=== PATIENT | male | born 1950 | race Hispanic/Latino ===

== ENCOUNTER 2017-10-05 07:49 | Emergency (ER) | payer BC, MEDICARE ==
[~2017-10-05] VITALS: Ht 172.7 cm; Wt 81.6 kg
[2017-10-05 09:07] VITALS: BP 155/89
== END 2017-10-05 10:20 | disposition home or self-care (01) ==
LOC: ER 07:49
DX: Z43.1 Encounter for attention to gastrostomy (principal); I10 Essential (primary) hypertension; E11.9 Type 2 diabetes mellitus without complications; I50.9 Heart failure, unspecified; Z86.73 Personal history of transient ischemic attack (TIA), and cerebral infarction without residual deficits
CPT/HCPCS: 99283

== ENCOUNTER 2017-10-05 16:58 | Emergency (ER) | payer MEDICARE ==
[~2017-10-05] VITALS: Ht 172.7 cm; Wt 81.6 kg
== END 2017-10-05 17:07 | disposition home or self-care (01) ==
LOC: ER 16:58
DX: Z43.1 Encounter for attention to gastrostomy (principal); I10 Essential (primary) hypertension; E11.9 Type 2 diabetes mellitus without complications; Z86.73 Personal history of transient ischemic attack (TIA), and cerebral infarction without residual deficits
CPT/HCPCS: 99282

== ENCOUNTER 2017-10-06 19:40 | Observation (INO) | payer MEDICARE, OTHER ==
[~2017-10-06] VITALS: Ht 172.7 cm; Wt 76.7 kg
[2017-10-06 22:53] LABS: BASOPHILS # (AUTO) 0.1 (0.0-0.1); BASOPHILS % 0.9 % (0.0-1.0); EOSINOPHILS # (AUTO) 0.3 (0.0-0.4); EOSINOPHILS % 4.1 % (0.0-6.0); HEMATOCRIT 36.5 % (38.2-49.6); HEMOGLOBIN 11.8 g/dL (14.0-18.0); LYMPHOCYTES # (AUTO) 2.1 (1.0-3.2); LYMPHOCYTES % 26.9 % (18.0-39.1); MEAN CORPUSCULAR HEMOGLOBIN 27.3 pg (28-32); MEAN CORPUSCULAR HGB CONC 32.3 g/dL (31-35); MEAN CORPUSCULAR VOLUME 84.5 fL (81-99); MONOCYTES # (AUTO) 0.8 (0.2-0.8); MONOCYTES % 10.2 % (4.4-11.3); NEUTROPHILS # (AUTO) 4.5 (2.1-6.9); NEUTROPHILS % 57.5 % (38.7-80.0); PLATELET COUNT 365 x10e3/uL (140-360); RED BLOOD COUNT 4.32 x10e6/uL (4.3-5.7); RED CELL DISTRIBUTION WIDTH 19.3 % (11.7-14.4)
[2017-10-06 23:03] LABS: INR 1.14; PARTIAL THROMBOPLASTIN TIME 30.8 seconds (23.8-35.5); PROTHROMBIN TIME 15.2 seconds (11.9-14.5)
[2017-10-06 23:08] LABS: ANION GAP 13.6 mmol/L (8-16); BLOOD UREA NITROGEN 17 mg/dL (7-26); BUN/CREATININE RATIO 26 (6-25); CALCIUM 9.6 mg/dL (8.4-10.2); CARBON DIOXIDE 28 mmol/L (22-29); CHLORIDE 98 mmol/L (98-107); CREATININE, SERUM 0.65 mg/dL (0.72-1.25); EST GLOMERULAR FILTRATION RATE > 60 ML/MIN (60-); GLUCOSE 123 mg/dL (74-118); POTASSIUM 3.6 mmol/L (3.5-5.1); SODIUM 136 mmol/L (136-145)
[2017-10-07] MEDS ORDERED: DEXTROSE 50% SYRINGE 50 ML IV PRN
[2017-10-07] MEDS ORDERED: HYDRALAZINE HCL 20 MG/ML VIAL IV PRN
[2017-10-07] MEDS ORDERED: ONDANSETRON HCL INJ 2 MG/ML VIAL IV PRN
[2017-10-07] MEDS ORDERED: ATORVASTATIN CA20 MG PEG (00:05)
[2017-10-07] MEDS ORDERED: METFORMIN HCL500 MG PEG (00:05)
[2017-10-07] MEDS ORDERED: ASPIR 8181 MG PEG (00:05)
[2017-10-07] MEDS ORDERED: LISINOPRIL10 MG PEG (00:05)
[2017-10-07] MEDS ORDERED: METOPROLOL TART50 MG PEG (00:05)
[2017-10-07] MEDS ORDERED: DOXAZOSIN MESYLA2 MG PEG (00:05)
[2017-10-07] MEDS ORDERED: ATIVAN1 MG PEG (00:05)
[2017-10-07] MEDS ORDERED: SERTRALINE HCL50 MG PEG (00:05)
[2017-10-07] MEDS ORDERED: GABAPENTIN300 MG PEG (00:05)
[2017-10-07] MEDS ORDERED: AMLODIPINE BESY10 MG PEG (00:05)
[2017-10-07] MEDS ORDERED: DOCUSATE SODIU100 MG PEG (00:05)
[2017-10-07] MEDS ORDERED: NYSTATIN1 EAC1 PEG (00:05)
[2017-10-07] MEDS ORDERED: APLXABAN PEG (00:05)
[2017-10-07] MEDS ORDERED: MAGNESIUM OXID400 MG PEG (00:05)
[2017-10-07] MEDS ORDERED: MELATONIN3 MG PEG (00:05)
[2017-10-07] MEDS ORDERED: ARICEPT5 MG PEG (00:05)
[2017-10-07] MEDS ORDERED: FAMOTIDINE20 MG PEG (00:05)
[2017-10-07] MEDS ORDERED: MODAFINIL100 MG PEG (00:05)
[2017-10-07] MEDS: SODIUM CHLORIDE 0.9% 1000ML 1,000 ML IV SCH ×2 (00:17→13:10)
[2017-10-07 01:50] VITALS: BP 161/75
[2017-10-07 03:53] VITALS: BP 161/75
[2017-10-07 05:00] VITALS: BP 147/72
[2017-10-07] MEDS: INSULIN REGULAR, HUMAN 100 UNIT/1 ML 3ML VIAL SQ SCH ×2 (07:30→11:30)
[2017-10-07 08:28] VITALS: BP 171/94
[2017-10-07] MEDS ORDERED: MIDAZOLAM HCL 2 MG/2 ML VIAL ONE (09:24)
[2017-10-07] MEDS ORDERED: LIDOCAINE HCL 2% LOCAL 20 ML VIAL ONE (09:24)
[2017-10-07] MEDS ORDERED: FENTANYL CITRATE/PF 100MCG/2 ML INJ ONE (09:24)
[2017-10-07] MEDS ORDERED: SODIUM CHLORIDE 0.9% 500ML 1,000 ML ONE (09:25)
[2017-10-07] MEDS ORDERED: IOPAMIDOL 370 MG/ML 200 ML INFUS..BTL INJ ONE (09:54)
[2017-10-07 12:42] VITALS: BP 134/98
--- NOTE | 2017-10-07 14:41 | Diagnostic Imaging Report ---
Gastrostomy placement October 07, 2017 Pre-Procedure Diagnosis: Inability to tolerate oral feeding. Post-procedure Diagnosis:Inability to tolerate oral feeding. Indication for procedure: Dislodged gastrostomy Service Desk Agent: Freda Bang Sound Printer: None Sedation: Moderate sedation was provided with intravenous fentanyl and Versed. Heart rate, rhythm and oxygen saturation were monitored in real-time by a dedicated interventional radiology nurse under my direct supervision. Blood pressure was monitored in 5 minute increments. 1% lidocaine was used for local anesthesia. Total sedation time: 30 minutes Radiation Dose: 105.9 cGycm2 (Dose Area Product) Fluoroscopy time: 0.3 minutes Estimate blood loss: <5 mL Blood administered: None Complications: None Implants/Grafts: 14-Vietnamese Endovine Gastrostomy Specimen: None Procedure: Informed consent was obtained and the patient placed supine. The patient's noted that the gastrostomy catheter had been dislodged 4 times in the previous 72 hours. The gastrostomy was replaced with different hospitals each time it was dislodged. There are no available comparison studies. A timeout was performed. The abdomen was prepped and draped in standard sterile fashion. The ostomy of the previously placed gastrostomy was probed with a KMP catheter and Glidewire. The catheter was passed through the tract into the gastric body. Contrast injection confirmed placement. The KMP was exchanged for a 14-Vietnamese balloon retention Endovine gastrostomy catheter. The retention balloon was insufflated with 5 mL normal saline. Contrast injection confirmed placement. The retention bumper was sutured to the skin given recurrent dislodgment. Sterile dressing was applied. Findings: Gastrostomy catheter within the gastric body. Impression: 1. Successful 14-Vietnamese gastrostomy catheter placement. 2. The retention bumper was sutured to the patient's skin given recurrent dislodgment. The patient's was educated regarding available ports for feeding and the balloon port. This report was generated with voice-recognition technology. Errors in airfield engineer officer can occur. Please interpret accordingly and contact a radiologist if there are any questions regarding the report. Signed by: Dr. Quintin Bang M.D. on 10/07/2017 2:37 PM
--- NOTE | 2017-10-07 14:41 | Diagnostic Imaging Report ---
Gastrostomy placement October 07, 2017 Pre-Procedure Diagnosis: Inability to tolerate oral feeding. Post-procedure Diagnosis:Inability to tolerate oral feeding. Indication for procedure: Dislodged gastrostomy Chili Maker: Freda Bang Senior Cost Analyst: None Sedation: Moderate sedation was provided with intravenous fentanyl and Versed. Heart rate, rhythm and oxygen saturation were monitored in real-time by a dedicated interventional radiology nurse under my direct supervision. Blood pressure was monitored in 5 minute increments. 1% lidocaine was used for local anesthesia. Total sedation time: 30 minutes Radiation Dose: 105.9 cGycm2 (Dose Area Product) Fluoroscopy time: 0.3 minutes Estimate blood loss: <5 mL Blood administered: None Complications: None Implants/Grafts: 14-Kenyan Endovine Gastrostomy Specimen: None Procedure: Informed consent was obtained and the patient placed supine. The patient's noted that the gastrostomy catheter had been dislodged 4 times in the previous 72 hours. The gastrostomy was replaced with different hospitals each time it was dislodged. There are no available comparison studies. A timeout was performed. The abdomen was prepped and draped in standard sterile fashion. The ostomy of the previously placed gastrostomy was probed with a KMP catheter and Glidewire. The catheter was passed through the tract into the gastric body. Contrast injection confirmed placement. The KMP was exchanged for a 14-Kenyan balloon retention Endovine gastrostomy catheter. The retention balloon was insufflated with 5 mL normal saline. Contrast injection confirmed placement. The retention bumper was sutured to the skin given recurrent dislodgment. Sterile dressing was applied. Findings: Gastrostomy catheter within the gastric body. Impression: 1. Successful 14-Kenyan gastrostomy catheter placement. 2. The retention bumper was sutured to the patient's skin given recurrent dislodgment. The patient's was educated regarding available ports for feeding and the balloon port. This report was generated with voice-recognition technology. Errors in job order clerk can occur. Please interpret accordingly and contact a radiologist if there are any questions regarding the report. Signed by: Dr. Quintin Bang M.D. on 10/07/2017 2:37 PM
== END 2017-10-07 14:55 ==
LOC: ER 19:40 → ERHOLD 10-07 00:17 → IMCU 10-07 01:23
DX: Z43.1 Encounter for attention to gastrostomy (principal); I69.320 Aphasia following cerebral infarction; I69.351 Hemiplegia and hemiparesis following cerebral infarction affecting right dominant side
CPT/HCPCS: 36415 ×2; 49440; 74470; 80048; 82948; 85025; 85610; 85730; 96361; 99284; C1769; G0378; J0360; J2001; J2250; J7030; J7040; Q9967

== ENCOUNTER → 2017-10-20 | Outpatient (CLI) | payer OTHER ==
[~2017-10-20] MED LIST: AMLODIPINE BESY10 MG PEG; APLXABAN PEG; ARICEPT5 MG PEG; ASPIR 8181 MG PEG; ATIVAN1 MG PEG; ATORVASTATIN CA20 MG PEG; DOCUSATE SODIU100 MG PEG; DOXAZOSIN MESYLA2 MG PEG; FAMOTIDINE20 MG PEG; GABAPENTIN300 MG PEG; LISINOPRIL10 MG PEG; MAGNESIUM OXID400 MG PEG; MELATONIN3 MG PEG; METFORMIN HCL500 MG PEG; METOPROLOL TART50 MG PEG; MODAFINIL100 MG PEG; NYSTATIN1 EAC1 PEG; SERTRALINE HCL50 MG PEG
[2017-10-20 17:07] LABS: BASOPHILS # (AUTO) 0.1 (0.0-0.1); BASOPHILS % 0.9 % (0.0-1.0); EOSINOPHILS # (AUTO) 0.3 (0.0-0.4); EOSINOPHILS % 3.5 % (0.0-6.0); HEMATOCRIT 37.5 % (38.2-49.6); HEMOGLOBIN 12.1 g/dL (14.0-18.0); LYMPHOCYTES # (AUTO) 1.8 (1.0-3.2); LYMPHOCYTES % 23.1 % (18.0-39.1); MEAN CORPUSCULAR HEMOGLOBIN 28.1 pg (28-32); MEAN CORPUSCULAR HGB CONC 32.3 g/dL (31-35); MONOCYTES # (AUTO) 0.7 (0.2-0.8); MONOCYTES % 9.6 % (4.4-11.3); NEUTROPHILS # (AUTO) 4.8 (2.1-6.9); NEUTROPHILS % 62.5 % (38.7-80.0); PLATELET COUNT 264 x10e3/uL (140-360); RED BLOOD COUNT 4.31 x10e6/uL (4.3-5.7); RED CELL DISTRIBUTION WIDTH 18.2 % (11.7-14.4)
[2017-10-20 17:21] LABS: BLOOD UREA NITROGEN 21 mg/dL (7-26); BUN/CREATININE RATIO 34 (6-25); CALCIUM 10.3 mg/dL (8.4-10.2); CARBON DIOXIDE 26 mmol/L (22-29); CHLORIDE 96 mmol/L (98-107); CREATININE, SERUM 0.62 mg/dL (0.72-1.25); EST GLOMERULAR FILTRATION RATE > 60 ML/MIN (60-); GLUCOSE 75 mg/dL (74-118); SODIUM 135 mmol/L (136-145)
== END ==
LOC: NPA 13:30
DX: Z02.89 Encounter for other administrative examinations (principal)
CPT/HCPCS: 36415; 80048; 85025

== ENCOUNTER → 2017-10-31 | Outpatient (CLI) | payer OTHER ==
[2017-10-31 17:17] LABS: ANION GAP 15.2 mmol/L (8-16); BLOOD UREA NITROGEN 13 mg/dL (7-26); BUN/CREATININE RATIO 21 (6-25); CALCIUM 9.8 mg/dL (8.4-10.2); CARBON DIOXIDE 25 mmol/L (22-29); CHLORIDE 98 mmol/L (98-107); CREATININE, SERUM 0.63 mg/dL (0.72-1.25); EST GLOMERULAR FILTRATION RATE > 60 ML/MIN (60-); GLUCOSE 95 mg/dL (74-118); POTASSIUM 4.2 mmol/L (3.5-5.1); SODIUM 134 mmol/L (136-145)
[2017-10-31 17:18] LABS: BASOPHILS % 0.6 % (0.0-1.0); EOSINOPHILS # (AUTO) 0.2 (0.0-0.4); EOSINOPHILS % 3.4 % (0.0-6.0); HEMATOCRIT 37.5 % (38.2-49.6); HEMOGLOBIN 12.3 g/dL (14.0-18.0); LYMPHOCYTES % 28.5 % (18.0-39.1); MEAN CORPUSCULAR HGB CONC 32.8 g/dL (31-35); MEAN CORPUSCULAR VOLUME 85.4 fL (81-99); MONOCYTES # (AUTO) 0.7 (0.2-0.8); MONOCYTES % 9.2 % (4.4-11.3); NEUTROPHILS # (AUTO) 4.1 (2.1-6.9); PLATELET COUNT 291 x10e3/uL (140-360); RED BLOOD COUNT 4.39 x10e6/uL (4.3-5.7); RED CELL DISTRIBUTION WIDTH 16.6 % (11.7-14.4)
== END ==
LOC: NPA 11:00
DX: Z02.89 Encounter for other administrative examinations (principal)
CPT/HCPCS: 36415; 80048; 85025

== ENCOUNTER → 2017-11-21 | Outpatient (CLI) | payer OTHER ==
[2017-11-21 17:32] LABS: BASOPHILS % 0.3 % (0.0-1.0); EOSINOPHILS # (AUTO) 0.2 (0.0-0.4); EOSINOPHILS % 3.3 % (0.0-6.0); HEMATOCRIT 38.7 % (38.2-49.6); HEMOGLOBIN 12.7 g/dL (14.0-18.0); LYMPHOCYTES # (AUTO) 2.2 (1.0-3.2); MEAN CORPUSCULAR HEMOGLOBIN 28.7 pg (28-32); MEAN CORPUSCULAR HGB CONC 32.8 g/dL (31-35); MEAN CORPUSCULAR VOLUME 87.6 fL (81-99); MONOCYTES # (AUTO) 0.5 (0.2-0.8); NEUTROPHILS # (AUTO) 3.8 (2.1-6.9); NEUTROPHILS % 56.3 % (38.7-80.0); PLATELET COUNT 280 x10e3/uL (140-360); RED BLOOD COUNT 4.42 x10e6/uL (4.3-5.7); RED CELL DISTRIBUTION WIDTH 16.2 % (11.7-14.4)
[2017-11-21 17:33] LABS: ANION GAP 12.6 mmol/L (8-16); BLOOD UREA NITROGEN 19 mg/dL (7-26); BUN/CREATININE RATIO 24 (6-25); CALCIUM 9.8 mg/dL (8.4-10.2); CARBON DIOXIDE 24 mmol/L (22-29); CHLORIDE 106 mmol/L (98-107); CREATININE, SERUM 0.78 mg/dL (0.72-1.25); EST GLOMERULAR FILTRATION RATE > 60 ML/MIN (60-); GLUCOSE 113 mg/dL (74-118); POTASSIUM 3.6 mmol/L (3.5-5.1); SODIUM 139 mmol/L (136-145)
== END ==
LOC: NPA 12:22
DX: Z02.89 Encounter for other administrative examinations (principal)
CPT/HCPCS: 36415; 80048; 85025

== ENCOUNTER 2017-12-10 17:40 | Emergency (ER) | payer MEDICARE, OTHER ==
[~2017-12-10] VITALS: Ht 172.7 cm; Wt 78.9 kg
--- OUTSIDE RECORDS SUMMARY | 2017-12-10 17:44 | XMS REPORT ---
Author Author [facility] Address Unknown Phone Unavailable Care Team Providers Care Junior Net Developer Name Role Phone JAXSON SOSA Unavailable Unavailable Problems This patient has no known problems. Allergies, Adverse Reactions, Alerts This patient has no known allergies or adverse reactions. Medications This patient has no known medications. 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 Post-procedure Diagnosis:Inability to tolerate oral feeding. Indication for procedure: Dislodged gastrostomy Film Spooler: Freda Bang Molder Automobile Carpets: None Sedation: Moderate sedation was provided with intravenous fentanyl and Versed. Heart rate, rhythm and oxygen saturation were monitored in real-time by a dedicated interventional radiology nurse under my direct supervision. Blood pressure was monitored in 5 minute increments. 1% lidocaine was used for local anesthesia. Total sedation time: 30 minutes Radiation Dose: 105.9 cGycm2 (Dose Area Product) Fluoroscopy time: 0.3 minutes Estimate blood loss: <5 mL Blood administered: None Complications: None Implants/Grafts: 14-Danish Endovine Gastrostomy Specimen: None Procedure: Informed consent was obtained and the patient placed supine. The patient's noted that the gastrostomy catheter had been dislodged 4 times in the previous 72 hours. The gastrostomy was replaced with different hospitals each time it was dislodged. There are no available comparison studies. A timeout was performed. The abdomen was prepped and draped in standard sterile fashion. The ostomy of the previously placed gastrostomy was probed with a KMP catheter and Glidewire. The catheter was passed through the tract into the gastric body. Contrast injection confirmed placement. The KMP was exchanged for a 14-Danish balloon retention Endovine gastrostomy catheter. The retention balloon was insufflated with 5 mL normal saline. Contrast injection confirmed placement. The retention bumper was sutured to the skin given recurrent dislodgment. Sterile dressing was applied. Findings: Gastrostomy catheter within the gastric body. Impression: 1. Successful 14-Danish gastrostomy catheter placement. 2. The retention bumper was sutured to the patient's skin given recurrent dislodgment. The patient's was educated regarding available ports for feeding and the balloon port. This report was generated with voice-recognition technology. Errors in registered dental hygienist can occur. Please interpret accordingly and contact a radiologist if there are any questions regarding the report. Signed by: Dr. Adenike Bang M.D. on 10/07/2017 2: 37 PM Dictated By: ADENIKE BANG MD 1437 Transcribed By: SUSAN on 10/07/17 1437 COPY TO: JAXSON SOSA MD IR CONSULT [place] [address] Patient Name: HILARIO MARSH JR MR #: [id number] : 1950 Age/Sex: 66/M Req #: [id number] Adm Physician: JAXSON SOSA MD Ordered by: ROBERT SAN MD Report #: [id number] Location: [facility] Room/Bed: [place] [address] Procedure: [id number] DX/IR CONSULT Exam Date: Exam Time: REPORT STATUS: Signed Gastrostomy placement October 07, 2017 Pre-Procedure Diagnosis: Inability to tolerate oral feeding. Post-procedure Diagnosis:Inability to tolerate oral feeding. Indication for procedure: Dislodged gastrostomy Film Spooler: Freda Bang Molder Automobile Carpets: None Sedation: Moderate sedation was provided with intravenous fentanyl and Versed. Heart rate, rhythm and oxygen saturation were monitored in real-time by a dedicated interventional radiology nurse under my direct supervision. Blood pressure was monitored in 5 minute increments. 1% lidocaine was used for local anesthesia. Total sedation time: 30 minutes Radiation Dose: 105.9 cGycm2 (Dose Area Product) Fluoroscopy time: 0.3 minutes Estimate blood loss: <5 mL Blood administered: None Complications : None Implants/Grafts: 14-Danish Endovine Gastrostomy Specimen: None Procedure: Informed consent was obtained and the patient placed supine. The patient's noted that the gastrostomy catheter had been dislodged 4 times in the previous 72 hours. The gastrostomy was replaced with different hospitals each time it was dislodged. There are no available comparison studies. A timeout was performed. The abdomen was prepped and draped in standard sterile fashion. The ostomy of the previously placed gastrostomy was probed with a KMP catheter and Glidewire. The catheter was passed through the tract into the gastric body. Contrast injection confirmed placement. The KMP was exchanged for a 14-Danish balloon retention Endovine gastrostomy catheter. The retention balloon was insufflated with 5 mL normal saline. Contrast injection confirmed placement. The retention bumper was sutured to the skin given recurrent dislodgment. Sterile dressing was applied. Findings: Gastrostomy catheter within the gastric body. Impression: 1. Successful 14-Danish gastrostomy catheter placement. 2. The retention bumper was sutured to the patient's skin given recurrent dislodgment. The patient's was educated regarding available ports for feeding and the balloon port. This report was generated with voice- recognition technology. Errors in registered dental hygienist can occur. Please interpret accordingly and contact a radiologist if there are any questions regarding the report. Signed by: Dr. Adenike Bang M.D. on 10/07/2017 2:37 PM Dictated By: ADENIKE BANG MD 1437 Transcribed By: SUSAN on 10/07/17 1437 COPY TO: ROBERT SAN MD
--- OUTSIDE RECORDS SUMMARY | 2017-12-10 17:44 | XMS REPORT | Clinical Summary ---
Author Author [facility] Address Unknown Phone Unavailable Care Team Providers Care Account Support Manager Name Role Phone Asked, Pcp PCP Unavailable Allergies Active Allergy Reactions Severity Noted Date Comments Penicillins Hives High 11/13/2014 Current Medications Prescription Sig. Disp. Refills Start End Date Status Date tamsulosin (FLOMAX) 0.4 12/17/19 Active mg capsule,extended 17 release 24hr metoprolol succinate XL 12/17/19 Active (TOPROL-XL) 25 mg 24 hr 17 tablet metFORMIN (GLUCOPHAGE) 12/18/19 Active 1,000 mg tablet 17 lisinopril 12/17/19 Active (PRINIVIL,ZESTRIL) 20 mg 17 tablet HYDROcodone-acetaminophen 01/28/20 Active (NORCO) 10-325 mg per 17 tablet gabapentin (NEURONTIN) 12/18/19 Active 600 mg tablet 17 furosemide (LASIX) 20 mg 12/18/19 Active tablet 17 amLODIPine (NORVASC) 10 12/18/19 Active mg tablet 17 omeprazole (PriLOSEC) 20 12/18/19 08/09/20 Discontin MG capsule 17 17 ued hydroCHLOROthiazide 12/18/19 07/31/20 Discontin (HYDRODIURIL) 25 MG 17 17 ued tablet clopidogrel (PLAVIX) 75 12/06/19 08/09/20 Discontin mg tablet 17 17 ued atorvastatin (LIPITOR) 20 12/18/19 08/09/20 Discontin MG tablet 17 17 ued aspirin 81 mg chewable Chew. 08/09/20 Discontin tablet 17 ued traMADol (ULTRAM) 50 mg Take 1 tablet (50 mg 08/09/20 08/19/20 tablet total) by mouth every 6 17 17 (six) hours as needed for moderate pain for up to 10 days. acetaminophen (TYLENOL) Take 20.3 mL (650 mg 08/09/20 09/08/20 650 mg/20.3 mL solution total) by mouth every 6 17 17 (six) hours as needed (Fever) for up to 30 days. ondansetron (ZOFRAN) 4 Infuse 2 mL (4 mg total) 20 mL 08/09/20 mg/2 mL injection into a venous catheter 17 every 8 (eight) hours as needed for nausea or vomiting for up to 30 days. atorvastatin (LIPITOR) 80 Take 1 tablet (80 mg 30 tablet 0 08/09/20 09/08/20 MG tablet total) by mouth nightly 17 for 30 days. hydrALAZINE (APRESOLINE) Infuse 0.5 mL (10 mg 1 mL 08/09/20 09/08/20 20 mg/mL injection total) into a venous 17 catheter every 6 (six) hours as needed for high blood pressure for up to 30 days. QUEtiapine (SEROquel) 25 Take 1 tablet (25 mg 30 tablet 0 08/09/20 09/08/20 MG tablet total) by mouth daily for 17 17 30 days. QUEtiapine (SEROquel) 50 Take 1 tablet (50 mg 30 tablet 0 08/09/20 09/08/20 MG tablet total) by mouth nightly 17 for 30 days. ipratropium-albuterol Take 3 mL by nebulization 360 mL 0 08/09/20 (DUO-NEB) 0.5-2.5 mg/mL every 6 (six) hours for nebulizer 30 days. apixaban (ELIQUIS) 5 mg Take 1 tablet (5 mg 60 tablet 0 08/09/20 tablet total) by mouth 2 (two) 17 17 times a day for 30 days. white petrolatum-mineral Administer to both eyes 08/09/20 09/08/20 oil (ARTIFICIAL TEARS) nightly as needed (dry 83-15 % ointment eyes) for up to 30 days. ramelteon (ROZEREM) 8 mg Take 1 tablet (8 mg 30 tablet 0 08/09/20 tablet total) by mouth nightly 17 for 30 days. insulin GLARGINE (LANTUS) Inject 10 Units under the 6 mL 0 08/09/20 09/08/20 100 unit/mL injection skin every 12 (twelve) 17 17 (vial) hours for 30 days. insulin lispro (HumaLOG) Inject 0-12 Units under 10 mL 12 08/09/20 09/08/20 100 unit/mL injection the skin every 4 (four) 17 17 hours for 30 days. dextrose 50% syringe Infuse 25 mL (12.5 g 08/09/20 09/08/20 total) into a venous 17 17 catheter as needed (If blood glucose is 41-69 mg/dL) for up to 30 days. dextrose 10 % infusion Infuse 40 mL/hr into a 500 mL 08/09/20 venous catheter 17 17 continuously as needed (bedside glucose LESS than 70 mg/dL) for up to 30 days. dextrose 50% syringe Infuse 50 mL (25 g total) 08/09/20 09/08/20 into a venous catheter as 17 17 needed (If blood glucose is <40 mg/dL) for up to 30 days. docusate sodium (COLACE) Take 1 capsule (100 mg 08/09/20 09/08/20 100 MG capsule total) by mouth 2 (two) 17 17 times a day as needed for constipation (for stool softener) for up to 30 days. polyethylene glycol Take 17 g by mouth 2 60 packet 0 08/09/20 (MIRALAX) 17 gram packet (two) times a day for 30 17 17 days. sennosides (SENOKOT) 8.8 Take 10 mL (17.6 mg 600 mL 0 08/09/2009/08 mg/5 mL syrup total) by mouth 2 (two) 17 17 times a day for 30 days. acetylcysteine (MUCOMYST) Take 4 mL (400 mg total) 720 mL 0 08/09/20 09/08/20 100 mg/mL (10 %) by nebulization every 4 17 17 nebulizer solution (four) hours for 30 days. aspirin 81 mg chewable Chew 1 tablet (81 mg 30 tablet 0 08/09/20 tablet total) daily for 30 days. 17 17 potassium chloride Take 30 mL (40 mEq total) 900 mL 0 08/09/2009/08 (KAYCIEL) 20 mEq/15 mL by mouth daily for 17 solution days. pantoprazole 4 mg/mL in Infuse 10 mL (40 mg 1 each 08/09/20 09/08/20 sodium chloride injection total) into a venous catheter daily before breakfast for 30 days. FLUoxetine (PROzac) 20 MG Take 1 capsule (20 mg 30 capsule 0 08/09/20 09/08/20 capsule total) by mouth every morning for 30 days. chlorthalidone (HYGROTEN) Take 1 tablet (25 mg 30 tablet 0 08/09/20 09/08/20 25 MG tablet total) by mouth daily for 30 days. Active Problems Problem Noted Date Acute pulmonary embolism 08/02/2017 Osteoarthritis of right hip 07/26/2017 Semicoma 07/26/2017 Other dysphagia 06/29/2017 Overview: Added automatically from request for surgery [id number] Osteoarthritis of left hip 03/08/2017 Encounters Date Type Specialty Care Team Description 10/13/2017 Documentation Rigo White 08/09/2017 Documentation Neurological Intensive Cirilo Vincentcy Care 08/04/2017 Anesthesia Neurological Intensive Shadi Wolf MD Event Care 08/04/2017 Procedure Pass Gastroenterology 08/04/2017 Surgery Gastroenterology Angel Velasco MD EGD W/PEG 08/03/2017 Anesthesia Neurological Intensive Marielos Snider CRNA Event Care 08/03/2017 Procedure Pass Plastic Surgery 08/03/2017 Surgery Plastic Surgery Akila Matt, BEDSIDE TRACHEOSTOMY 08/03/2017 Procedure Pass Gastroenterology 07/26/2017 Hospital Neurological Intensive Hilario Mathis MD Cerebrovascular accident - Encounter Care (CVA) due to occlusion of 08/09/2017 left middle cerebral artery (Primary Dx); Localized osteoarthrosis of left hip; Primary osteoarthritis of right hip; Semicoma; Primary osteoarthritis of left hip; Osteoarthritis of right hip, unspecified osteoarthritis type; Respiratory distress; Other acute pulmonary embolism without acute cor pulmonale; Other dysphagia 07/26/2017 Procedure Pass Neurological Intensive Care 07/26/2017 Procedure Pass Neurological Intensive Care 07/26/2017 Anesthesia Orthopedic Surgery Jennifer Senior MD Event 07/26/2017 Orders Only Neurology Sissy Mcgee NP 07/26/2017 Anesthesia Neurological Intensive Duy Cueva MD Event Care 07/26/2017 Procedure Pass Orthopedic Surgery 07/26/2017 Surgery Orthopedic Surgery Hilario Mathis MD ARTHROPLASTY, HIP, TOTAL 03/08/2017 Hospital Orthopedic Surgery Hilario Mathis MD - Encounter 03/09/2017 03/08/2017 Anesthesia Orthopedic Surgery Rigo Ko MD Event 03/08/2017 Procedure Pass Orthopedic Surgery 03/08/2017 Surgery Orthopedic Surgery Hilario Mathis MD TOTAL HIP ARTHROPLASTY 02/17/2017 Lab Lab Hilario Mathis MD Unilateral primary osteoarthritis, left hip (Primary Dx) after 12/09/2016 Immunizations Name Dates Previously Given Next Due Pneumococcal Conjugate 03/09/2017 13-[facility]ent Social History Tobacco Use Types Packs/Day Years Used Date Former Smoker Sex Assigned at Date Recorded Not on file Last Filed Vital Signs Vital Sign Reading Time Taken Blood Pressure 141/67 08/09/2017 4:00 PM CDT Pulse 57 08/09/2017 4:00 PM CDT Temperature 36.7 C (98.1 F) 08/09/2017 4:00 PM CDT Respiratory Rate 13 08/09/2017 4:00 PM CDT Oxygen Saturation 97% 08/09/2017 4:00 PM CDT Inhaled Oxygen - - Concentration Weight 89.1 kg (196 lb 8 oz) 07/26/2017 7:57 AM CDT Height 172.7 cm (5' 8") 07/26/2017 7:57 AM CDT Body Mass Index 29.88 07/26/2017 7:57 AM CDT Plan of Treatment Health Maintenance Due Date Last Done Comments FOOT EXAM 1958 OPHTHALMOLOGY EXAM 1958 URINE MICROALBUMIN 1958 COLONOSCOPY 1998 ZOSTER VACCINE 2008 PNEUMOCOCCAL 2013 POLYSACCHARIDE VACCINE AGE 65 AND OVER INFLUENZA VACCINE 05/10/2017 PNEUMOCOCCAL-13 Completed 03/09/2017 Implants Implanted Type Area Custom Shop Worker Device Expiration Model / Identifier Date Serial / Lot Device Vasclr Clsr Vasoactive Cardiovasc N/A: N/A 05/09/2018 [id number] / Intstnl Peptd 6fr Angio-Seal - ular / [id number] Implants [id number] Implanted: 07/26/2017 (Quantity not on file) Device Vasclr Clsr Vasoactive Cardiovasc N/A: N/A 12/07/2017 [id number] / Intstnl Peptd 8fr Angio-Seal - ular / [id number] Implants [id number] Implanted: 07/26/2017 (Quantity not on file) Head Fml Sld Modlr Co-Cr 40x-6mm Hip Joint Left: Hip BIOMET INC 08/10 [id number] / [id number] - [id number] Implants / Implanted: Qty: 1 on 03/08/2017 by [id number] Hilario Mathis MD G7 Osseoti 4 Hole Shell 56mm F - IPM Left: Hip BIOMET, INC 2025 [id number] IMPLANT / Implanted: Qty: 1 on 03/08/2017 by DEVICES / Hilario Mathis MD [id number] Liner G7 Neutral Arcomxl G40 - IPM Left: Hip BIOMET, INC 07/10/2021 [id number] IMPLANT / Implanted: Qty: 1 on 03/08/2017 by DEVICES / Hilario Mathis MD [id number] Tprlc 133 Type1 Pps So 10.0 IPM Left: Hip BIOMET, INC 01/08/2027 [id number] Taperloc Complete Stem - [id number] IMPLANT / Implanted: Qty: 1 on 03/08/2017 by TONIO / Hilario Mathis MD [id number] GLuiz Osseoti Ltd Hole Shell 54mm - IPM Right: Hip BIOMET, INC 2026 [id number] IMPLANT / Implanted: Qty: 1 on 07/26/2017 by TONIO / Hilario Mathis MD [id number] G7 Neutral E1 Liner 40mm F - IPM Right: Hip BI[employer]ET, INC 01/22/2022 [id number] IMPLANT / Implanted: Qty: 1 on 07/26/2017 by TONIO / Hilario Mathis MD [id number] Tprlc 133 Fp Type1 Pps So 8.0, IPM Right: Hip BIOMET, INC 04/09/2027 [id number] Taperloc Complete Stem - [id number] IMPLANT / Implanted: Qty: 1 on 07/26/2017 by DEVICES / Hilario Mathis MD [id number] Head Feml Ceramc Type 1 Taperd Orthopedic Right: Hip [employer] ServicesET INC 03/10 650 [id number] / Option 40mm Biolox Delta - Trauma / [id number] Implants [id number] Implanted: Qty: 1 on 07/26/2017 by Hilario Mathis MD Catheter [id number] Reperfusion High Surgical N/A: N/A [employer] INC [id number] Flow Tubing 6.0f 132cm - [id number] Implants; KIT / Implanted: 07/26/2017 (Quantity not Expanders; / on file) Extenders; Surgical Wires Device Revasclrzn Flow Rstrtn Surgical N/A: N/A [employer] INC SFR3 4 20 20x4mm Solitaire - [id number] Implants; 10 / Implanted: 07/26/2017 (Quantity not Expanders; / on file) Extenders; Surgical Wires Neuron Select 5f 130 [place] - Surgical N/A: N/A [employer] INC [id number] Implants; R / Implanted: 07/26/2017 (Quantity not Expanders; / on file) Extenders; Surgical Wires Procedures Procedure Name Priority Date/Time Associated Diagnosis Comments EGD W/PEG 08/04/2017 Other dysphagia 2:00 PM CDT CATH DUAL LUMEN PICC Routine 08/03/2017 Results for this 1:17 PM CDT procedure are in the results section. US GUIDED VASCULAR Routine 08/03/2017 Results for this ACCESS 1:17 PM CDT procedure are in the results section. CVL PICC INSERT 5 YRS Routine 08/03/2017 Results for this OR > 1:17 PM CDT procedure are in the results section. BEDSIDE TRACHEOSTOMY 08/03/2017 Respiratory Failure 11:40 AM CDT BRONCHOSCOPY Routine 08/02/2017 Respiratory distress Results for this 2:19 PM CDT procedure are in the results section. INTUBATION Routine 08/01/2017 Respiratory distress Results for this 7:39 PM CDT procedure are in the results section. ECHOCARDIOGRAM Routine 07/28/2017 Results for this TRANSESOPHAGEAL W DOPPLER 4:28 PM CDT procedure are in the COLORFLOW results section. EEG EXTENDED 41 - 60 MINS STAT 07/27/2017 Results for this 11:11 PM CDT procedure are in the results section. ECHOCARDIOGRAM 2D Routine 07/27/2017 Results for this COMPLETE W MMODE SPECTRAL 6:30 AM CDT procedure are in the COLOR DOPPLER ([id number]) results section. INTUBATION Routine 07/26/2017 Localized osteoarthrosis Results for this 11:59 PM CDT of left hip procedure are in the Cerebrovascular accident results section. (CVA) due to occlusion of left middle cerebral artery Primary osteoarthritis of right hip Semicoma Primary osteoarthritis of left hip LA INSERT NON-TUNNEL CV Routine 07/26/2017 Cerebrovascular accident Results for this CATH 11:56 PM CDT (CVA) due to occlusion of procedure are in the left middle cerebral results section. artery ARTHROPLASTY, HIP, TOTAL 07/26/2017 Localized osteoarthrosis 8:15 AM CDT of left hip Special Needs GRANT BIOMET LA AN SPINAL BLOCK Routine 07/26/2017 PROCEDURE FOR PAIN 7:52 AM CDT Procedure Note - Duy Cueva MD - 07/26/2017 7:51 AM CDT Spinal Block Performed by: DUY CUEVA Authorized by: DUY CUEVA Patient Location: Pre-op Start Time: 07/26/2017 7:42 AM End Time: 07/26/2017 7:50 AM Reason for Block: at surgeon's request, post-op pain management , procedure for pain Staff: Beth toussaint: DUY CUEVA Performed by: Anesthesio norbert patient identified , IV checked, site and side verified, risks and benefits discussed, procedure verified, surgical consent complete, patient position confirmed, monitors and equipment checked and pre-op evaluation complete TIme Out Performed: 7 7:39 AM Spinal Block: Patient Position: Sitting Prep: Betadine Monitoring : Blood pressure monitoring , continuous pulse oximetry and heart rate Approach: Right paramedian Interspace : L3-4 Injection Technique: Single injection Needle: Needle Type: Pencil-tip Needle Gauge: 22 G Assessment : Coagulatio n status: Coagulatio n status verified Block assessment : No apparent complicati ons and patient tolerated procedure well LA AN SPINAL BLOCK Routine 07/26/2017 POST-OP PAIN 7:52 AM CDT Procedure Note - Duy Cueva MD - 07/26/2017 7:51 AM CDT Spinal Block Performed by: DUY CUEVA Authorized by: DUY CUEVA Patient Location: Pre-op Start Time: 07/26/2017 7:42 AM End Time: 07/26/2017 7:50 AM Reason for Block: at surgeon's request, post-op pain management , procedure for pain Staff: Beth toussaint: DUY CUEVA Performed by: Anesthesio norbert patient identified , IV checked, site and side verified, risks and benefits discussed, procedure verified, surgical consent complete, patient position confirmed, monitors and equipment checked and pre-op evaluation complete TIme Out Performed: 7:39 AM Spinal Block: Patient Position: Sitting Prep: Betadine Monitoring : Blood pressure monitoring , continuous pulse oximetry and heart rate Approach: Right paramedian Interspace : L3-4 Injection Technique: Single injection Needle: Needle Type: Pencil-tip Needle Gauge: 22 G Assessment : Coagulatio n status: Coagulatio n status verified Block assessment : No apparent complicati ons and patient tolerated procedure well LA AN ELECTIVE Routine 03/08/2017 ENDOTRACHEAL AIRWAY 8:17 AM CDT Procedure Note - Kevin Bonilla CRNA - 03/08/2017 8:15 AM CDT Airway Date/Time: 03/08/2017 7:47 AM Performed by: KEVIN BONILLA Authorized by: RIGO KO Location: OR Urgency: Elective Difficult Airway: No Resident/C RNA: KEVIN BONILLA Performed by: resident/C RNA Preoxygena valdez with 100% O2: Yes Mask Ventilatio n: Easy mask Final Airway Type: Endotrache al airway Final Endotrache al Airway: ETT Technique Used: Direct laryngosco py Devices/Me thods Used in Placement: Intubatin g stylet Insertion Site: Oral Blade Type: Avalos Laryngosco pe Blade/Vide olaryngosc ope Blade Size: 2 ETT Size (mm): 8.0 Measured from: Teeth ETT to Teeth (cm): 23 Placement Verified by: CO2 detection, direct visualizat ion and equal breath sounds Laryngosco pic view: Grade I - full view of glottis Rapid Sequence Induction (RSI): No Number of Attempts at Approach: 1 Easy atraumatic intubation . Dentition unchanged LA AN SPINAL BLOCK Routine 03/08/2017 PROCEDURE FOR PAIN 8:01 AM CDT Procedure Note - Rigo Ko MD - 03/08/2017 7:59 AM CDT Spinal Block Performed by: RIGO KO Authorized by: RIGO KO Patient Location: Holding area Start Time: 03/08/2017 7:14 AM End Time: 03/08/2017 7:28 AM Reason for Block: at surgeon's request, post-op pain management , procedure for pain Staff: Anesthesio logist: RIGO KO Performed by: Anesthesio norbert patient identified , IV checked, site and side verified, risks and benefits discussed, procedure verified, surgical consent complete, patient position confirmed, monitors and equipment checked and pre-op evaluation complete TIme Out Performed: 03/08/2017 7:13 AM Spinal Block: Patient Position: Sitting Prep: Betadine Monitoring : Blood pressure monitoring , continuous pulse oximetry and heart rate Approach: Right paramedian Interspace : L2-3 Injection Technique: Single injection Needle: Needle Type: Quincke Needle Gauge: 22 G Assessment : Coagulatio n status: Coagulatio n status verified Block assessment : No apparent complicati ons and patient tolerated procedure well Post procedure: Patient returned to supine position with left lateral displaceme nt Notes: 2 attempts, failed X1 at L23, RPM, 25ga pencan, success X1 at L23, RPM- 22ga quincke-3. 5", pt tolerated well LA AN SPINAL BLOCK Routine 03/08/2017 POST-OP PAIN 8:01 AM CDT Procedure Note - Rigo Ko MD - 03/08/2017 7:59 AM CDT Spinal Block Performed by: RIGO KO Authorized by: RIGO KO Patient Location: Holding area Start Time: 03/08/2017 7:14 AM End Time: 03/08/2017 7:28 AM Reason for Block: at surgeon's request, post-op pain management , procedure for pain Staff: Keno logist: RIGO KO Performed by: Anesthesirocio toussaint patient identified , IV checked, site and side verified, risks and benefits discussed, procedure verified, surgical consent complete, patient position confirmed, monitors and equipment checked and pre-op evaluation complete TIme Out Performed: 03/08/2017 7:13 AM Spinal Block: Patient Position: Sitting Prep: Betadine Monitoring : Blood pressure monitoring , continuous pulse oximetry and heart rate Approach: Right paramedian Interspace : L2-3 Injection Technique: Single injection Needle: Needle Type: Quincke Needle Gauge: 22 G Assessment : Coagulatio n status: Coagulatio n status verified Block assessment : No apparent complicati ons and patient tolerated procedure well Post procedure: Patient returned to supine position with left lateral displaceme nt Notes: 2 attempts, failed X1 at L23, RPM, 25ga pencan, success X1 at L23, RPM- 22ga quincke-3. 5", pt tolerated well TOTAL HIP ARTHROPLASTY 03/08/2017 LEFT HIP OSTEOARTHRITIS 7:15 AM CDT M16.12 Case Notes BIOMET GRANT Special Needs BIOMET GRANT after 12/09/2016 Results * POC glucose (08/09/2017 3:49 PM) Only the most recent of 92 results within the time period is included. Component Value Ref Range POC glucose 182 (H) 65 - 99 mg/dL Comment: [facility] Notified RN Meter ID: [id number] Tag Marker: Suzan Gayle Specimen Performing Laboratory [facility] DEPARTMENT OF PATHOLOGY AND GENOMIC MEDICINE [address] [place] [address] * XR Hip 2-3 View Left (08/09/2017 11:28 AM) Specimen Performing Laboratory [facility] [address] [place] [id number] Narrative EXAMINATION:XR HIP 2-3 VIEWS LEFT CLINICAL HISTORY:Post Op, post op evaluation prior to transfer to facility COMPARISON:None. IMPRESSION: Left total hip arthroplasty is in place. There is no evidence of hardware fracture or dislocation. [facility]-[id number] Procedure Note Interface, Radiology Results Incoming - 08/09/2017 11:42 AM CDT EXAMINATION: XR HIP 2-3 VIEWS LEFT CLINICAL HISTORY: Post Op, post op evaluation prior to transfer to facility COMPARISON: None. IMPRESSION: Left total hip arthroplasty is in place. There is no evidence of hardware fracture or dislocation. [facility]-[id number] * XR Chest 1 Vw Portable (08/09/2017 5:01 AM) Only the most recent of 15 results within the time period is included. Specimen Performing Laboratory [facility] [address] [place] [id number] Narrative EXAMINATION:XR CHEST 1 VW PORTABLE CLINICAL HISTORY: Ventilator Patient COMPARISON:08/08/2017 IMPRESSION: Support lines and tubes remain in stable position. Cardiomediastinal silhouette is stable. Pulmonary vasculature is top normal.No focal infiltrate, effusion or pneumothorax seen. [facility]-[id number] Procedure Note Hm Interface, Radiology Results Incoming - 08/09/2017 6:13 AM CDT EXAMINATION: XR CHEST 1 VW PORTABLE CLINICAL HISTORY: Ventilator Patient COMPARISON: 08/08/2017 IMPRESSION: Support lines and tubes remain in stable position. Cardiomediastinal silhouette is stable. Pulmonary vasculature is top normal. No focal infiltrate, effusion or pneumothorax seen. [facility]-[id number] * Ionized calcium, arterial (08/09/2017 4:15 AM) Only the most recent of 14 results within the time period is included. Component Value Ref Range Ionized calcium, arterial 1.21 1.11 - 1.32 mmol/L Specimen Performing Laboratory Blood [facility] DEPARTMENT OF PATHOLOGY AND GENOMIC MEDICINE [address] [place] [id number] * CBC hemogram (08/09/2017 4:15 AM) Only the most recent of 5 results within the time period is included. Component Value Ref Range WBC 9.85 4.50 - 11.00 k/uL RBC 3.97 (L) 4.40 - 6.00 m/uL HGB 10.1 (L) 14.0 - 18.0 g/dL HCT 33.7 (L) 41.0 - 51.0 % MCV 84.9 82.0 - 100.0 fL MCH 25.4 (L) 27.0 - 34.0 pg MCHC 30.0 (L) 31.0 - 37.0 g/dL RDW - SD 55.0 37.0 - 55.0 fL MPV 10.7 8.8 - 13.2 fL Platelet count 468 (H) 150 - 400 k/uL Nucleated RBC 0.00 /100 WBC Specimen Performing Laboratory Blood [facility] DEPARTMENT OF PATHOLOGY AND GENOMIC MEDICINE [address] [place] [address] * Arterial blood gas (08/09/2017 4:15 AM) Only the most recent of 17 results within the time period is included. Component Value Ref Range pH, arterial 7.44 7.35 - 7.45 pCO2, arterial 43 35 - 45 mmHg pO2, arterial 191 (H) 80 - 90 mmHg Bicarbonate, arterial 28.9 (H) 21.0 - 28.0 mmol/L Base excess, arterial 5 (H) -2 - 2 mEq/L O2 saturation, arterial 99 95 - 100 % Specimen Performing Laboratory Blood [facility] DEPARTMENT OF PATHOLOGY AND GENOMIC MEDICINE [address] [place] [id number] * Estimated GFR (08/09/2017 4:00 AM) Only the most recent of 19 results within the time period is included. Component Value Ref Range GFR Non Af Amer >90 mL/min/1.73 m2 GFR Af Amer >90 mL/min/1.73 m2 Comment: Chronic kidney disease: <60 mL/min/1.73m2 Kidney failure: <15 mL/min/1.73m2 The estimated GFR is calculated from the IDMS-traceable Modification of Diet in Renal Disease Equation. The accuracy of the calculation is poor when the creatinine is normal. Calculated values >90 mL/min/1.73m2 are not reported. This equation has not been validated in children (<18 years), women, the elderly (>70 years), or ethnic groups other than Caucasians and Americans. Specimen Performing Laboratory Plasma specimen [facility] OF PATHOLOGY AND [address] [address] * Phosphorus level (08/09/2017 4:00 AM) Only the most recent of 17 results within the time period is included. Component Value Ref Range Phosphorus 3.3 2.4 - 4.5 mg/dL Specimen Performing Laboratory Plasma specimen [facility] PATHOLOGY AND [address] [id number] * Magnesium level (08/09/2017 4:00 AM) Only the most recent of 18 results within the time period is included. Component Value Ref Range Magnesium 2.7 (H) 1.6 - 2.4 mg/dL Specimen Performing Laboratory Plasma specimen [facility] DEPARTMENT OF PATHOLOGY AND [facility] MEDICINE [address] [place] [id number] * Basic metabolic panel (08/09/2017 4:00 AM) Only the most recent of 14 results within the time period is included. Component Value Ref Range Sodium 149 (H) 135 - 148 mEq/L Potassium 3.7 3.5 - 5.0 mEq/L Chloride 107 98 - 112 mEq/L CO2 30 24 - 31 mEq/L Anion gap 12 7 - 15 mEq/L Comment: Starting from January , anion gap calculation no longer incorporates potassium. Please note the change. BUN 44 (H) 8 - 23 mg/dL Creatinine 0.8 0.7 - 1.2 mg/dL Glucose 210 (H) 65 - 99 mg/dL Calcium 9.6 8.8 - 10.2 mg/dL Specimen Performing Laboratory Plasma specimen [facility] DEPARTMENT OF PATHOLOGY AND GENOMIC MEDICINE [address] [place] [address] * ECG 12 lead (08/08/2017 12:05 PM) Only the most recent of 3 results within the time period is included. Component Value Ref Range Ventricular rate 66 Atrial rate 66 LA interval 134 QRSD interval 90 QT interval 402 QTC interval 421 P axis 1 39 QRS axis 1 -64 T wave axis 64 EKG impression Normal sinus rhythm-Left anterior fascicular block-Anteroseptal infarct , age undetermined-Possible lateral infarct as cited before-Abnormal ECG-In automated comparison with ECG of 29-JUL-2017 16:56,-Anteroseptal infarct is now present-Questionable change in initial forces of Anterior leads- Specimen Performing Laboratory [facility] MUSE [address] [place] [address] * Potassium level (08/07/2017 6:05 PM) Only the most recent of 3 results within the time period is included. Component Value Ref Range Potassium 4.0 3.5 - 5.0 mEq/L Specimen Performing Laboratory Plasma specimen [facility] DEPARTMENT OF PATHOLOGY AND GENOMIC MEDICINE [address] [place] [id number] * CT Head Wo Contrast (08/07/2017 4:01 AM) Only the most recent of 5 results within the time period is included. Specimen Performing Laboratory [facility] [address] [place] [address] Narrative EXAMINATION:CT HEAD WO CONTRAST COMPARISON:[address] CLINICAL HISTORY:stroke started on apixaban TECHNIQUE: Up to date CT equipment and radiation dose reduction techniques were utilized. FINDINGS: Again noted is the partial left MCA infarct. There is no hemorrhagic conversion. Also again noted are age-related changes. There are no new areas of abnormal density. The ventricles are unchanged in size. IMPRESSION: No interval change. [facility]-[id number] Procedure Note Interface, Radiology Results Incoming - 08/07/2017 6:15 AM CDT EXAMINATION: CT HEAD WO CONTRAST COMPARISON: [address] CLINICAL HISTORY: stroke started on apixaban TECHNIQUE: Up to date CT equipment and radiation dose reduction techniques were utilized. FINDINGS: Again noted is the partial left MCA infarct. There is no hemorrhagic conversion. Also again noted are age-related changes. There are no new areas of abnormal density. The ventricles are unchanged in size. IMPRESSION: No interval change. [facility]-[id number] * Partial thromboplastin time, activated (08/07/2017 2:40 AM) Only the most recent of 10 results within the time period is included. Component Value Ref Range PTT 35.6 23.0 - 36.0 sec Comment: PTT therapeutic range for unfractionated heparin is 61.0-112.0 seconds which corresponds to Anti-Xa 0.3-0.7 U/ml. Specimen Performing Laboratory Blood [facility] DEPARTMENT OF PATHOLOGY AND [facility] [address] [place] [address], [place] [address] * Comprehensive metabolic panel (08/06/2017 1:52 AM) Only the most recent of 5 results within the time period is included. Component Value Ref Range Sodium 150 (H) 135 - 148 mEq/L Potassium 3.3 (L) 3.5 - 5.0 mEq/L Chloride 109 98 - 112 mEq/L CO2 29 24 - 31 mEq/L Anion gap 12 7 - 15 mEq/L Comment: Starting from January , anion gap calculation no longer incorporates potassium. Please note the change. BUN 35 (H) 8 - 23 mg/dL Creatinine 1.0 0.7 - 1.2 mg/dL Glucose 172 (H) 65 - 99 mg/dL Calcium 8.9 8.8 - 10.2 mg/dL Protein 6.0 (L) 6.3 - 8.3 g/dL Comment: [place] 4.6-7.0 g/dL 1 week 4.4-7.6 g/dL 7 months-1year 5.1-7.3 g/dL 1-2 years 5.6-7.5 g/dL >3 years 6.0-8.0 g/dL 18-150 6.3-8.3 g/dL Albumin 2.5 (L) 3.5 - 5.0 g/dL A/G ratio 0.7 0.7 - 3.8 Alkaline phosphatase 55 40 - 129 U/L AST 19 10 - 50 U/L ALT 10 5 - 50 U/L Total bilirubin 0.3 0.0 - 1.2 mg/dL Specimen Performing Laboratory Plasma specimen [facility] DEPARTMENT OF PATHOLOGY AND [facility] [address] [place] [address] * CBC with platelet and differential (08/06/2017 1:40 AM) Only the most recent of 13 results within the time period is included. Component Value Ref Range WBC 9.45 4.50 - 11.00 k/uL RBC 3.46 (L) 4.40 - 6.00 m/uL HGB 8.8 (L) 14.0 - 18.0 g/dL HCT 28.7 (L) 41.0 - 51.0 % MCV 82.9 82.0 - 100.0 fL MCH 25.4 (L) 27.0 - 34.0 pg MCHC 30.7 (L) 31.0 - 37.0 g/dL RDW - SD 52.3 37.0 - 55.0 fL MPV 10.6 8.8 - 13.2 fL Platelet count 361 150 - 400 k/uL Nucleated RBC 0.00 /100 WBC Neutrophils 71.1 (H) 39.0 - 69.0 % Lymphocytes 15.6 (L) 25.0 - 45.0 % Monocytes 8.7 0.0 - 10.0 % Eosinophils 3.1 0.0 - 5.0 % Basophils 0.5 0.0 - 1.0 % Immature granulocytes 1.0Comment: "Immature granulocytes" 0.0 - 1.0 % (promyelocytes, myelocytes, metamyelocytes) Specimen Performing Laboratory Blood [facility] DEPARTMENT OF PATHOLOGY AND [facility] MEDICINE [address] [place] [address] * Vancomycin level, trough (08/04/2017 11:30 AM) Component Value Ref Range Vancomycin, trough 13.5 10.0 - 20.0 ug/mL Comment: Therapeutic Ranges: Peak 30.0 - 40.0 ug/mL Trough 10.0 - 20.0 ug/mL Specimen Performing Laboratory Serum [facility] DEPARTMENT OF PATHOLOGY AND [facility] MEDICINE [address] [place] [address] * XR Abdomen 1 Vw Portable (08/03/2017 6:48 PM) Only the most recent of 3 results within the time period is included. Specimen Performing Laboratory [address] [address] Narrative EXAMINATION:XR ABDOMEN 1 VW PORTABLE CLINICAL HISTORY:Check dobhoff placement COMPARISON:August 02, 2017 IMPRESSION: Dobbhoff tube terminates in the distal stomach level, similar to prior. Bowel gas pattern is nonobstructive. [facility]-[id number] Procedure Note Interface, Radiology Results Incoming - 08/03/2017 6:54 PM CDT EXAMINATION: XR ABDOMEN 1 VW PORTABLE CLINICAL HISTORY: Check dobhoff placement COMPARISON: August 02, 2017 IMPRESSION: Dobbhoff tube terminates in the distal stomach level, similar to prior. Bowel gas pattern is nonobstructive. [facility]-[id number] * Transfuse RBC (08/03/2017 4:26 PM) * XR Picc Chest Portable (08/03/2017 2:08 PM) Specimen Performing Laboratory [facility] [address] [place] [address] Narrative EXAMINATION:XR PICC CHEST PORTABLE CLINICAL HISTORY:PICC line position verification COMPARISON:August 03, 2017 0300 hours chest IMPRESSION: Interval placement left PICC line catheter. Catheter tip superior vena cava level of T7. Endotracheal tube feeding tube and right IJ catheter unchanged. No pneumothorax. Central vascular prominence is stable Cardiomediastinal silhouette remains normal size with mild vascular ectasia [facility]-[id number] Procedure Note Interface, Radiology Results Incoming - 08/03/2017 2:24 PM CDT EXAMINATION: XR PICC CHEST PORTABLE CLINICAL HISTORY: PICC line position verification COMPARISON: August 03, 2017 0300 hours chest IMPRESSION: Interval placement left PICC line catheter. Catheter tip superior vena cava level of T7. Endotracheal tube feeding tube and right IJ catheter unchanged. No pneumothorax. Central vascular prominence is stable Cardiomediastinal silhouette remains normal size with mild vascular ectasia [facility]-[id number] * PICC INSERTION (08/03/2017 1:17 PM) Narrative Angel Blas 08/03/20171:17 PM PICC insertion Date/Time: 08/03/2017 1:17 PM Performed by: MANDY PROCTOR Authorized by: LEYDA HUBER V Consent: Consent obtained:Verbal Consent given by:Patient (PT. UNRESPONSIVE) [place] protocol: Relevant documents present and verified: yes Test results available and properly labeled: yes Imaging studies available: yes Site/side marked: yes Immediately prior to procedure, a time out was called: yes Patient identity confirmed:Arm band, provided demographic data, anonymous protocol, patient vented/unresponsive and hospital-assigned identification number Pre-procedure details: Hand hygiene: Hand hygiene performed prior to insertion Sterile barrier technique: All elements of maximal sterile technique followed Skin preparation:2% chlorhexidine Skin preparation agent: Skin preparation agent completely dried prior to procedure Anesthesia (see MAR for exact dosages): Anesthesia method:Local infiltration Local anesthetic:Lidocaine 1% w/o epi Route of administration:Subcutaneous PICC Line Placement Details (Will create an LDA): Patient position:Flat Indication:Known half-way IV therapy Location:Left brachial Site selection rationale:LIMITEDRIGHT ARM MOVEMENT Device Type:Non-valved Catheter size:5 Fr Unsuccessful Attempt(s): Location(s) Attempted:Left basilic Problems or complications:Unable to access vein PICC Characteristics: Catheter Brand:[employer] PICC External Catheter Length (cm):0 Internal Catheter Length (cm):43 Total Catheter Length (cm):43 Catheter Lot Number:[id number] Catheter Expiration Date:05/09/2019 Procedure Details: Landmarks identified: yes Ultrasound guidance: yes Sterile ultrasound techniques: Sterile gel and sterile probe covers were used Number of attempts:3 Number of PICC kits used during procedure:1 Purpose of procedure:PICC Placement Successful PICC Placement: Yes Patency/Placement:Flushes without difficulty, flushed with 10 mL normal saline, positive blood return, x-ray placement verified and injection cap placed PICC placed utlizing ultrasound-guided Modified Seldinger Technique: Yes Dressing/Securement:Antimicrobial dressing applied and catheter securement device Blood Loss Amount:Less than 20 mL Post-Procedure Details: Post-procedure:Dressing applied Tip placement confirmed by chest x-ray: Yes Patient tolerance of procedure:Tolerated well, no immediate complications * Prepare RBC, 2 Units (08/03/2017 10:15 AM) Component Value Ref Range Product name Red Blood Cells -1, Leukored Unit number [id number] Product code [id number] Dispense status Transfused Blood expiration date 20170825 Blood type code 5100 Blood type O POSITIVE Product name Ap[employer]is Red Cell AS3 #1 LR Unit number [id number] Product code [id number] Dispense status Transfused Blood expiration date 20170825 Blood type code 5100 Blood type O POSITIVE Specimen Performing Laboratory [facility] DEPARTMENT OF PATHOLOGY AND GENOMIC MEDICINE [address] [place] [address] * Type and screen (08/03/2017 10:15 AM) Only the most recent of 3 results within the time period is included. Component Value Ref Range ABO grouping O Rh type POS Antibody screen (gel) NEG Specimen Performing Laboratory Blood [facility] DEPARTMENT OF PATHOLOGY AND GENOMIC MEDICINE [address] [place] [address] * Insert arterial line (08/02/2017 11:35 PM) Only the most recent of 2 results within the time period is included. Narrative Jenni Hernandez MD 08/02/2017 11:35 PM Arterial Line Insertion Date/Time: 08/02/2017 11:34 PM Performed by: JENNI HERNANDEZ Authorized by: JENNI HERNANDEZ Consent: Consent obtained:Emergent situation Consent given by:Healthcare agent Indications: Indications: hemodynamic monitoring and multiple ABGs Pre-procedure details: Skin preparation:2% Chlorhexidine Sedation: Sedation type:Deep Anesthesia (see MAR for exact dosages): Anesthesia method:Local infiltration Local anesthetic:Lidocaine 1% w/o epi Procedure details: Location:L femoral Needle gauge:20 G Placement technique:Seldinger and ultrasound guided Number of attempts:1 Transducer: waveform confirmed Post-procedure details: Post-procedure:Biopatch applied, secured with tape, sterile dressing applied and sutured CMS:Normal Patient tolerance of procedure:Tolerated well, no immediate complications * Respiratory pathogen panel (08/02/2017 3:08 PM) Component Value Ref Range Respiratory pathogen Negative for all pathogens tested: panel Negative for Adenovirus Negative for Coronavirus HKU1 Negative for Coronavirus NL63 Negative for Coronavirus 229E Negative for Coronavirus OC43 Negative for Human Metapneumovirus Negative for Rhinovirus/Enterovirus Negative for Influenza A Negative for Influenza A/H1 Negative for Influenza A/H3 Negative for Influenza A/H1-2009 Negative for Influenza B Negative for Parainfluenza Virus 1 Negative for Parainfluenza Virus 2 Negative for Parainfluenza Virus 3 Negative for Parainfluenza Virus 4 Negative for Respiratory Syncytial Virus Negative for Bordetella pertussis Negative for Chlamydophila pneumoniae Negative for Mycoplasma pneumoniae This real-time PCR assay detects the presence of nucleic acids (RNA or DNA) for the respiratory pathogens listed. A result of "Not-detected" does not exclude the possibility of the presence of one or more pathogens at concentrations less than the detectable limits of the assay. Comment: Specimen Information Specimen Source: Bronchial Washing Specimen Site: [place] Specimen Performing Laboratory Bronchial washing - [facility] DEPARTMENT OF PATHOLOGY AND GENOMIC MEDICINE [facility] [address] [place] [address] * Sputum culture (08/02/2017 3:08 PM) Only the most recent of 2 results within the time period is included. Component Value Ref Range Sputum culture isolate Normal oral aly isolated. Comment: Specimen Information Specimen Source: Sputum Specimen Site: Expectorated Specimen Performing Laboratory Sputum - Expectorated [facility] DEPARTMENT OF PATHOLOGY AND GENOMIC MEDICINE [address] [place] [address] * Gram stain (08/02/2017 3:08 PM) Only the most recent of 2 results within the time period is included. Component Value Ref Range Gram stain isolate Many WBC's No organisms seen Comment: Specimen Information Specimen Source: Sputum Specimen Site: Expectorated Specimen Performing Laboratory Sputum - Expectorated [facility] [place] [address] * Pv transcranial Doppler intracranial arteries emboli detect w inj (08/02/2017 2:30 PM) Specimen Performing Laboratory [facility] [address] [place] [address] Narrative Vascular Ultrasound Laboratory Transcranial Doppler Report (TCD) [address] [place] [address] Pat.Name:Patience AGUILAR.ID:[id number] .Date: 08/02/2017Refer.MD:HILARIO MATHIS MD Exam Time: 2:54:00 PMStudy Type:TCD DOBAge:1950,66YSex: MALE Sonogrphr: Gianni Mosher RDMS, RVTPat. Stat.:Inpatient Room:NICU 1TapeVol: , CPT - 4: 85265, [id number] Event ID:[id number] Order ID:[id number] Reason for Study:Acute pulmonary embolism and ischemic stroke (persistent occlusion of M1 segment of left MCA) s/p thrombectomy. History of left hip replacement, hypertension, type 2 diabetes, coronary arterial disease. 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 10 cc of bacteriostatic saline with 0.5 cc of air was agitated and injected into the patient's right neck using a three-way attachment. Patient was unconscious and unable to perform a valsalva maneuver. Pressure was appled to the abdominal region upon injection of the saline. No HITS were noted. ADDITIONAL FINDINGS: 1.No HITS noted during saline injection; suggestive of no PFO. 2.Focally elevated velocities noted in the right MCA. 3.Poor temporal windows, bilaterally. Some visualization of arteries through the right temporal window. 4.Elevated velocities noted in the right siphon in comparison to the left siphon. 5.Technically difficult exam due to patient being unconscious and unable to turn head; left side remained independent. No visualization of the left vertebral artery. PHYSICIAN INTERPRETATION: 80689: Negative TCD bubble test. 27133: Mild stenosis in the right MCA.Suboptimal window on the left side. Both VA are antegrade. Signed 08/03/2017 07:31 AM Yousif Maurice MD, RPVI Procedure Note Interface, Radiology Results In - 08/03/2017 7:31 AM CDT Vascular Ultrasound Laboratory Transcranial Doppler Report (TCD) [address] [place] [address] Pat.Name: HILARIO AGUILAR Pat.ID: [id number] .Date: 08/02/2017 Refer.MD: HILARIO MATHIS MD Exam Time: 2:54:00 PM Study Type:TCD Age: 1 1950,66Y Sex: MALE Sonogrphr: Gianni Mosher RDMS, RADHAT Pat. Stat.:Inpatient Room: [facility] 1 Tape Vol: ST, CPT - 4: 31833, 69641 Echo Event ID:[id number] Order ID: [id number] Reason for Study:Acute pulmonary embolism and ischemic stroke (persistent occlusion of M1 segment of left MCA) s/p thrombectomy. History of left hip replacement, hypertension, type 2 diabetes, coronary arterial disease. 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 10 cc of bacteriostatic saline with 0.5 cc of air was agitated and injected into the patient's right neck using a three-way attachment. Patient was unconscious and unable to perform a valsalva maneuver. Pressure was appled to the abdominal region upon injection of the saline. No HITS were noted. ADDITIONAL FINDINGS: 1. No HITS noted during saline injection; suggestive of no PFO. 2. Focally elevated velocities noted in the right MCA. 3. Poor temporal windows, bilaterally. Some visualization of arteries through the right temporal window. 4. Elevated velocities noted in the right siphon in comparison to the left siphon. 5. Technically difficult exam due to patient being unconscious and unable to turn head; left side remained independent. No visualization of the left vertebral artery. PHYSICIAN INTERPRETATION: 02556: Negative TCD bubble test. 27699: Mild stenosis in the right MCA.Suboptimal window on the left side. Both VA are antegrade. Signed 08/03/2017 07:31 AM Yousif Maurice MD, RPVI * Bronchoscopy (08/02/2017 2:19 PM) Narrative Leyda Pate MD 08/02/20172:19 PM Bronchoscopy Date/Time: 08/02/2017 2:16 PM Performed by: LEYDA HUBER V Authorized by: LEYDA HUBER V Consent: Consent obtained:Verbal Consent given by:Spouse Alternatives discussed:No treatment [place] protocol: Procedure explained and questions answered to patient or proxy's satisfaction: yes Relevant documents present and verified: yes Test results available and properly labeled: yes Imaging studies available: yes Required blood products, implants, devices, and special equipment available: yes Site/side marked: yes Patient identity confirmed:Arm band Pre-procedure details: Indication:RIGHT LUNG COLLAPSE / PNEUMONIA Scope type:Flexible bronchoscope Airway:Intubated Monitoring devices:ECG, arterial line and pulse oximetry Sedation: Sedation Type:Narcotic Narcotic(s) used::Fentanyl Findings: Findings:Airway collapse and erythema (MUCOUS PLUG RIGHT LL) Secretion consistency:Thick Secretion amount:Large Washings: Washings:Right and left Sample sent for:Routine culture Post-procedure details: Patient tolerance of procedure: Patient tolerated the procedure well with no immediate complications Attending physician:CECILE OROZCO * Us duplex venous lower extremity (08/02/2017 10:59 AM) Specimen Performing Laboratory [facility] [address] [place] [address] Narrative Vascular Ultrasound Laboratory Lower Extremity Venous Report [address] [place] [address].Name:Patience AGUILAR.ID:[id number] .Date: 08/02/2017Refer.MD:HILARIO MATHIS MD Exam Time: 9:58:00 AMStudy Type:LE Venous DOBAge:1950,66YSex: MALE Sonogrphr: Malcolm Benson, RVSPat. Stat.:Inpatient Room:[facility]1TapeVol: FE, CPT - 4: 77052 Echo Event ID:[id number] Order ID:[id number] Reason for Study:Leg swelling. Patient went into progressive Respiratory distress and was intubated. Immobility. Race:C SUMMARY: DUPLEX SCAN OBSERVATIONS Deep VeinsSuperficial Veins RightLeft RightLeft EIV GSV (prox) NormalNormal CFV Normal Normal (above knee) Femoral Normal Normal GSV (dist) Normal Normal Profunda Normal Normal (below knee) Popliteal Normal Normal PT (prox) Normal NormalSSV Not Visualized Not Visualized PT (dist) Normal Normal Peroneal Normal Not Visualized RIGHT:There is normal compressibility with no evidence of echogenic material noted within the lumen of the visualized veins.Colorflow and Doppler signals are normal. LEFT: There is normal compressibility with no evidence of echogenic material noted within the lumen of the visualized veins. Colorflow and Doppler signals are normal. PRELIMINARY FINDINGS 1.Normal venous duplex exam of the visualized veins. PHYSICIAN INTERPRETATION 1.Venous examination of the both lower extremities demonstrates no evidence of venous thrombosis. Signed 08/02/2017 11:46 AM Richard Moya MD Procedure Note Interface, Radiology Results In - 08/02/2017 11:46 AM CDT Vascular Ultrasound Laboratory Lower Extremity Venous Report [address] [place] [address] Pat.Name: HILARIO AGUILAR Pat.ID: [id number] .Date: 08/02/2017 Refer.MD: HILARIO MATHIS MD Exam Time: 9:58:00 AM Study Type:LE Venous Age: 1 1950,66Y Sex: MALE Sonogrphr: RICK Thornton Pat. Stat.:Inpatient Room: [facility]#1 [facility] Vol: , CPT - 4: 52394 Echo Event ID:[id number] Order ID: [id number] Reason for Study:Leg swelling. Patient went into progressive Respiratory distress and was intubated. Immobility. Race: C SUMMARY: DUPLEX SCAN OBSERVATIONS Deep Veins Superficial Veins Right Left Right Left EIV GSV (prox) Normal Normal CFV Normal Normal (above knee) Femoral Normal Normal GSV (dist) Normal Normal Profunda Normal Normal (below knee) Popliteal Normal Normal PT (prox) Normal Normal SSV Not Visualized Not Visualized PT (dist) Normal Normal Peroneal Normal Not Visualized RIGHT: There is normal compressibility with no evidence of echogenic material noted within the lumen of the visualized veins. Colorflow and Doppler signals are normal. LEFT: There is normal compressibility with no evidence of echogenic material noted within the lumen of the visualized veins. Colorflow and Doppler signals are normal. PRELIMINARY FINDINGS 1. Normal venous duplex exam of the visualized veins. PHYSICIAN INTERPRETATION 1. Venous examination of the both lower extremities demonstrates no evidence of venous thrombosis. Signed 08/02/2017 11:46 AM Richard Moya MD * Troponin (08/02/2017 6:10 AM) Only the most recent of 4 results within the time period is included. Component Value Ref Range Troponin <0.30 0.00 - 0.30 ng/mL Comment: 0.30 - 1.49 ng/ml May indicate increased risk of acute coronary syndrome. >=1.5 ng/ml Consistent with acute myocardial infarction. The diagnostic value of a single normal or non-diagnostic result is questionable. Serial samples at 2-6 hour intervals are required to rule out acute myocardial injury. Specimen Performing Laboratory Plasma specimen [facility] DEPARTMENT OF PATHOLOGY AND GENOMIC MEDICINE [address] [place] [address] * Lactic acid level (08/02/2017 6:10 AM) Only the most recent of 2 results within the time period is included. Component Value Ref Range Lactic acid 2.2 0.5 - 2.2 mmol/L Specimen Performing Laboratory Plasma specimen [facility] DEPARTMENT OF PATHOLOGY AND GENOMIC MEDICINE [address] [place] [address] * Urinalysis, automated with microscopy (08/01/2017 11:50 PM) Component Value Ref Range Color, UA Yellow Appearance, UA Clear Specific gravity, UA 1.042 (H) 1.001 - 1.035 pH, UA 5.0 5.0 - 8.5 Protein, UA Negative Negative Glucose, UA Negative Negative Ketones, UA Negative Negative Bilirubin, UA Negative Negative Blood, UA Negative Negative Nitrite, UA Negative Negative Urobilinogen, UA <2.0 <2.0 Leukocyte esterase, UA Negative Negative Epithelial cells, UA <1 /HPF WBC, UA 1 0 - 1 /HPF RBC, UA 3 (H) 0 - 1 /HPF Bacteria, UA None seen None seen Yeast, UA None seen Yeast with pseudohyphae, None seen UA Specimen Performing Laboratory Urine [facility] DEPARTMENT OF PATHOLOGY AND GENOMIC MEDICINE [address] [place] [id number] * Blood culture, aerobic & anaerobic (08/01/2017 11:45 PM) Only the most recent of 2 results within the time period is included. Component Value Ref Range Blood culture isolate No growth after 5 days of incubation. Comment: Specimen Information Specimen Source: Blood Specimen Site: Antecubital, right Specimen Performing Laboratory Blood - Antecubital, [facility] DEPARTMENT OF PATHOLOGY AND GENOMIC MEDICINE right [address] [place] [address] * CT Angiogram Pe Chest (08/01/2017 10:48 PM) Specimen Performing Laboratory [facility] [address] [place] [address] Narrative EXAMINATION:CT ANGIOGRAM PE CHEST CLINICAL HISTORY: HYPOXEMIA TECHNIQUE:CT angiographic images of the chest were obtained during intravenous administration of iodinated contrast. Computerized reformatted images and 3-D MIP images were also obtained and archived (CT pulmonary embolus protocol).CT scans are performed using radiation dose reduction techniques.Technical factors are evaluated and adjusted to ensure appropriate moderation of exposure. Automated dose management technology is applied to adjust radiation exposure while achieving a diagnostic quality image. COMPARISON:None. Findings: There is a filling defect within the right upper lobe branch of the pulmonary artery. No saddle embolus is seen. No right ventricular hypertrophy is seen. No dissection or aneurysm is seen. There is consolidation and/or volume loss in the superior segment of the right lower lobe. There is some mild patchy infiltrates in the right middle lobe. No effusion is seen. Mild left lower lobe focal atelectasis is seen. No pulmonary mass or nodule is seen. Tip of ET tube is above the shelly. No mediastinal lymphadenopathy is seen. No pneumothorax is seen. Visualized upper abdomen shows no acute abnormality. IMPRESSION: 1. Small pulmonary embolus in the right upper lobe branch of the pulmonary artery. 2. Volume loss and/or consolidation in the superior segment of the right lower lobe. Underlying mass cannot be excluded. 3. Mild patchy infiltrates in the right middle lobe may represent inflammatory process. The charge nurse for the neuro ICU, Ankur, was informed of these findings on 08/01 11:04 PM and acknowledged understanding of the findings. [facility]-[id number] Procedure Note Interface, Radiology Results Incoming - 08/01/2017 11:07 PM CDT EXAMINATION: CT ANGIOGRAM PE CHEST CLINICAL HISTORY: HYPOXEMIA TECHNIQUE: CT angiographic images of the chest were obtained during intravenous administration of iodinated contrast. Computerized reformatted images and 3-D MIP images were also obtained and archived (CT pulmonary embolus protocol). CT scans are performed using radiation dose reduction techniques. Technical factors are evaluated and adjusted to ensure appropriate moderation of exposure. Automated dose management technology is applied to adjust radiation exposure while achieving a diagnostic quality image. COMPARISON: None. Findings: There is a filling defect within the right upper lobe branch of the pulmonary artery. No saddle embolus is seen. No right ventricular hypertrophy is seen. No dissection or aneurysm is seen. There is consolidation and/or volume loss in the superior segment of the right lower lobe. There is some mild patchy infiltrates in the right middle lobe. No effusion is seen. Mild left lower lobe focal atelectasis is seen. No pulmonary mass or nodule is seen. Tip of ET tube is above the shelly. No mediastinal lymphadenopathy is seen. No pneumothorax is seen. Visualized upper abdomen shows no acute abnormality. IMPRESSION: 1. Small pulmonary embolus in the right upper lobe branch of the pulmonary artery. 2. Volume loss and/or consolidation in the superior segment of the right lower lobe. Underlying mass cannot be excluded. 3. Mild patchy infiltrates in the right middle lobe may represent inflammatory process. The charge nurse for the neuro ICU, Ankur, was informed of these findings on 08/01 11:04 PM and acknowledged understanding of the findings. [facility]-[id number] * CK-MB (08/01/2017 9:10 PM) Only the most recent of 2 results within the time period is included. Component Value Ref Range CK-MB 1.8 1.0 - 10.4 ng/mL Specimen Performing Laboratory Plasma specimen [facility] DEPARTMENT OF PATHOLOGY AND GENOMIC MEDICINE [address] [place], [place] [id number] * Creatine kinase, total (CPK) (08/01/2017 9:10 PM) Only the most recent of 2 results within the time period is included. Component Value Ref Range Creatine kinase 136 39 - 308 U/L Specimen Performing Laboratory Plasma specimen [facility] DEPARTMENT OF PATHOLOGY AND GENOMIC MEDICINE [address] [place] [address] * INTUBATION (08/01/2017 7:39 PM) Narrative Leyda Pate MD 08/01/20177:39 PM Intubation Date/Time: 08/01/2017 7:35 PM Performed by: LEYDA HUBER V Authorized by: LEYDA HUBER V Consent: Consent obtained:Verbal Consent given by:Spouse Risks discussed:Aspiration Alternatives discussed:No treatment [place] protocol: Procedure explained and questions answered to patient or proxy's satisfaction: yes Relevant documents present and verified: yes Test results available and properly labeled: yes Imaging studies available: yes Required blood products, implants, devices, and special equipment available: yes Site/side marked: yes Immediately prior to procedure, a time out was called: yes Patient identity confirmed:Arm band Pre-procedure details: Patient status:Altered mental status Mallampati score:1 Pretreatment medications:Fentanyl Induction:Etomidate Paralytics:Rocuronium Procedure details: Preoxygenation:Bag valve mask CPR in progress: no Intubation method:Oral Technique:Direct laryngoscopy Laryngoscope blade:Mac 4 Grade view:1 Tube size (mm):8.0 Tube type:Cuffed Number of attempts:1 Tube visualized through cords: yes Placement assessment: ETT to lip:23 Tube secured with:ETT valle Breath sounds:Equal Placement verification: chest rise and condensation Post-procedure details: Patient tolerance of procedure:Tolerated well, no immediate complications Estimated blood loss:0 Complications:None * Ionized calcium (08/01/2017 4:00 AM) Only the most recent of 2 results within the time period is included. Component Value Ref Range pH 7.45 Ionized calcium 1.20 1.11 - 1.32 mmol/L Specimen Performing Laboratory Plasma specimen [facility] DEPARTMENT OF PATHOLOGY AND [facility] MEDICINE [address] [place] [address] * Sodium level (07/29/2017 10:25 PM) Only the most recent of 8 results within the time period is included. Component Value Ref Range Sodium 149 (H) 135 - 148 mEq/L Specimen Performing Laboratory Plasma specimen [facility] DEPARTMENT OF PATHOLOGY AND [facility] MEDICINE [address] [place] [address] * Echocardiogram transesophageal (07/28/2017 4:28 PM) Specimen [place] [address] Narrative Transesophageal Echo Report [address] [place] [address], [place] [address] Pat.Name:Jarad AGUILARsumit.ID:[id number] St.Date: 07/28/2017Refer.MD:HILARIO MATHIS MD Exam Time: 3:56:00 PMStudy Type:YELITZA Height:69inWeight:196lb BSA: 2.05 m2 DOBAge:1950 ,66Y Sex: MALEBP: 150/52 HR:53 bpmSonogrphr: Ernesto Nenaj luis Caldwell. Stat.:Inpatient Study Status:Final Echo Event ID:[id number] Order ID:[id number] Reason for Study:EVAL FOR CARDIOVASCULAR SOURCE OF EMBOLUS WITH NO IDENTIFIED NONCARDIAC SOURCE. CRYPTOGENIC EMBOLIC STROKE History / Clinical:Diabetes, Hyperlipidemia, Hypertension Procedures:Transesophageal Echo with Colorflow Doppler Race:C SUMMARY: No thrombus or mass is visualized in the LA or LA appendage. Moderate atherosclerotic changes seen in the descending aorta. No intracardiac shunt detected on saline bubble study. FINDINGS: YELITZA:The attending plate grainer apprentice performed the YELITZA procedure and waspresent for the entire duration. The patient was counseledand an informed consent was obtained. Topical and intravenousanesthesia was administered. The esophagus was intubatedwithout difficulty. The probe was passed to the gastricfundus and all standard echocardiographic views wereobtained. The patient tolerated the procedure well. LV: LV size is normal. LV systolic function is normal. Overall wallmotion is normal. Estimated EF is 60-64%. RV: RV size is normal. RV systolic function is normal. LA: LA volume is enlarged. No thrombus or mass is visualized in theLA or LA appendage. RA: RA volume is normal. AO: Aortic root diameter is normal in size. Moderate atheroscleroticchanges seen in the descending aorta. LANDON: No pericardial effusion. Cntrst: No intracardiac shunt detected. AV: Focal calcification of AV leaflets. MV: No structural MV abnormalities noted. PV: Pulmonic valve not well seen. TV: No structural TV abnormalities noted. YELITZA: Anesthesia: OtherASA Class: 4 Physician: Sonu Urrutia M.D.Library Historian: Nena Orozco DO Pre TEEBP HR Post YELITZA BP HR 150/52 53 159/52 60 Meds:Viscous xylocaine, Cetacaine spray to oropharynx, Per Anesthesia Complications: None Condition: Stable MEASUREMENTS: 2D Parasternal Long Boyd Ao Rtd 3.8 cm Signed 07/28/2017 05:37 PM Sonu Urrutia M.D. Procedure Note Interface, Radiology Results In - 07/28/2017 5:37 PM CDT Transesophageal Echo Report [id number], [place], [place] [address] Pat.Name: HILARIO AGUILAR Pat.ID: [id number] .Date: 07/28/2017 Refer.MD: HILARIO MATHIS MD Exam Time: 3:56:00 PM Study Type:YELITZA Height: 69in Weight: 196lb BSA: 2.05 m2 Age: 1 1950,66Y Sex: MALE BP: 150/52 HR: 53 bpm Sonogrphr: Nena Orozco DO Pat. Stat.:Inpatient Study Status:Final Echo Event ID:[id number] Order ID: [id number] Reason for Study:EVAL FOR CARDIOVASCULAR SOURCE OF EMBOLUS WITH NO IDENTIFIED NONCARDIAC SOURCE. CRYPTOGENIC EMBOLIC STROKE History / Clinical:Diabetes, Hyperlipidemia, Hypertension Procedures:Transesophageal Echo with Colorflow Doppler Race: C SUMMARY: No thrombus or mass is visualized in the LA or LA appendage. Moderate atherosclerotic changes seen in the descending aorta. No intracardiac shunt detected on saline bubble study. FINDINGS: YELITZA: The attending plate grainer apprentice performed the YELITZA procedure and was present for the entire duration. The patient was counseled and an informed consent was obtained. Topical and intravenous anesthesia was administered. The esophagus was intubated without difficulty. The probe was passed to the gastric fundus and all standard echocardiographic views were obtained. The patient tolerated the procedure well. LV: LV size is normal. LV systolic function is normal. Overall wall motion is normal. Estimated EF is 60-64%. RV: RV size is normal. RV systolic function is normal. LA: LA volume is enlarged. No thrombus or mass is visualized in the LA or LA appendage. RA: RA volume is normal. AO: Aortic root diameter is normal in size. Moderate atherosclerotic changes seen in the descending aorta. LANDON: No pericardial effusion. Cntrst: No intracardiac shunt detected. AV: Focal calcification of AV leaflets. MV: No structural MV abnormalities noted. PV: Pulmonic valve not well seen. TV: No structural TV abnormalities noted. YELITZA: Anesthesia: Other ASA Class: 4 Physician: Sonu Urrutai M.D. Library Historian: Nena Orozco DO Pre YELITZA BP HR Post YELITZA BP HR 150/52 53 159/52 60 Meds: Viscous xylocaine, Cetacaine spray to oropharynx, Per Anesthesia Complications: None Condition: Stable MEASUREMENTS: 2D Parasternal Long Boyd Ao Rtd 3.8 cm Signed 07/28/2017 05:37 PM Sonu Urrutia M.D. * EEG (routine) (07/27/2017 11:11 PM) Narrative EEG EXTENDED 41-60 MINS Date of Service: 07/27/17 Awake Recordings: The occipital dominant rhythm is 6-8 Hz and is poorly sustained. 18-22 Hz activity was present in all regions. 1.5-3 Hz activity was recorded in the left frontal central temporal region. The amplitudes and frequencies of the waveforms are depressed in the left hemisphere compared to the right. Sleep Recording: No epileptiform activity was recorded. Hyperventilation: Was not performed. Photic Stimulation: Was not performed. Impression: The findings are consistent with a diffuse disturbance in brain function with a focal lesion in the left hemisphere. No seizures occurred. ICD-10 Code: R569 * MRI Brain Wo Contrast (07/27/2017 1:00 PM) Specimen Performing Laboratory [address] [address] Narrative EXAMINATION:MRI BRAIN WO CONTRAST CLINICAL HISTORY:NEURO DEFICITACUTESINGLEPROGRESSING, STROKE COMPARISON:July 27, 2017 Findings: Acute left MCA ischemic infarct involving the left insula, left frontoparietal convexity and to lesser degree left temporal lobe with maximal axial dimension measuring 9.4 x 3.7 cm. There are also some scattered areas of recent ischemia in the adjacent left cerebral hemisphere parenchyma, right superior frontal parietal lobes, medial right parietal occipital region and right cerebellar hemisphere. No hemorrhage or significant mass effect. No hydrocephalus. Major flow voids are maintained. Chronic lacunar insult in the left thalamus and in the teagan. IMPRESSION: Large left MCA and scattered smaller areas of recent ischemia in different vascular distributions likely due to emboli. [facility]-[id number] Procedure Note Interface, Radiology Results Incoming - 07/27/2017 1:33 PM CDT EXAMINATION: MRI BRAIN WO CONTRAST CLINICAL HISTORY: NEURO DEFICIT ACUTE SINGLE PROGRESSING, STROKE COMPARISON: July 27, 2017 Findings: Acute left MCA ischemic infarct involving the left insula, left frontoparietal convexity and to lesser degree left temporal lobe with maximal axial dimension measuring 9.4 x 3.7 cm. There are also some scattered areas of recent ischemia in the adjacent left cerebral hemisphere parenchyma, right superior frontal parietal lobes, medial right parietal occipital region and right cerebellar hemisphere. No hemorrhage or significant mass effect. No hydrocephalus. Major flow voids are maintained. Chronic lacunar insult in the left thalamus and in the teagan. IMPRESSION: Large left MCA and scattered smaller areas of recent ischemia in different vascular distributions likely due to emboli. [facility]-[id number] * MRA Head Wo Contrast (07/27/2017 12:38 PM) Specimen Performing Laboratory [facility] [address] [place] [address] Narrative EXAMINATION:MRA HEAD WO CONTRAST CLINICAL HISTORY:STROKE COMPARISON:CT of the head dated July 26, 2017 TECHNIQUE: Head MRA using 3D [id number] technique with multi-planar MIP and 3D reconstruction. IMPRESSION: Persistent occlusion of the M1 segment of the left MCA with sluggish and absence of flow in the distal left MCA branches. Evolving ischemic changes in the left MCA territory is also seen. Atherosclerotic stable changes in the intracranial left vertebral artery with severe stenosis proximal to the vertebrobasilar junction. The right vertebral artery is patent. Moderate atherosclerotic changes are seen in the basilar artery. The posterior commuting arteries bilaterally are patent. [facility]-[id number] Procedure Note Interface, Radiology Results Incoming - 07/27/2017 1:15 PM CDT EXAMINATION: MRA HEAD WO CONTRAST CLINICAL HISTORY: STROKE COMPARISON: CT of the head dated July 26, 2017 TECHNIQUE: Head MRA using 3D [id number] technique with multi-planar MIP and 3D reconstruction. IMPRESSION: Persistent occlusion of the M1 segment of the left MCA with sluggish and absence of flow in the distal left MCA branches. Evolving ischemic changes in the left MCA territory is also seen. Atherosclerotic stable changes in the intracranial left vertebral artery with severe stenosis proximal to the vertebrobasilar junction. The right vertebral artery is patent. Moderate atherosclerotic changes are seen in the basilar artery. The posterior commuting arteries bilaterally are patent. [facility]-[id number] * Urinalysis screen and microscopy, with reflex to culture (07/27/2017 7:28 AM) Component Value Ref Range Specimen site [place] Color, UA Straw Appearance, UA Clear Specific gravity, UA 1.024 1.001 - 1.035 pH, UA 5.0 5.0 - 8.5 Protein, UA Negative Negative Glucose, UA 2+ (A) Negative Ketones, UA Trace (A) Negative Bilirubin, UA Negative Negative Blood, UA Small (A) Negative Nitrite, UA Negative Negative Urobilinogen, UA <2.0 <2.0 Leukocyte esterase, UA Negative Negative WBC, UA 1 0 - 1 /HPF RBC, UA <1 0 - 1 /HPF Bacteria, UA None seen None seen Yeast, UA None seen Yeast with pseudohyphae, None seen UA Specimen Performing Laboratory Urine [facility] DEPARTMENT OF PATHOLOGY AND GENOMIC MEDICINE [address] [place] [address] * Urine culture (07/27/2017 7:28 AM) Component Value Ref Range Urine culture SEE COMMENTComment: Bacteriuria screen negative. Specimen Performing Laboratory [facility] DEPARTMENT OF PATHOLOGY AND [facility] MEDICINE [address] [place] [address] * Echocardiogram complete w contrast and 3D if needed (07/27/2017 6:30 AM) Specimen Performing Laboratory [facility] [address] [place] [address] Narrative Echocardiography Report [address] [place] [address].Name:Patience AGUILAR.ID:[id number] .Date: 07/27/2017Refer.MD:HILARIO MATHIS MD Exam Time: 5:46:00 AMStudy Type:Routine Echo Height:69inWeight:196lb BSA: 2.05 m2 DOBAge:1950 ,66Y Sex: MALEBP: 140/51 HR:45 bpmSonogrphr: Lorin Quinones RDCS, RVT Pat. Stat.:Inpatient Room: Study Status:Final Echo Event ID:[id number] Order ID:[id number] Reason for Study:Stroke History / Clinical:Diabetes, Hyperlipidemia, Hypertension Procedures:2D Echo, Colorflow Doppler, Portable, Intravenous Saline Contrast FINDINGS: LV: LV size is normal. There is mild concentric LV hypertrophy. LVsystolic function is normal. Overall wall motion is normal.Estimated EF is 60-64%. RV: RV size is normal. RV systolic function is normal. LA: LA volume is mildly enlarged. RA: RA size is normal. AO: Aortic root diameter is normal. LANDON: No pericardial effusion. AV: Aortic valve sclerosis. Mild thickening and calcification of AVleaflets. MV: No structural MV abnormalities noted. PV: No structural PV abnormalities noted. TV: No structural TV abnormalities noted. A trace of tricuspid regurgitation Le: LV relaxation is impaired. Other:Insufficient TR jet to estimate PA systolic pressure. MEASUREMENTS: 2D Parasternal Long Boyd LVOT 2.3 cmLA Ds 3.4 cm LVIDd5.2 cmIndex 2.5 cm/m Ao An2.4 cm LVIDs3.6 cmAo Rtd 3.5 cm Index1.7 cm/m LV%fs 30.8 % LV Smuh170 g(122-174) IVSd 1.3 cmLVM Index 143.4 g/m2 LVPWd1.4 cmRWT 0.5 LA Sng Plane LA Area 25.5 cm2(8.8-23.4) LA Vol79.5 ml Index38.8 ml/m LA LngAx 6.8 cm DOPPLER LVOT Stroke Vol LVOT 2.3 cmLVOT CO 5.7 l/min LVOT TVI28.2 cmLVOT CI 2.8 l/m/m2 LVOT Tm361 msecHR 49 bpm LVOT SV117.1 ml AV For Flow/Valve Assess AV pkVel 227.2 cm/s (100-170) AV ET303 msec AV mnVel 143.6 cm/Rafaela AC/ET 0.3 AV pkPG 20.6 mmHgAV TVI 43.6 cm AV Mean G 10.3 mmHgAVpkAcRt 5066 cm/s2 AV AC 82 msec (83-118) Signed 07/27/2017 08:33 AM Andre Peck MD Procedure Note Interface, Radiology Results In - 07/27/2017 8:33 AM CDT Echocardiography Report [id number] [place] [id number] Pat.Name: HILARIO AGUILAR Pat.ID: [id number] St.Date: 07/27/2017 Refer.MD: HILARIO MATHIS MD Exam Time: 5:46:00 AM Study Type:Routine Echo Height: 69in Weight: 196lb BSA: 2.05 m2 Age: 1 1950,66Y Sex: MALE BP: 140/51 HR: 45 bpm Sonogrphr: Lorin Quinones RDCS, RVT Pat. Stat.:Inpatient Room: [place] [address] Study Status:Final Echo Event ID:[id number] Order ID: [id number] Reason for Study:Stroke History / Clinical:Diabetes, Hyperlipidemia, Hypertension Procedures:2D Echo, Colorflow Doppler, Portable, Intravenous Saline Contrast FINDINGS: LV: LV size is normal. There is mild concentric LV hypertrophy. LV systolic function is normal. Overall wall motion is normal. Estimated EF is 60-64%. RV: RV size is normal. RV systolic function is normal. LA: LA volume is mildly enlarged. RA: RA size is normal. AO: Aortic root diameter is normal. LANDON: No pericardial effusion. AV: Aortic valve sclerosis. Mild thickening and calcification of AV leaflets. MV: No structural MV abnormalities noted. PV: No structural PV abnormalities noted. TV: No structural TV abnormalities noted. A trace of tricuspid regurgitation Le: LV relaxation is impaired. Other: Insufficient TR jet to estimate PA systolic pressure. MEASUREMENTS: 2D Parasternal Long Boyd LVOT 2.3 cm LA Ds 3.4 cm LVIDd 5.2 cm Index 2.5 cm/m Ao An 2.4 cm LVIDs 3.6 cm Ao Rtd 3.5 cm Index 1.7 cm/m LV%fs 30.8 % LV Mass 294 g (122-174) IVSd 1.3 cm LVM Index 143.4 g/m2 LVPWd 1.4 cm RWT 0.5 LA Sng Plane LA Area 25.5 cm2 (8.8-23.4) LA Vol 79.5 ml Index 38.8 ml/m LA LngAx 6.8 cm DOPPLER LVOT Stroke Vol LVOT 2.3 cm LVOT CO 5.7 l/min LVOT TVI 28.2 cm LVOT CI 2.8 l/m/m2 LVOT Tm 361 msec HR 49 bpm LVOT SV 117.1 ml AV For Flow/Valve Assess AV pkVel 227.2 cm/s (100-170) AV ET 303 msec AV mnVel 143.6 cm/s AV AC/ET 0.3 AV pkPG 20.6 mmHg AV TVI 43.6 cm AV Mean G 10.3 mmHg AVpkAcRt 5066 cm/s2 AV AC 82 msec (83-118) Signed 07/27/2017 08:33 AM Andre Peck MD * INTUBATION (07/26/2017 11:59 PM) Suzanne Hernandez MD 07/26/2017 11:59 PM Intubation Date/Time: 07/26/2017 11:56 PM Performed by: JENNI HERNANDEZ Authorized by: JENNI HERNANDEZ Consent: Consent obtained:Written Consent given by:Spouse Risks discussed:Aspiration, brain injury, laryngeal injury, dental trauma, hypoxia, , bleeding and pneumothorax Alternatives discussed:No treatment [place] protocol: Patient identity confirmed:Arm band and hospital-assigned identification number Pre-procedure details: Patient status:Altered mental status Mallampati score:2 Pretreatment medications:Fentanyl and midazolam Induction:Etomidate Paralytics:Rocuronium Procedure details: Preoxygenation:Bag valve mask Intubation method:Oral Technique:Video laryngoscopy Laryngoscope blade:Mac 4 Grade view:2 Difficult airway?: No Tube size (mm):7.0 Number of attempts:2 Ventilation between attempts: yes Tube visualized through cords: yes Placement assessment: ETT to lip:24 cm Tube secured with:ETT valle Breath sounds:Equal and absent over the epigastrium Placement verification: chest rise, condensation, CXR verification, equal breath sounds and ETCO2 detector CXR findings:ETT in proper place Post-procedure details: Patient tolerance of procedure:Tolerated well, no immediate complications * CENTRAL LINE (07/26/2017 11:56 PM) Suzanne Nowak NP 07/26/2017 11:44 PM Central Line Insertion Performed by: LONI NOWAK Authorized by: LONI NOWAK Consent: Consent obtained:Written Consent given by:Spouse Risks discussed:Arterial puncture, incorrect placement, bleeding, infection and pneumothorax [place] protocol: Procedure explained and questions answered to patient or proxy's satisfaction: yes Patient identity confirmed:Arm band and hospital-assigned identification number Pre-procedure details: Hand hygiene: Hand hygiene performed prior to insertion Sterile barrier technique: All elements of maximal sterile technique followed Skin preparation:Hibiclens, alcohol and ChloraPrep Skin preparation agent: Skin preparation agent completely dried prior to procedure Sedation: Sedation Type:Systemic Systemic used::Propofol Anesthesia (see MAR for exact dosages): Anesthesia method:Local infiltration Local anesthetic:Lidocaine 1% w/o epi Procedure details: Catheter site: internal jugular vein Catheter Site Laterality:Right Patient position:Reverse Trendelenburg Landmarks identified: yes Ultrasound guidance: yes Sterile ultrasound techniques: Sterile gel and sterile probe covers were used Number of attempts:1 Successful placement: yes Post-procedure details: Post-procedure:Dressing applied Assessment:Blood return through all ports, free fluid flow, no pneumothorax on x-ray and placement verified by x-ray Patient tolerance of procedure:Tolerated well, no immediate complications * Sedimentation rate (07/26/2017 10:00 PM) Component Value Ref Range Sedimentation rate 60 (H) 0 - 10 mm/hr Specimen Performing Laboratory Blood [facility] DEPARTMENT OF PATHOLOGY AND GENOMIC MEDICINE [address] [place] [address] * Prothrombin time with INR (07/26/2017 10:00 PM) Component Value Ref Range Prothrombin time 14.0 12.0 - 15.0 sec INR 1.1 Comment: The International Normalized Ratio (INR) is a therapeutic monitoring tool for patients who are stable on oral anticoagulant therapy. An INR of 2.0-3.0 is suggested for deep vein thrombosis/pulmonary embolism. Specimen Performing Laboratory Blood [facility] DEPARTMENT OF PATHOLOGY AND [facility] MEDIC[facility] [address] [place] [id number] * Fibrinogen (07/26/2017 10:00 PM) Component Value Ref Range Fibrinogen 349 200 - 450 mg/dL Specimen Performing Laboratory Blood [facility] DEPARTMENT OF PATHOLOGY AND [facility] MEDICINE [address] [place] [phone] * Hemoglobin A1c (07/26/2017 10:00 PM) Component Value Ref Range Hemoglobin A1C 6.5 (H) 4.0 - 5.6 % Comment: HbA1c cutoffs for diagnosing diabetes: 4.0% - 5.6%=normal 5.7% - 6.4%=increased risk for diabetes (prediabetes) >=6.5%=diabetes Goals for glycemic control (ADA 2016) < 7.0% Target for non adults with diabetes. More or less stringent targets may be appropriate for individual patients. <7.5% Target for Children and adolescents with type 1 diabetes. Specimen Performing Laboratory Blood [facility] DEPARTMENT OF PATHOLOGY AND GENOMIC MEDICINE [address] [place] [address] * Surgical pathology request (07/26/2017 3:40 PM) Only the most recent of 3 results within the time period is included. Component Value Ref Range Surgical pathology report See link below for PDF Lab Report Specimen Performing Laboratory [facility] DEPARTMENT OF PATHOLOGY AND GENOMIC MEDICINE [address] [place] [address] * IR Perq Art M-Thrombect NFS (07/26/2017 2:39 PM) Specimen Performing [facility] [address] [place], [place] [id number] Narrative Clinical History: 66-year-old male who was undergoing a right hip replacement this morning with right hemiparesthesias and noninvasive imaging suggesting clot in the left middle cerebral artery. Technique: Written informed consent was obtained from the . Conscious sedation was provided by anesthesiology. Utilizing a right femoral percutaneous approach, following procedures were performed. Left common carotid injection, cervical evaluation in biplane projection. Left internal carotid injection, cerebral examination in biplane projection. Selective microcatheter injection into the left middle cerebral artery Successful clot extraction from the left M1 segment. Post clot extraction left internal carotid injection, cerebral examination in biplane projection. Intra-arterial nicardipine administration through a microcatheter Right common carotid injection, cervical evaluation in biplane projection. Right common carotid injection, cerebral examination in biplane projection. Left vertebral injection, cerebral examination in biplane projection. Right vertebral injection, cerebral examination in biplane projection. Right common femoral arteriogram in frontal projection. KA R 4693 mGy Findings: Left common carotid injection, cervical evaluation shows a normal bifurcation at the level of C3. There is no stenosis of the internal carotid artery. Left internal carotid injection, cerebral examination shows occlusion of the left M1 segment with some attempted collaterals. There is antegrade flow into both anterior cerebral arteries. The cortical veins, dural sinuses and deep venous system are normal. Atherosclerotic changes are noted in both anterior cerebral artery branches. With a guiding catheter in the left internal carotid artery, a velocity microcatheter with an Richie catheter was successful in crossing the M1 segment. The first attempted clot extraction with a Solitaire did get a small amount of clot out of the M1 but there remains thrombus. A second velocity microcatheter was maneuvered into the middle cerebral artery. Selective microcatheter injection shows there is no extravasation and there is flow in the posterior division of the middle cerebral artery. A Trevo retrieval device was then placed for 5 minutes with extraction under suction. This was successful at opening some of the posterior division of the middle cerebral artery but visible clot remains in the M1 segment. A third pass was made with a velocity microcatheter and a catalyst catheter. Selective microcatheter injection shows flow in the anterior division of the middle cerebral artery. With removal of the Trevo retrieval device under suction , additional clot was retrieved. Initial posttreatment left internal carotid injection shows protestant of flow into the middle cerebral artery and underlying stenosis of the M1 segment. Over the period of 10 minutes, there appeared to be either vasospasm or new clot. A microcatheter was maneuvered into the M1 segment where 5 mg of nicardipine was given as a slow bolus. Left internal carotid injection shows some antegrade flow into the posterior division but no flow in the anterior division of the middle cerebral artery. Right common carotid injection, cervical evaluation documents 60% stenosis of the internal carotid artery by NASCET criteria. Right common carotid injection, cerebral evaluation shows greater than 50-60% stenosis of the right M1 segment. There is antegrade flow into the right middle cerebral territory. The right A1 segment is small but there remains antegrade flow into the anterior cerebral territory. Atherosclerotic changes are noted in multiple middle cerebral branches. Left vertebral injection shows that the left vertebral artery Terminates in the posterior inferior cerebellar artery and is occluded beyond this level. Right vertebral injection, cerebral examination demonstrates antegrade flow to the basilar artery and posterior circulation. There are no branch occlusions. The cortical veins, dural sinuses and deep venous system are normal. Right common femoral arteriogram demonstrates a normal common femoral, superficial femoral and profunda arteries. There were no immediate complications. The femoral sheath was removed and hemostasis was maintained by manual compression and Angio-Seal Impression: Initially the left M1 segment was occluded. There was successful clot extraction with 3 attempts at both a solitaire retrieval devices which allowed for reconstitution of flow into the middle cerebral territory but revealed the underlying left M1 stenosis. Over time, clot was again forming in this region. [facility]-[id number] Procedure Note [facility], Radiology Results Incoming - 07/26/2017 6:39 PM CDT Clinical History: 66-year-old male who was undergoing a right hip replacement this morning with right hemiparesthesias and noninvasive imaging suggesting clot in the left middle cerebral artery. Technique: Written informed consent was obtained from the . Conscious sedation was provided by anesthesiology. Utilizing a right femoral percutaneous approach, following procedures were performed. Left common carotid injection, cervical evaluation in biplane projection. Left internal carotid injection, cerebral examination in biplane projection. Selective microcatheter injection into the left middle cerebral artery Successful clot extraction from the left M1 segment. Post clot extraction left internal carotid injection, cerebral examination in biplane projection. Intra-arterial nicardipine administration through a microcatheter Right common carotid injection, cervical evaluation in biplane projection. Right common carotid injection, cerebral examination in biplane projection. Left vertebral injection, cerebral examination in biplane projection. Right vertebral injection, cerebral examination in biplane projection. Right common femoral arteriogram in frontal projection. KA R 4693 mGy Findings: Left common carotid injection, cervical evaluation shows a normal bifurcation at the level of C3. There is no stenosis of the internal carotid artery. Left internal carotid injection, cerebral examination shows occlusion of the left M1 segment with some attempted collaterals. There is antegrade flow into both anterior cerebral arteries. The cortical veins, dural sinuses and deep venous system are normal. Atherosclerotic changes are noted in both anterior cerebral artery branches. With a guiding catheter in the left internal carotid artery, a velocity microcatheter with an Richie catheter was successful in crossing the M1 segment. The first attempted clot extraction with a Solitaire did get a small amount of clot out of the M1 but there remains thrombus. A second velocity microcatheter was maneuvered into the middle cerebral artery. Selective microcatheter injection shows there is no extravasation and there is flow in the posterior division of the middle cerebral artery. A Trevo retrieval device was then placed for 5 minutes with extraction under suction. This was successful at opening some of the posterior division of the middle cerebral artery but visible clot remains in the M1 segment. A third pass was made with a velocity microcatheter and a catalyst catheter. Selective microcatheter injection shows flow in the anterior division of the middle cerebral artery. With removal of the Trevo retrieval device under suction , additional clot was retrieved. Initial posttreatment left internal carotid injection shows protestant of flow into the middle cerebral artery and underlying stenosis of the M1 segment. Over the period of 10 minutes, there appeared to be either vasospasm or new clot. A microcatheter was maneuvered into the M1 segment where 5 mg of nicardipine was given as a slow bolus. Left internal carotid injection shows some antegrade flow into the posterior division but no flow in the anterior division of the middle cerebral artery. Right common carotid injection, cervical evaluation documents 60% stenosis of the internal carotid artery by NASCET criteria. Right common carotid injection, cerebral evaluation shows greater than 50-60% stenosis of the right M1 segment. There is antegrade flow into the right middle cerebral territory. The right A1 segment is small but there remains antegrade flow into the anterior cerebral territory. Atherosclerotic changes are noted in multiple middle cerebral branches. Left vertebral injection shows that the left vertebral artery Terminates in the posterior inferior cerebellar artery and is occluded beyond this level. Right vertebral injection, cerebral examination demonstrates antegrade flow to the basilar artery and posterior circulation. There are no branch occlusions. The cortical veins, dural sinuses and deep venous system are normal. Right common femoral arteriogram demonstrates a normal common femoral, superficial femoral and profunda arteries. There were no immediate complications. The femoral sheath was removed and hemostasis was maintained by manual compression and Angio-Seal Impression: Initially the left M1 segment was occluded. There was successful clot extraction with 3 attempts at both a solitaire retrieval devices which allowed for reconstitution of flow into the middle cerebral territory but revealed the underlying left M1 stenosis. Over time, clot was again forming in this region. [facility]-[id number] * CT Stroke Brain Wo Contrast (07/26/2017 1:19 PM) Specimen Performing Laboratory [facility] [address] [place] [address] Narrative EXAMINATION: CT STROKE BRAIN WO CONTRAST CLINICAL HISTORY: stroke COMPARISON:CTA brain dated July 26, 2017 TECHNIQUE: Noncontrast enhanced images of the brain were obtained from the skull base to the vertex. Both soft tissue and bone reconstruction algorithms were performed.CT imaging was performed with iterative reconstruction technique and/or automated exposure control to reduce radiation dose. FINDINGS: The brain parenchyma has no acute lesion. The sears-white matter differentiation is preserved. No evidence of acute intra or extra-axial hemorrhage, mass, mass effect or acute territorial infarction. There is no acute hydrocephalus. Basal cisterns are patent. Note is made of hyperdensity in the left middle cerebral artery in the M1-M2 distribution. His correlates to filling defect on CTA brain consistent with acute thrombus. There are involutional changes with lucencies in the white matter from chronic small vessel disease. No definite significant MCA cortical ischemic insult identified at this time. There is some lucency in the subinsular regions, left greater than right No acute soft tissue hematoma or laceration. There is some mucosal thickening in the sinuses as well as a retention cyst in the inferior right maxillary sinus. Calvarium is intact. 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 No hemorrhage or significant ischemia identified at this time. The findings were ready known at time of scanning patient is receiving endovascular treatment with endovascular neuroradiologist at time of dictation. [facility]-[id number] Procedure Note Interface, Radiology Results Incoming - 07/26/2017 1:38 PM CDT EXAMINATION: CT STROKE BRAIN WO CONTRAST CLINICAL HISTORY: stroke COMPARISON: CTA brain dated July 26, 2017 TECHNIQUE: Noncontrast enhanced images of the brain were obtained from the skull base to the vertex. Both soft tissue and bone reconstruction algorithms were performed. CT imaging was performed with iterative reconstruction technique and/or automated exposure control to reduce radiation dose. FINDINGS: The brain parenchyma has no acute lesion. The sears-white matter differentiation is preserved. No evidence of acute intra or extra-axial hemorrhage, mass, mass effect or acute territorial infarction. There is no acute hydrocephalus. Basal cisterns are patent. Note is made of hyperdensity in the left middle cerebral artery in the M1-M2 distribution. His correlates to filling defect on CTA brain consistent with acute thrombus. There are involutional changes with lucencies in the white matter from chronic small vessel disease. No definite significant MCA cortical ischemic insult identified at this time. There is some lucency in the subinsular regions, left greater than right No acute soft tissue hematoma or laceration. There is some mucosal thickening in the sinuses as well as a retention cyst in the inferior right maxillary sinus. Calvarium is intact. 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 No hemorrhage or significant ischemia identified at this time. The findings were ready known at time of scanning patient is receiving endovascular treatment with endovascular neuroradiologist at time of dictation. [facility]-[id number] * CTA Neck W Wo Contrast (07/26/2017 1:18 PM) Specimen Performing Laboratory [facility] [address] [place] [address] Narrative EXAMINATION:CT ANGIOGRAM NECK W WO CONTRAST INCLUDING 3-D MIP RECONSTRUCTED IMAGING. CT IMAGING WAS PERFORMED WITH ITERATIVE RECONSTRUCTION TECHNIQUE AND/OR AUTOMATED EXPOSURE CONTROL TO REDUCE RADIATION DOSE. CLINICAL HISTORY:stroke COMPARISON:None. FINDINGS: 1. There is no significant abnormality demonstrated in the brachiocephalic vasculature. 2.There is mild fibrocalcific atherosclerotic plaque formation at the common carotid artery bifurcations with approximate 40% stenosis (3 mm) by NASCET criteria in the carotid bulb on the right side. There is no stenosis on the left side. 3.There is a dominant prominent right vertebral artery with hypoplastic left vertebral artery. There is no significant abnormality demonstrated in the cervical vertebral arteries. IMPRESSION: Approximately 40% stenosis by NASCET criteria in the carotid bulb on the right. Otherwise no vessel stenosis demonstrated. [facility]-[id number] Procedure Note Interface, Radiology Results Incoming - 07/26/2017 1:35 PM CDT EXAMINATION: CT ANGIOGRAM NECK W WO CONTRAST INCLUDING 3-D MIP RECONSTRUCTED IMAGING. CT IMAGING WAS PERFORMED WITH ITERATIVE RECONSTRUCTION TECHNIQUE AND/OR AUTOMATED EXPOSURE CONTROL TO REDUCE RADIATION DOSE. CLINICAL HISTORY: stroke COMPARISON: None. FINDINGS: 1. There is no significant abnormality demonstrated in the brachiocephalic vasculature. 2. There is mild fibrocalcific atherosclerotic plaque formation at the common carotid artery bifurcations with approximate 40% stenosis (3 mm) by NASCET criteria in the carotid bulb on the right side. There is no stenosis on the left side. 3. There is a dominant prominent right vertebral artery with hypoplastic left vertebral artery. There is no significant abnormality demonstrated in the cervical vertebral arteries. IMPRESSION: Approximately 40% stenosis by NASCET criteria in the carotid bulb on the right. Otherwise no vessel stenosis demonstrated. [id number] * CTA Head W Wo Contrast (07/26/2017 1:16 PM) Specimen Performing Laboratory [facility] [address] [place] [address] Narrative EXAMINATION: CT ANGIOGRAM HEAD W WO CONTRAST CLINICAL HISTORY: stroke COMPARISON:CT head same day TECHNIQUE:Imaging of the intracranial circulation was obtained from the skull base to the vertex during the arterial phase of enhancement. Postprocessing was performed with MIP multiplanar and 3D reconstructed images. CT imaging was performed with iterative reconstruction technique and/or automated exposure control to reduce radiation dose. FINDINGS: Right dominant vertebral artery. Calcified atherosclerosis of the right intracranial vertebral artery without focal narrowing. Diminished flow in the distal left vertebral artery V4 segment which may be secondary to atherosclerosis. Posterior communicating arteries are patent. No focal stenosis of the basilar or posterior cerebral arteries. No focal stenosis of the right middle cerebral artery. Diminutive right anterior cerebral artery A1 segment with the A2 segment and beyond supplied predominantly by the anterior communicating artery. There is severe stenosis/occlusion of the left middle cerebral artery M1 segment with reduced flow in the M2 segments and beyond on the left IMPRESSION: 1. Findings compatible with thrombus in the left middle cerebral artery M1 segment with diminished flow in the left M2 segments and beyond. 2. Diminished flow in the left vertebral artery V4 segment, suspected to be secondary to atherosclerosis as opposed to thrombus, however recommend correlation for posterior circulation infarct symptoms. Dr. Mcguire is performing intervention for the thrombus at time of dictation at 1330 hours on 07/26/2017. [facility]-[id number] Procedure Note Interface, Radiology Results Incoming - 07/26/2017 1:34 PM CDT EXAMINATION: CT ANGIOGRAM HEAD W WO CONTRAST CLINICAL HISTORY: stroke COMPARISON: CT head same day TECHNIQUE: Imaging of the intracranial circulation was obtained from the skull base to the vertex during the arterial phase of enhancement. Postprocessing was performed with MIP multiplanar and 3D reconstructed images. CT imaging was performed with iterative reconstruction technique and/or automated exposure control to reduce radiation dose. FINDINGS: Right dominant vertebral artery. Calcified atherosclerosis of the right intracranial vertebral artery without focal narrowing. Diminished flow in the distal left vertebral artery V4 segment which may be secondary to atherosclerosis. Posterior communicating arteries are patent. No focal stenosis of the basilar or posterior cerebral arteries. No focal stenosis of the right middle cerebral artery. Diminutive right anterior cerebral artery A1 segment with the A2 segment and beyond supplied predominantly by the anterior communicating artery. There is severe stenosis/occlusion of the left middle cerebral artery M1 segment with reduced flow in the M2 segments and beyond on the left IMPRESSION: 1. Findings compatible with thrombus in the left middle cerebral artery M1 segment with diminished flow in the left M2 segments and beyond. 2. Diminished flow in the left vertebral artery V4 segment, suspected to be secondary to atherosclerosis as opposed to thrombus, however recommend correlation for posterior circulation infarct symptoms. Dr. Mcguire is performing intervention for the thrombus at time of dictation at 1330 hours on 07/26/2017. [facility]-[id number] * Thyroid stimulating hormone (07/26/2017 12:53 PM) Component Value Ref Range TSH 0.75 0.27 - 4.20 uIU/mL Specimen Performing Laboratory Plasma specimen [facility] DEPARTMENT OF PATHOLOGY AND GENOMIC MEDICINE [address] [place] [address] * T4, free (07/26/2017 12:53 PM) Component Value Ref Range T4, free 1.1 0.9 - 1.7 ng/dL Specimen Performing Laboratory Plasma specimen [facility] DEPARTMENT OF PATHOLOGY AND GENOMIC MEDICINE [address] [place] [phone] * Lipid panel (07/26/2017 12:53 PM) Component Value Ref Range Cholesterol 202 (H) <200 mg/dL Triglycerides 81 <150 mg/dL HDL cholesterol 99 >40 mg/dL LDL cholesterol 103 (H)Comment: Result obtained by direct LDL <100 mg/dL measurement Lipid panel SeeBelow interpretation Comment: Total Cholesterol (mg/dL) <200 Desirable 200-239 Borderline-high >=240 High Triglycerides (mg/dL) <150 Normal 150-199 Borderline-high 200-499 High >=500 Very high HDL Cholesterol (mg/dL) <40 Low (male) <40 Low (female) LDL Cholesterol (mg/dL) <100 Optimal 100-129 Near or above optimal 130-159 Borderline-high 160-189 High >=190 Very high Risk Catergories that modify LDL goals. Risk Catergories LDL goal (mg/dL) CHD and CHD risk equivalent <100 (10-year risk >20%) Multiple (2+) risk factors <130 (10-year risk=<20%) 0-1 risk factors <160 (<10-year risk) Defining levels of lipids in metabolic syndrome Triglycerides >=150 mg/dL HDL Cholesterol Men <40 mg/dL Women <40 mg/dL Non-HDL cholesterol is a second target for therapy in persons with high triglycerides (>=200 mg/dL) Specimen Performing Laboratory Plasma specimen [facility] DEPARTMENT OF PATHOLOGY AND [facility] MEDICINE [address] [place] [address] * Syphilis treponemal IgG (07/26/2017 12:21 PM) Component Value Ref Range Syphilis treponemal IgG Non-reactiveComment: Non-reactive: No serological Non-reactive evidence of Syphilis infection Specimen Performing Laboratory Serum [facility] [place] [address] * HIV 1, 2 antibody (07/26/2017 12:21 PM) Component Value Ref Range HIV 1, 2 antibody Non-reactive Non-reactive Comment: Starting from January 06 2016, 4th generation HIV screening and confirmation assays are in use at [facility], consistent with the CDC-recommended algorithm. The screening test detects antibodies to HIV-1, HIV-2 and the p24 antigen. Positive screening results will be automatically reflexed to a HIV-1/HIV-2 differentiation assay. Indeterminant HIV-1 results will be further automatically reflexed to a nucleic acid test for detection of acute infection. Western blot will no longer be performed as a confirmation test. For a quick reference guide on the testing algorithm, please refer to: http://stacks.cdc.gov/view/cdc/05266. Specimen Performing Laboratory Blood [facility] DEPARTMENT OF PATHOLOGY AND GENOMIC MEDICINE [address] [place] [id number] * Folate level (07/26/2017 12:21 PM) Component Value Ref Range Folate 10.1 4.8 - 24.2 ng/mL Specimen Performing Laboratory Serum [facility] [address] [place] [id number] * Vitamin B12 level (07/26/2017 12:21 PM) Component Value Ref Range Vitamin B12 329 211 - 946 pg/mL Comment: Significant overlap exists between normal and deficiency states. However, most patients with deficiencies will have Serum B12 <200 pg/mL. Specimen Performing Laboratory Serum [facility] DEPARTMENT OF PATHOLOGY AND GENOMIC MEDICINE [address] [place] [address] * XR Pelvis 1 Or 2 Vw (07/26/2017 9:29 AM) Only the most recent of 3 results within the time period is included. Specimen Performing Laboratory [facility] [address] [place] [id number] Narrative EXAMINATION:XR PELVIS 1 OR 2 VW CLINICAL HISTORY: COMPARISON:March 08, 2017 IMPRESSION: 1.This intraoperative radiograph during placement of a right hip are ceases. Acetabular component is in position.Femoral device is placed but not yet cemented.Alignment appears satisfactory with no evidence of fracture. There is pre-existing intact left hip prosthesis. Procedure Note Interface, Radiology Results Incoming - 07/26/2017 9:39 AM CDT EXAMINATION: XR PELVIS 1 OR 2 VW CLINICAL HISTORY: COMPARISON: March 08, 2017 IMPRESSION: 1. This intraoperative radiograph during placement of a right hip are ceases. Acetabular component is in position. Femoral device is placed but not yet cemented. Alignment appears satisfactory with no evidence of fracture. There is pre-existing intact left hip prosthesis. * MRSA screen culture (02/17/2017 3:15 PM) Component Value Ref Range MRSA screen culture No Methicillin Resistant Staphylococcus aureus isolate isolated. Comment: Specimen Information Specimen Source: Nares Specimen Site: Not specified Specimen Performing Laboratory Nares - Not specified [facility] DEPARTMENT OF PATHOLOGY AND GENOMIC MEDICINE [address] [place] [id number] after 12/09/2016 Insurance Payer Benefit Subscriber ID Type Phone Address Plan / Group MEDICARE MEDICARE xxxxxxxxxx Medicare [place], [place] PART A AND B [employer] xxxxxxxxxx [employer] [facility]
--- OUTSIDE RECORDS SUMMARY | 2017-12-10 17:44 | XMS REPORT | Clinical Summary ---
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 Disp. Refills Start End Date Status Date amLODIPine (NORVASC) 10 Take 10 mg by mouth Active MG tablet daily. aspirin 81 MG EC tablet Take 81 mg by mouth Active daily. atorvastatin (LIPITOR) 20 Take 20 mg by mouth Active MG tablet daily. furosemide (LASIX) 20 MG Take 20 mg by mouth daily Active tablet . gabapentin (NEURONTIN) Take 600 mg by mouth 3 Active 600 MG tablet (three) times daily. hydrochlorothiazide Take 25 mg by mouth Active (HYDRODIURIL) 25 MG daily. tablet HYDROcodone-acetaminophen Take 1 tablet by mouth Active (NORCO) 10-325 mg per every 6 (six) hours as tablet needed for Pain. lisinopril Take 20 mg by mouth Active (PRINIVIL,ZESTRIL) 20 MG daily. tablet metFORMIN (GLUCOPHAGE) Take 1,000 mg by mouth 2 Active 1000 MG tablet (two) times daily with breakfast and dinner. omeprazole (PRILOSEC) 20 Take 20 mg by mouth Active MG capsule daily. tamsulosin (FLOMAX) 0.4 Take 0.4 mg by mouth Active mg Cp24 24 hr capsule daily. baicalin-catechin Take by mouth 2 (two) Active (LIMBREL) 500 mg Cap times daily. prasugrel (EFFIENT) 10 mg Take 1 tablet (10 mg 60 tablet 3 09/10/20 Active Tab tablet total) by mouth daily. 16 metoprolol (TOPROL-XL) 25 Take 0.5 tablets (12.5 mg 180 tablet 0 09/0909/09/20 MG 24 hr tablet total) by mouth nightly. 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 Device Expiration Model / Identifier Date Serial / Lot Device Clsr Angio-Seal Vip 6fr Cardiovasc Right: [employer]AN 06/09/2017 [id number] / [id number] - [id number] Leiva MED:CARDIAC / Implanted: Qty: 1 on 09/08/2016 by [id number] Charles Beyer MD Synergy Stents-Cor Right: [place] 06/04/2017 [id number] Implanted: Qty: 1 on 09/08/2016 by onPryv Coronary SCIENTIFIC 6300 / Charles Beyer MD / [id number] Resolute Intergrity [employer] 07/02/2015 [id number] Implanted: Qty: 1 on 11/13/2014 by Colleen / Charles Beyer MD / [id number] Resolute Vintergrity 12/07/2015 [id number] Implanted: Qty: 1 on 11/13/2014 by Charles Wyatt MD / [id number] Angioseal [employer] 04/08/2015 [id number] / Implanted: Qty: 1 on 11/13/2014 by LAWANDA / Charles Beyer MD [id number] Results Not on fileafter 12/09/2016
--- NOTE | 2017-12-10 20:23 | Diagnostic Imaging Report ---
EXAM: WRIST COMPLETE RIGHT, HAND 3+ VIEWS RIGHT, FOREARM RIGHT 2 VIEW, AP, lateral and oblique INDICATION: Fall, right arm pain COMPARISON: None FINDINGS: BONES: No acute fractures. JOINTS: Degenerative changes of the hand and wrist predominantly the first metacarpal carpal joint. SOFT TISSUES: Regional vascular calcifications. Nonspecific 4 mm radiopaque foreign body projects over the proximal ulna. IMPRESSION: No evidence of a right forearm, wrist or hand fracture. Signed by: Dr. Laurie Burkett M.D. on 12/10/2017 8:20 PM
--- NOTE | 2017-12-10 20:37 | Diagnostic Imaging Report ---
EXAMINATION: Head CT without contrast. HISTORY:Fall. COMPARISON:None. TECHNIQUE: Multidetector axial images were obtained from the foramen magnum to the vertex without contrast. The images were reconstructed using brain and bone algorithms. Thin section brain images were reformatted into coronal and sagittal planes. Intravenous contrast: None IMAGE QUALITY: Suboptimal evaluation of skull base and posterior fossa structures due to streak artifacts. FINDINGS: Skull/scalp: No lytic or blastic. lesions. No surgical changes. Parenchyma: Large area of cortical-based hypodensity that extends in the posterior aspect of left frontal lobe and left parietal lobe into the centrum semiovale while he, melgoza radiata, subinsular region, lateral aspect of lentiform nucleus and superior aspect of the temporal lobe represents age indeterminate vascular insult in the MCA territory. Multifocal left hemispheric gyriform linear hyperdensity possibly represent laminar necrosis vs hemorrhagic transformation. Focal hypodensity in the left cerebral peduncle possibly represents Wallerian degeneration versus an age indeterminate lacunar infarct. Focal cortical-based hypodensity in the left occipital lobe with regional volume loss represents chronic encephalomalacia from prior vascular insult in [employer] territory Age indeterminate lacunar infarct in left lentiform nucleus. No midline shift or brain herniation. Arteries: Atherosclerotic calcification in bilateral carotid siphon and V4 segment of right vertebral artery. Dural sinuses: No abnormal density suggestive of thrombosis. Ventricles: Subtle curvilinear hyperdensity in the dependent portion of left occipital horn (best seen in image 39, series 900) may represent trace intraventricular hemorrhage. Extra-axial spaces: No abnormal density. Brain volume: Mild generalized cerebral volume loss. Craniocervical junction: No mass, Chiari malformation, or basilar invagination. Sella: No mass. Paranasal/mastoid sinuses: Large polyp/retention cyst in right maxillary sinus. IMPRESSION: 1. Age indeterminate, possible evolving subacute or chronic left frontal temporoparietal vascular insult in MCA territory with associated laminar necrosis vs hemorrhagic transformation. Possibility of acute on chronic vascular insult is not excluded. Consider further evaluation with MRI of the brain. 2. 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 Wallerian degeneration vs age indeterminate lacunar infarct in left cerebral peduncle of the midbrain. 3. 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 4. Questionable trace intraventricular hemorrhage in left occipital horn. 5. Mild generalized cerebral volume loss. Signed by: Dr. Sunitha Tariq M.D. on 12/10/2017 8:33 PM
--- NOTE | 2017-12-10 20:48 | Diagnostic Imaging Report ---
History: Fall. Comparison studies: None Technique: Axial images were obtained through the cervical region.. Coronal and sagittal images reconstructed from the axial data.. Intravenous contrast: None Findings: Fractures: No acute fracture. Soft tissue injuries: None. Atlantoaxial articulation: Intact. Alignment: Loss of normal cervical lordosis is either positional or due to muscle spasm. No scoliosis. Cervicomedullary junction: No abnormalities. The foramen magnum is patent. Soft tissues: Atherosclerotic calcification in bilateral carotid bulb. Vertebrae: Chronic fracture deformity in the right transverse process of T1, tip of C7 spinous process. Expected postoperative changes from prior anterior cervical spine fusion at level C4-C5 with osseous bridging. The metallic hardware is intact. Suboptimal evaluation at this level due to metallic streak artifacts. No acute fractures, infection or neoplasm. Degenerative changes: C2-C3: Moderate right foraminal stenosis due to facet and uncovertebral arthrosis. C3-C4: Moderate right foraminal stenosis due to facet and uncovertebral arthrosis. C4-C5: Moderate bilateral foraminal stenosis due to facet and uncovertebral arthrosis C5-C6: Moderate right foraminal stenosis due to facet and uncovertebral arthrosis. IMPRESSION: 1. No acute cervical spine fracture. Loss of normal cervical lordosis is either positional or due to muscle spasm. 2. Ligament, spinal cord and or vascular abnormalities cannot be excluded on the basis of this examination. 3. Cervical spondylosis as above. 4. Expected postoperative changes from prior anterior cervical spine fusion at level C4-C5. Signed by: Dr. Sunitha Tariq M.D. on 12/10/2017 8:44 PM
== END 2017-12-10 21:58 | disposition home or self-care (01) ==
LOC: ER 17:40
DX: S50.11XA Contusion of right forearm, initial encounter (principal); S60.211A Contusion of right wrist, initial encounter; W05.0XXA Fall from non-moving wheelchair, initial encounter; Y92.008 Other place in unspecified non-institutional (private) residence as the place of occurrence of the external cause; I10 Essential (primary) hypertension; E11.9 Type 2 diabetes mellitus without complications; I51.9 Heart disease, unspecified; G98.8 Other disorders of nervous system
CPT/HCPCS: 70450; 72125; 99284

== ENCOUNTER 2018-01-04 12:37 | Emergency (ER) | payer MEDICARE, OTHER ==
[~2018-01-04] VITALS: Ht 172.7 cm; Wt 78.9 kg
--- OUTSIDE RECORDS SUMMARY | 2018-01-04 12:40 | XMS REPORT | Clinical Summary ---
Author Author [facility] Organization [facility] Address Unknown Phone Unavailable Care Team Providers Care Cardiac Technologist Name Role Phone Asked, Pcp PCP Unavailable [...] Overview: Added automatically from request for surgery [id number] Osteoarthritis of left hip 03/08/2017 Encounters Date [...] primary osteoarthritis, left hip (Primary Dx) after 01/03/2017 Immunizations Name Dates Previously Given Next Due [...] PNEUMOCOCCAL-13 Completed 03/09/2017 Implants Implanted Type Area Contact Center Director Device Expiration Model / Identifier Date Serial / Lot Device Vasclr Clsr Vasoactive Cardiovasc N/A: N/A 05/09/2018 [id number] / Intstnl Peptd 6fr Angio-Seal - ular / [id number] Implants [id number] Implanted: 07/26/2017 (Quantity not on file) Device Vasclr Clsr Vasoactive Cardiovasc N/A: N/A 12/07/2017 [id number] / Intstnl Peptd 8fr Angio-Seal - ular / [id number] Implants [id number] Implanted: 07/26/2017 (Quantity not on file) Head Fml Sld Modlr Co-Cr 40x-6mm Hip Joint Left: Hip [employer]ET INC 08/10 [id number] / Q3d-Xlllde - [id number] Implants / Implanted: Qty: 1 on 03/08/2017 by [id number] Hilario Mathis MD G7 Osseoti 4 Hole Shell 56mm F - IPM Left: Hip [employer]OMET, INC 2025 [id number] IMPLANT / Implanted: Qty: 1 on 03/08/2017 by DEVICES / Hilario Mathis MD [id number] Liner G7 Neutral Arcomxl G40 - IPM Left: Hip [employer]OMET, INC 07/10/2021 [id number] IMPLANT / Implanted: Qty: 1 on 03/08/2017 by DEVICES / Hilario Mathis MD [id number] Tprlc 133 Type1 Pps So 10.0 IPM Left: Hip [employer], INC 01/08/2027 [id number] Taperloc Complete Stem - [id number] IMPLANT / Implanted: Qty: 1 on 03/08/2017 by TONIO / Hilario Mathis MD [id number] GLuiz Osseoti Ltd Hole Shell 54mm - IPM Right: Hip [employer], INC 2026 [id number] IMPLANT / Implanted: Qty: 1 on 07/26/2017 by TONIO / Hilario Mathis MD [id number] G7 Neutral E1 Liner 40mm F - IPM Right: Hip [employer] INC 01/22/2022 [id number] IMPLANT / Implanted: Qty: 1 on 07/26/2017 by TONIO / Hilario Mathis MD [id number] Tprlc 133 Fp Type1 Pps So 8.0, IPM Right: Hip [employer] INC 04/09/2027 [id number] Taperloc Complete Stem - [id number] IMPLANT / Implanted: Qty: 1 on 07/26/2017 by DEVICES / Hilario Mathis MD [id number] Head Feml Ceramc Type 1 Taperd Orthopedic Right: Hip CrushpathET INC 03/10 650 1058 / Option 40mm Biolox Delta - Trauma / [id number] Implants [id number] Implanted: Qty: 1 on 07/26/2017 by Hilario Mathis MD Catheter [id number] Reperfusion High Surgical N/A: N/A [employer] INC [id number] Flow Tubing 6.0f 132cm - [id number] Implants; KIT / Implanted: 07/26/2017 (Quantity not Expanders; / on file) Extenders; Surgical Wires Device Revasclrzn Flow Rstrtn Surgical N/A: N/A EV3 INC SFR3 4 20 20x4mm Solitaire - [id number] Implants; 10 / Implanted: 07/26/2017 (Quantity not Expanders; / on file) Extenders; Surgical Wires Neuron Select 5f [address] [place] - Surgical N/A: N/A Historic FuturesUMBRA INC [id number] Implants; R / Implanted: 07/26/2017 (Quantity not [...] CDT procedure are in the COLOR DOPPLER (02127) results section. INTUBATION Routine 07/26/2017 Localized osteoarthrosis Results for this 11:59 PM CDT of left hip procedure are in the Cerebrovascular accident results section. 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 artery ARTHROPLASTY, HIP, TOTAL 07/26/2017 Localized osteoarthrosis 8:15 AM CDT of left hip Special Needs GRANT BIOMET TN AN SPINAL BLOCK Routine 07/26/2017 PROCEDURE FOR [...] complicati ons and patient tolerated procedure well TN AN SPINAL BLOCK Routine 07/26/2017 POST-OP PAIN [...] complicati ons and patient tolerated procedure well TN AN ELECTIVE Routine 03/08/2017 ENDOTRACHEAL AIRWAY 8:17 [...] 1 Easy atraumatic intubation . Dentition unchanged TN AN SPINAL BLOCK Routine 03/08/2017 PROCEDURE FOR [...] RPM- 22ga quincke-3. 5", pt tolerated well TN AN SPINAL BLOCK Routine 03/08/2017 POST-OP PAIN [...] BIOMET GRANT Special Needs BIOMET GRANT after 01/03/2017 Results * POC glucose (08/09/2017 3:49 PM) Only the most recent of 92 results within the time period is included. Component Value Ref Range POC glucose 182 (H) 65 - 99 mg/dL Comment: [facility] Notified RN Meter ID: [id number] Net Applications Developer: Suzan Gayle Specimen Performing Laboratory [facility] DEPARTMENT OF PATHOLOGY AND GENOMIC MEDICINE [address] [place] [address] * XR Hip 2-3 View Left (08/09/2017 11:28 AM) Specimen Performing Laboratory [facility] [address] [place] [address] Narrative EXAMINATION:XR HIP 2-3 VIEWS LEFT CLINICAL HISTORY:Post Op, post op evaluation prior to transfer to facility COMPARISON:None. IMPRESSION: Left total hip arthroplasty is in place. There is no evidence of hardware fracture or dislocation. [facility]-[id number] Procedure Note Interface, Radiology Results Incoming - 08/09/2017 11:42 AM CDT EXAMINATION: XR HIP 2-3 VIEWS LEFT CLINICAL HISTORY: Post Op, post op evaluation prior to transfer to facility COMPARISON: None. IMPRESSION: Left total hip arthroplasty is in place. There is no evidence of hardware fracture or dislocation. [facility]-[id number] * XR Chest 1 Vw Portable (08/09/2017 5:01 AM) Only the most recent of 15 results within the time period is included. Specimen Performing Laboratory [facility] [address] [place] [address] Narrative EXAMINATION:XR CHEST 1 VW PORTABLE CLINICAL HISTORY: Ventilator Patient COMPARISON:08/08/2017 IMPRESSION: Support lines and tubes remain in stable position. Cardiomediastinal silhouette is stable. Pulmonary vasculature is top normal.No focal infiltrate, effusion or pneumothorax seen. [facility]-[id number] Procedure Note Hm Interface, Radiology Results Incoming - 08/09/2017 6:13 AM CDT EXAMINATION: XR CHEST 1 VW PORTABLE CLINICAL HISTORY: Ventilator Patient COMPARISON: 08/08/2017 IMPRESSION: Support lines and tubes remain in stable position. Cardiomediastinal silhouette is stable. Pulmonary vasculature is top normal. No focal infiltrate, effusion or pneumothorax seen. [facility]-[id number] * Ionized calcium, arterial (08/09/2017 4:15 AM) Only the most recent of 14 results within the time period is included. Component Value Ref Range Ionized calcium, arterial 1.21 1.11 - 1.32 mmol/L Specimen Performing Laboratory Blood [facility] DEPARTMENT OF PATHOLOGY AND GENOMIC MEDICINE [address] [place] [address] * CBC hemogram (08/09/2017 4:15 AM) Only [...] 0.00 /100 WBC Specimen Performing Laboratory Blood [facility] DEPARTMENT OF PATHOLOGY AND GENOMIC MEDICINE [address] [place] [address] * Arterial blood gas (08/09/2017 4:15 AM) [...] [facility] DEPARTMENT OF PATHOLOGY AND GENOMIC MEDICINE [address] [place] [address] * Estimated GFR (08/09/2017 4:00 AM) Only [...] and Americans. Specimen Performing Laboratory Plasma specimen [facility] OF PATHOLOGY AND [address] [address] * Phosphorus level (08/09/2017 4:00 AM) Only the most recent of 17 results within the time period is included. Component Value Ref Range Phosphorus 3.3 2.4 - 4.5 mg/dL Specimen Performing Laboratory Plasma specimen [facility] PATHOLOGY AND [address] [address] * Magnesium level (08/09/2017 4:00 AM) Only the most recent of 18 results within the time period is included. Component Value Ref Range Magnesium 2.7 (H) 1.6 - 2.4 mg/dL Specimen Performing Laboratory Plasma specimen [facility] DEPARTMENT OF PATHOLOGY AND [facility] MEDICINE [address] [place] [address] * Basic metabolic panel (08/09/2017 4:00 AM) [...] 10.2 mg/dL Specimen Performing Laboratory Plasma specimen [facility] DEPARTMENT OF PATHOLOGY AND GENOMIC MEDICINE [address] [place] [address] * ECG 12 lead (08/08/2017 12:05 PM) Only the most recent of 3 results within the time period is included. Component Value Ref Range Ventricular rate 66 Atrial rate 66 TN interval 134 QRSD interval 90 QT interval 402 QTC interval 421 P axis 1 39 QRS axis 1 -64 T wave axis 64 EKG impression Normal sinus rhythm-Left anterior fascicular block-Anteroseptal infarct , age undetermined-Possible lateral infarct as cited before-Abnormal ECG-In automated comparison with ECG of 29-JUL-2017 16:56,-Anteroseptal infarct is now present-Questionable change in initial forces of Anterior leads- Specimen Performing Laboratory [facility] MUSE [address] [place] [address] * Potassium level (08/07/2017 6:05 PM) Only the most recent of 3 results within the time period is included. Component Value Ref Range Potassium 4.0 3.5 - 5.0 mEq/L Specimen Performing Laboratory Plasma specimen [facility] DEPARTMENT OF PATHOLOGY AND GENOMIC MEDICINE [address] [place] [address] * CT Head Wo Contrast (08/07/2017 4:01 AM) Only the most recent of 5 results within the time period is included. Specimen Performing Laboratory [facility] [address] [place] [address] Narrative EXAMINATION:CT HEAD WO CONTRAST COMPARISON:06 August [...] unchanged in size. IMPRESSION: No interval change. [facility]-[id number] Procedure Note Interface, Radiology Results Incoming - [...] unchanged in size. IMPRESSION: No interval change. [facility]-[id number] * Partial thromboplastin time, activated (08/07/2017 2:40 AM) Only the most recent of 10 results within the time period is included. Component Value Ref Range PTT 35.6 23.0 - 36.0 sec Comment: PTT therapeutic range for unfractionated heparin is 61.0-112.0 seconds which corresponds to Anti-Xa 0.3-0.7 U/ml. Specimen Performing Laboratory Blood [facility] DEPARTMENT OF PATHOLOGY AND Locately MEDICINE [address] [place] [address], [place] [address] * Comprehensive metabolic panel (08/06/2017 1:52 AM) [...] 6.0 (L) 6.3 - 8.3 g/dL Comment: [place] 4.6-7.0 g/dL 1 week 4.4-7.6 g/dL 7 [...] 1.2 mg/dL Specimen Performing Laboratory Plasma specimen [facility] DEPARTMENT OF PATHOLOGY AND Locately MEDICINE [address] [place] [address] * CBC with platelet and differential (08/06/2017 [...] (promyelocytes, myelocytes, metamyelocytes) Specimen Performing Laboratory Blood [facility] DEPARTMENT OF PATHOLOGY AND [facility] MEDICINE [address] [place] [address] * Vancomycin level, trough (08/04/2017 11:30 AM) Component Value Ref Range Vancomycin, trough 13.5 10.0 - 20.0 ug/mL Comment: Therapeutic Ranges: Peak 30.0 - 40.0 ug/mL Trough 10.0 - 20.0 ug/mL Specimen Performing Laboratory Serum [facility] DEPARTMENT OF PATHOLOGY AND [facility] MEDICINE [address] [place] [address] * XR Abdomen 1 Vw Portable (08/03/2017 6:48 PM) Only the most recent of 3 results within the time period is included. Specimen Performing Laboratory [address] [address] Narrative EXAMINATION:XR ABDOMEN 1 VW PORTABLE CLINICAL HISTORY:Check dobhoff placement COMPARISON:August 02, 2017 IMPRESSION: Dobbhoff tube terminates in the distal stomach level, similar to prior. Bowel gas pattern is nonobstructive. [facility]-[id number] Procedure Note Interface, Radiology Results Incoming - 08/03/2017 6:54 PM CDT EXAMINATION: XR ABDOMEN 1 VW PORTABLE CLINICAL HISTORY: Check dobhoff placement COMPARISON: August 02, 2017 IMPRESSION: Dobbhoff tube terminates in the distal stomach level, similar to prior. Bowel gas pattern is nonobstructive. [facility]-[id number] * Transfuse RBC (08/03/2017 4:26 PM) * XR Picc Chest Portable (08/03/2017 2:08 PM) Specimen Performing Laboratory [employer] [address] [place] [address] Narrative EXAMINATION:XR PICC CHEST PORTABLE CLINICAL HISTORY:PICC line position verification COMPARISON:August 03, 2017 0300 hours chest IMPRESSION: Interval placement left PICC line catheter. Catheter tip superior vena cava level of T7. Endotracheal tube feeding tube and right IJ catheter unchanged. No pneumothorax. Central vascular prominence is stable Cardiomediastinal silhouette remains normal size with mild vascular ectasia [facility]-[id number] Procedure Note Interface, Radiology Results Incoming - [...] remains normal size with mild vascular ectasia [facility]-[id number] * PICC INSERTION (08/03/2017 1:17 PM) Narrative Angel Blas 08/03/20171:17 PM PICC insertion Date/Time: 08/03/2017 1:17 PM Performed by: MANDY PROCTOR Authorized by: LEYDA HUBER V Consent: Consent obtained:Verbal Consent given by:Patient (PT. UNRESPONSIVE) [place] protocol: Relevant documents present and verified: yes [...] (Will create an LDA): Patient position:Flat Indication:Known mcc IV therapy Location:Left brachial Site selection rationale:LIMITEDRIGHT ARM MOVEMENT Device Type:Non-valved Catheter size:5 Fr Unsuccessful Attempt(s): Location(s) Attempted:Left basilic Problems or complications:Unable to access vein PICC Characteristics: Catheter Brand:LOOKCAST PICC External Catheter Length (cm):0 Internal Catheter Length (cm):43 Total Catheter Length (cm):43 Catheter Lot Number:[id number] Catheter Expiration Date:05/09/2019 Procedure Details: Landmarks identified: [...] Red Blood Cells -1, Leukored Unit number [id number] Product code [id number] Dispense status Transfused Blood expiration date 20170825 Blood type code 5100 Blood type O POSITIVE Product name Apheresis Red Cell AS3 #1 LR Unit number [id number] Product code [id number] Dispense status Transfused Blood expiration date 20170825 Blood type code 5100 Blood type O POSITIVE Specimen Performing Laboratory [facility] DEPARTMENT OF PATHOLOGY AND GENOMIC MEDICINE [address] [place] [address] * Type and screen (08/03/2017 10:15 AM) Only the most recent of 3 results within the time period is included. Component Value Ref Range ABO grouping O Rh type POS Antibody screen (gel) NEG Specimen Performing Laboratory Blood [facility] DEPARTMENT OF PATHOLOGY AND GENOMIC MEDICINE [address] [place] [address] * Insert arterial line (08/02/2017 11:35 PM) [...] Lingula Specimen Performing Laboratory Bronchial washing - [facility] DEPARTMENT OF PATHOLOGY AND GENOMIC MEDICINE [facility] [address] [place] [address] * Sputum culture (08/02/2017 3:08 PM) Only the most recent of 2 results within the time period is included. Component Value Ref Range Sputum culture isolate Normal oral aly isolated. Comment: Specimen Information Specimen Source: Sputum Specimen Site: Expectorated Specimen Performing Laboratory Sputum - Expectorated [facility] DEPARTMENT OF PATHOLOGY AND GENOMIC MEDICINE [address] [place] [address] * Gram stain (08/02/2017 3:08 PM) Only the most recent of 2 results within the time period is included. Component Value Ref Range Gram stain isolate Many WBC's No organisms seen Comment: Specimen Information Specimen Source: Sputum Specimen Site: Expectorated Specimen Performing Laboratory Sputum - Expectorated [facility] [place] [address] * Pv transcranial Doppler intracranial arteries emboli detect w inj (08/02/2017 2:30 PM) Specimen Performing Laboratory [facility] [address] [place] [address] Narrative Vascular Ultrasound Laboratory Transcranial Doppler Report (TCD) [address] [place] [address] Pat.Name:Patience AGUILAR.ID:[id number] .Date: 08/02/2017Refer.MD:HILARIO MATHIS MD Exam Time: 2:54:00 PMStudy Type:TCD DOBAge:1950,66YSex: MALE Sonogrphr: Gianni Mosher RDMS, RVTPat. Stat.:Inpatient Room:NICU 1TapeVol: , CPT - 4: 45803, 49082Ggnr Event ID:[id number] Order ID:[id number] Reason for Study:Acute pulmonary embolism and ischemic stroke (persistent occlusion of M1 segment of left MCA) s/p thrombectomy. History of left hip replacement, hypertension, type 2 diabetes, coronary arterial disease. Race:C SUMMARY: RIGHT LEFT Antegrade RetrogradeAntegrade Retrograde Ophthalmic Artery+ + RIGHT LEFT Normal Abnormal Not SeenNormal Abnormal Not Seen Siphon 7828 IUR247 + GIANCARLO ++ VACCINE SPECIALIST 6241 Basilar prox only+ Vertebral ++ TECHNIQUE [...] of the left vertebral artery. PHYSICIAN INTERPRETATION: 63852: Negative TCD bubble test. 84790: Mild stenosis in the right MCA.Suboptimal window on the left side. Both VA are antegrade. Signed 08/03/2017 07:31 AM Yousif Maurice MD, RPVI Procedure Note Interface, Radiology Results In - 08/03/2017 7:31 AM CDT Vascular Ultrasound Laboratory Transcranial Doppler Report (TCD) [address] [place] [address] Pat.Name: HILARIO AGUILAR Pat.ID: [id number] .Date: 08/02/2017 Refer.MD: HILARIO MATHIS MD Exam Time: 2:54:00 PM Study Type:TCD Age: 1 1950,66Y Sex: MALE Sonogrphr: Gianni Mosher RDMS, RADHAT Pat. Stat.:Inpatient Room: [facility] 1 Tape Vol: ST, CPT - 4: 20806, 52026 Echo Event ID:[id number] Order ID: [id number] Reason for Study:Acute pulmonary embolism and ischemic stroke (persistent occlusion of M1 segment of left MCA) s/p thrombectomy. History of left hip replacement, hypertension, type 2 diabetes, coronary arterial disease. Race: C SUMMARY: RIGHT LEFT Antegrade Retrograde Antegrade Retrograde Ophthalmic Artery + + RIGHT LEFT Normal Abnormal Not Seen Normal Abnormal Not Seen Siphon 78 28 MCA 105 + GIANCARLO + + VACCINE SPECIALIST 62 41 Basilar prox only + Vertebral [...] of the left vertebral artery. PHYSICIAN INTERPRETATION: 60697: Negative TCD bubble test. 41872: Mild stenosis in the right MCA.Suboptimal window on the left side. Both VA are antegrade. Signed 08/03/2017 07:31 AM Yousif Maurice MD, RPVI * Bronchoscopy (08/02/2017 2:19 PM) Narrative Leyda Pate MD 08/02/20172:19 PM Bronchoscopy Date/Time: 08/02/2017 2:16 PM Performed by: LEYDA HUBER V Authorized by: LEYDA HUBER V Consent: Consent obtained:Verbal Consent given by:Spouse Alternatives discussed:No treatment [place] protocol: Procedure explained and questions answered to [...] AM) Specimen Performing Laboratory [facility] [address] [place] [address] Narrative Vascular Ultrasound Laboratory Lower Extremity Venous Report [address] [place] [address].Name:Patience AGUILAR.ID:[id number] .Date: 08/02/2017Refer.MD:HILARIO MATHIS MD Exam Time: 9:58:00 AMStudy Type:LE Venous DOBAge:1950,66YSex: MALE Sonogrphr: Malcolm Benson, RVSPat. Stat.:Inpatient Room:[facility]1TapeVol: FE, CPT - 4: 69276 Echo Event ID:[id number] Order ID:[id number] Reason for Study:Leg swelling. Patient went into [...] Vascular Ultrasound Laboratory Lower Extremity Venous Report [address] [place] [address] Pat.Name: HILARIO AGUILAR Pat.ID: [id number] .Date: 08/02/2017 Refer.MD: HILARIO MATHIS MD Exam Time: 9:58:00 AM Study Type:LE Venous Age: 1 1950,66Y Sex: MALE Sonogrphr: RICK Thornton Pat. Stat.:Inpatient Room: [facility] Vol: , CPT - 4: 42973 Echo Event ID:[id number] Order ID: [id number] Reason for Study:Leg swelling. Patient went into [...] myocardial injury. Specimen Performing Laboratory Plasma specimen [facility] DEPARTMENT OF PATHOLOGY AND GENOMIC MEDICINE [address] [place] [address] * Lactic acid level (08/02/2017 6:10 AM) Only the most recent of 2 results within the time period is included. Component Value Ref Range Lactic acid 2.2 0.5 - 2.2 mmol/L Specimen Performing Laboratory Plasma specimen [facility] DEPARTMENT OF PATHOLOGY AND GENOMIC MEDICINE [address] [place] [address] * Urinalysis, automated with microscopy (08/01/2017 11:50 [...] None seen UA Specimen Performing Laboratory Urine [facility] DEPARTMENT OF PATHOLOGY AND GENOMIC MEDICINE [address] [place] [address] * Blood culture, aerobic & anaerobic (08/01/2017 11:45 PM) Only the most recent of 2 results within the time period is included. Component Value Ref Range Blood culture isolate No growth after 5 days of incubation. Comment: Specimen Information Specimen Source: Blood Specimen Site: Antecubital, right Specimen Performing Laboratory Blood - Antecubital, [facility] DEPARTMENT OF PATHOLOGY AND GENOMIC MEDICINE right [address] [place] [address] * CT Angiogram Pe Chest (08/01/2017 10:48 PM) Specimen Performing Laboratory [facility] [address] [place] [address] Narrative EXAMINATION:CT ANGIOGRAM PE CHEST CLINICAL HISTORY: [...] PM and acknowledged understanding of the findings. [facility]-[id number] Procedure Note Interface, Radiology Results Incoming - [...] PM and acknowledged understanding of the findings. [facility]-[id number] * CK-MB (08/01/2017 9:10 PM) Only the most recent of 2 results within the time period is included. Component Value Ref Range CK-MB 1.8 1.0 - 10.4 ng/mL Specimen Performing Laboratory Plasma specimen [facility] DEPARTMENT OF PATHOLOGY AND GENOMIC MEDICINE [address] [place], [place] [address] * Creatine kinase, total (CPK) (08/01/2017 9:10 PM) Only the most recent of 2 results within the time period is included. Component Value Ref Range Creatine kinase 136 39 - 308 U/L Specimen Performing Laboratory Plasma specimen [facility] DEPARTMENT OF PATHOLOGY AND GENOMIC MEDICINE [address] [place] [address] * INTUBATION (08/01/2017 7:39 PM) Narrative Leyda Pate MD 08/01/20177:39 PM Intubation Date/Time: 08/01/2017 7:35 PM Performed by: LEYDA HUBER V Authorized by: LEYDA HUBER V Consent: Consent obtained:Verbal Consent given by:Spouse Risks discussed:Aspiration Alternatives discussed:No treatment [place] protocol: Procedure explained and questions answered to [...] 1.32 mmol/L Specimen Performing Laboratory Plasma specimen [facility] DEPARTMENT OF PATHOLOGY AND [facility] MEDICINE [address] [place] [address] * Sodium level (07/29/2017 10:25 PM) Only the most recent of 8 results within the time period is included. Component Value Ref Range Sodium 149 (H) 135 - 148 mEq/L Specimen Performing Laboratory Plasma specimen [facility] DEPARTMENT OF PATHOLOGY AND [facility] MEDICINE [address] [place] [address] * Echocardiogram transesophageal (07/28/2017 4:28 PM) [place] [address] Narrative Transesophageal Echo Report [address] [place] [address], [place] [address] Pat.Name:Jarad AGUILARsumit.ID:[id number] St.Date: 07/28/2017Refer.MD:HILARIO MATHIS MD Exam Time: 3:56:00 PMStudy Type:YELITZA Height:69inWeight:196lb BSA: 2.05 m2 DOBAge:1950 ,66Y Sex: MALEBP: 150/52 HR:53 bpmSonogrphr: Ernesto Nenaj luis Cal[place]. Stat.:Inpatient Study Status:Final Echo Event ID:[id number] Order ID:[id number] Reason for Study:EVAL FOR CARDIOVASCULAR SOURCE OF EMBOLUS WITH NO IDENTIFIED NONCARDIAC SOURCE. CRYPTOGENIC EMBOLIC STROKE History / Clinical:Diabetes, Hyperlipidemia, Hypertension Procedures:Transesophageal Echo with Colorflow Doppler Race:C SUMMARY: No thrombus or mass is visualized in the LA or LA appendage. Moderate atherosclerotic changes seen in the descending aorta. No intracardiac shunt detected on saline bubble study. FINDINGS: YELITZA:The attending em physician performed the YELITZA procedure and waspresent for [...] Anesthesia: OtherASA Class: 4 Physician: Sonu Urrutia M.D.Pulling Machine Operator: Nena Orozco DO Pre TEEBP HR Post YELITZA BP HR 150/52 53 159/52 60 Meds:Viscous xylocaine, Cetacaine spray to oropharynx, Per Anesthesia Complications: None Condition: Stable MEASUREMENTS: 2D Parasternal Long Lavina Ao Rtd 3.8 cm Signed 07/28/2017 05:37 PM Sonu Urrutia M.D. Procedure Note Interface, Radiology Results In - 07/28/2017 5:37 PM CDT Transesophageal Echo Report [address], [place], [place] [address] Pat.Name: HILARIO AGUILAR Pat.ID: [id number] .Date: 07/28/2017 Refer.MD: HILARIO MATHIS MD Exam Time: 3:56:00 PM Study Type:YELITZA Height: 69in Weight: 196lb BSA: 2.05 m2 Age: 1 1950,66Y Sex: MALE BP: 150/52 HR: 53 bpm Sonogrphr: Nena Orozco DO Pat. Stat.:Inpatient Study Status:Final Echo Event ID:[id number] Order ID: [id number] Reason for Study:EVAL FOR CARDIOVASCULAR SOURCE OF EMBOLUS WITH NO IDENTIFIED NONCARDIAC SOURCE. CRYPTOGENIC EMBOLIC STROKE History / Clinical:Diabetes, Hyperlipidemia, Hypertension Procedures:Transesophageal Echo with Colorflow Doppler Race: C SUMMARY: No thrombus or mass is visualized in the LA or LA appendage. Moderate atherosclerotic changes seen in the descending aorta. No intracardiac shunt detected on saline bubble study. FINDINGS: YELITZA: The attending em physician performed the YELITZA procedure and was present [...] Anesthesia: Other ASA Class: 4 Physician: Sonu Urrutia M.D. Pulling Machine Operator: Nena Orozco DO Pre YELITZA BP HR Post YELITZA BP HR 150/52 53 159/52 60 Meds: Viscous xylocaine, Cetacaine spray to oropharynx, Per Anesthesia Complications: None Condition: Stable MEASUREMENTS: 2D Parasternal Long Lavina Ao Rtd 3.8 cm Signed 07/28/2017 05:37 [...] Contrast (07/27/2017 1:00 PM) Specimen Performing Laboratory [address] [address] Narrative EXAMINATION:MRI BRAIN WO CONTRAST CLINICAL HISTORY:NEURO [...] different vascular distributions likely due to emboli. [facility]-[id number] Procedure Note Interface, Radiology Results Incoming - [...] different vascular distributions likely due to emboli. [id number] * MRA Head Wo Contrast (07/27/2017 12:38 PM) Specimen Performing Laboratory [employer] [address] [place] [address] Narrative EXAMINATION:MRA HEAD WO CONTRAST CLINICAL HISTORY:STROKE COMPARISON:CT of the head dated July 26, 2017 TECHNIQUE: Head MRA using 3D ainb-pf-megbnd technique with multi-planar MIP and 3D reconstruction. [...] The posterior commuting arteries bilaterally are patent. [facility]-[id number] Procedure Note Interface, Radiology Results Incoming - 07/27/2017 1:15 PM CDT EXAMINATION: MRA HEAD WO CONTRAST CLINICAL HISTORY: STROKE COMPARISON: CT of the head dated July 26, 2017 TECHNIQUE: Head MRA using 3D iouh-bd-jjoqeo technique with multi-planar MIP and 3D reconstruction. [...] The posterior commuting arteries bilaterally are patent. [facility]-[id number] * Urinalysis screen and microscopy, with reflex [...] None seen UA Specimen Performing Laboratory Urine [facility] DEPARTMENT OF PATHOLOGY AND GENOMIC MEDICINE [address] [place] [address] * Urine culture (07/27/2017 7:28 AM) Component Value Ref Range Urine culture SEE COMMENTComment: Bacteriuria screen negative. Specimen Performing Laboratory [facility] DEPARTMENT OF PATHOLOGY AND [facility] [address] [place] [address] * Echocardiogram complete w contrast and 3D if needed (07/27/2017 6:30 AM) Specimen [facility] [address] [place] [address] Narrative Echocardiography Report [address] [place] [address].Name:Patience AGUILAR.ID:[id number] .Date: 07/27/2017Refer.MD:HILARIO MATHIS MD Exam Time: 5:46:00 AMStudy Type:Routine Echo Height:69inWeight:196lb BSA: 2.05 m2 DOBAge:1950 ,66Y Sex: MALEBP: 140/51 HR:45 bpmSonogrphr: Lorin Quinones RDCS, RVT Pat. Stat.:Inpatient Room: Study Status:Final Echo Event ID:[id number] Order ID:[id number] Reason for Study:Stroke History / Clinical:Diabetes, Hyperlipidemia, [...] PA systolic pressure. MEASUREMENTS: 2D Parasternal Long Lavina LVOT 2.3 cmLA Ds 3.4 cm LVIDd5.2 cmIndex 2.5 cm/m Ao An2.4 cm LVIDs3.6 cmAo Rtd 3.5 cm Index1.7 cm/m LV%fs 30.8 % LV Osqr616 g(122-174) IVSd 1.3 cmLVM Index 143.4 g/m2 [...] - 07/27/2017 8:33 AM CDT Echocardiography Report [id number] [id number] Pat.Name: HILARIO AGUILAR Pat.ID: [id number] St.Date: 07/27/2017 Refer.MD: HILARIO MATHIS MD Exam Time: 5:46:00 AM Study Type:Routine Echo Height: 69in Weight: 196lb BSA: 2.05 m2 Age: 1 1950,66Y Sex: MALE BP: 140/51 HR: 45 bpm Sonogrphr: Lorin Quinones RDCS, RVT Pat. Stat.:Inpatient Room: [place] [address] Study Status:Final Echo Event ID:[id number] Order ID: [id number] Reason for Study:Stroke History / Clinical:Diabetes, Hyperlipidemia, [...] PA systolic pressure. MEASUREMENTS: 2D Parasternal Long Lavina LVOT 2.3 cm LA Ds 3.4 cm [...] , bleeding and pneumothorax Alternatives discussed:No treatment [place] protocol: Patient identity confirmed:Arm band and hospital-assigned [...] puncture, incorrect placement, bleeding, infection and pneumothorax [place] protocol: Procedure explained and questions answered to [...] - 10 mm/hr Specimen Performing Laboratory Blood [facility] DEPARTMENT OF PATHOLOGY AND GENOMIC MEDICINE [address] [place] [address] * Prothrombin time with INR (07/26/2017 10:00 PM) Component Value Ref Range Prothrombin time 14.0 12.0 - 15.0 sec INR 1.1 Comment: The International Normalized Ratio (INR) is a therapeutic monitoring tool for patients who are stable on oral anticoagulant therapy. An INR of 2.0-3.0 is suggested for deep vein thrombosis/pulmonary embolism. Specimen Performing Laboratory Blood [facility] DEPARTMENT OF PATHOLOGY AND [facility] [address] [place] [address] * Fibrinogen (07/26/2017 10:00 PM) Component Value Ref Range Fibrinogen 349 200 - 450 mg/dL Specimen Performing Laboratory Blood [facility] DEPARTMENT OF PATHOLOGY AND [facility] [address] [place] [address] * Hemoglobin A1c (07/26/2017 10:00 PM) Component [...] type 1 diabetes. Specimen Performing Laboratory Blood [facility] DEPARTMENT OF PATHOLOGY AND GENOMIC MEDICINE [address] [place] [address] * Surgical pathology request (07/26/2017 3:40 PM) Only the most recent of 3 results within the time period is included. Component Value Ref Range Surgical pathology report See link below for PDF Lab Report Specimen Performing Laboratory [facility] DEPARTMENT OF PATHOLOGY AND GENOMIC MEDICINE [address] [place] [address] * IR Perq Art M-Thrombect NFS (07/26/2017 2:39 PM) Specimen [facility] [address] [place], [place] [id number] Narrative Clinical History: 66-year-old male who was [...] Initial posttreatment left internal carotid injection shows church of flow into the middle cerebral artery [...] clot was again forming in this region. [facility]-[id number] Procedure Note [facility], Radiology Results Incoming - 07/26/2017 6:39 [...] Initial posttreatment left internal carotid injection shows church of flow into the middle cerebral artery [...] clot was again forming in this region. [facility]-[id number] * CT Stroke Brain Wo Contrast (07/26/2017 1:19 PM) Specimen Performing Laboratory [facility] [address] [place] [address] Narrative EXAMINATION: CT STROKE BRAIN WO CONTRAST [...] with endovascular neuroradiologist at time of dictation. [facility]-[id number] Procedure Note Interface, Radiology Results Incoming - [...] with endovascular neuroradiologist at time of dictation. [facility]-[id number] * CTA Neck W Wo Contrast (07/26/2017 1:18 PM) Specimen Performing Laboratory [facility] [address] [place] [address] Narrative EXAMINATION:CT ANGIOGRAM NECK W WO CONTRAST [...] the right. Otherwise no vessel stenosis demonstrated. [facility]-[id number] Procedure Note Interface, Radiology Results Incoming - [...] the right. Otherwise no vessel stenosis demonstrated. [id number] * CTA Head W Wo Contrast (07/26/2017 1:16 PM) Specimen Performing Laboratory [facility] [address] [place] [address] Narrative EXAMINATION: CT ANGIOGRAM HEAD W WO [...] of dictation at 1330 hours on 07/26/2017. [facility]-[id number] Procedure Note Interface, Radiology Results Incoming - [...] of dictation at 1330 hours on 07/26/2017. [facility]-[id number] * Thyroid stimulating hormone (07/26/2017 12:53 PM) Component Value Ref Range TSH 0.75 0.27 - 4.20 uIU/mL Specimen Performing Laboratory Plasma specimen [facility] DEPARTMENT OF PATHOLOGY AND GENOMIC MEDICINE [address] [place] [address] * T4, free (07/26/2017 12:53 PM) Component Value Ref Range T4, free 1.1 0.9 - 1.7 ng/dL Specimen Performing Laboratory Plasma specimen [facility] DEPARTMENT OF PATHOLOGY AND GENOMIC MEDICINE [address] [place] [address] * Lipid panel (07/26/2017 12:53 PM) Component [...] (>=200 mg/dL) Specimen Performing Laboratory Plasma specimen [facility] DEPARTMENT OF PATHOLOGY AND [facility] [address] [place] [address] * Syphilis treponemal IgG (07/26/2017 12:21 PM) Component Value Ref Range Syphilis treponemal IgG Non-reactiveComment: Non-reactive: No serological Non-reactive evidence of Syphilis infection Specimen Performing Laboratory Serum [facility] [place] [address] * HIV 1, 2 antibody (07/26/2017 12:21 PM) Component Value Ref Range HIV 1, 2 antibody Non-reactive Non-reactive Comment: Starting from January 06 2016, 4th generation HIV screening and confirmation assays are in use at [facility], consistent with the CDC-recommended algorithm. [...] on the testing algorithm, please refer to: http://stacks.cdc.gov/view/cdc/71345. Specimen Performing Laboratory Blood [facility] DEPARTMENT OF PATHOLOGY AND GENOMIC MEDICINE [address] [place] [address] * Folate level (07/26/2017 12:21 PM) Component Value Ref Range Folate 10.1 4.8 - 24.2 ng/mL Specimen Performing Laboratory Serum [facility] OF PATHOLOGY AND [facility] [address] [place] [address] * Vitamin B12 level (07/26/2017 12:21 PM) Component Value Ref Range Vitamin B12 329 211 - 946 pg/mL Comment: Significant overlap exists between normal and deficiency states. However, most patients with deficiencies will have Serum B12 <200 pg/mL. Specimen Performing Laboratory Serum [facility] DEPARTMENT OF PATHOLOGY AND GENOMIC MEDICINE [address] [place] [address] * XR Pelvis 1 Or 2 Vw (07/26/2017 9:29 AM) Only the most recent of 3 results within the time period is included. Specimen Performing Laboratory [facility] [address] [place] [address] Narrative EXAMINATION:XR PELVIS 1 OR 2 VW [...] Specimen Performing Laboratory Nares - Not specified [facility] DEPARTMENT OF PATHOLOGY AND GENOMIC MEDICINE [address] [place] [address] after 01/03/2017 Insurance Payer Benefit Subscriber ID Type Phone Address Plan / Group MEDICARE MEDICARE xxxxxxxxxx Medicare [place], [place] PART A AND B [employer] xxxxxxxxxx Commercial [employer]! [facility]
--- OUTSIDE RECORDS SUMMARY | 2018-01-04 12:40 | XMS REPORT | Clinical Summary ---
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 Role Phone PCP Unavailable Allergies Active [...] Not on file Implants Implanted Type Area Cardio Tech Device Expiration Model / Identifier Date Serial / Lot Device Clsr Angio-Seal Vip 6fr Cardiovasc Right: ST IAN 06/09/2017 [id number] / [id number] - [id number] Leiva MED:CARDIAC / Implanted: Qty: 1 on 09/08/2016 by [id number] [id number] Chrales Beyer MD Synergy Stents-Cor Right: [place] 06/04/2017 [id number] Implanted: Qty: 1 on 09/08/2016 by onyoone Coronary SCIENTIFIC 6300 / Charles Beyer MD / [id number] Resolute Intergrity [employer] 07/02/2015 [id number] Implanted: Qty: 1 on 11/13/2014 by Colleen / Charles Beyer MD / [id number] Resolute Vintergrity 12/07/2015 [id number] Implanted: Qty: 1 on 11/13/2014 by Charles Wyatt MD / [id number] Angioseal [employer]AN MEDICAL 04/08/2015 [id number] / Implanted: Qty: 1 on 11/13/2014 by LAWANDA / Charles Beyer MD [id number] Results Not on fileafter 01/03/2017
--- OUTSIDE RECORDS SUMMARY | 2018-01-04 12:41 | XMS REPORT | Continuity of Care Document ---
Author Author [facility] Organization [facility] Address [address] [place] [address] Phone Unavailable Care Team Providers Care Carbon Cutter Name Role Phone JESÚS MARTINEZ MD PCP Insurance Providers Guarantor Hilario Marsh Jr Address [address] [place] [address] Email [email or web address] Payer Medicare A & B Policy Number [id number] Subscriber's Name Hilario Marsh Jr Relationship 18 Self / Same As Patient Group Number [id number] Group Name RETIRED Effective Date 13 Payer Aetna Medicare Supplement Plan Policy Number [id number] Subscriber's Name Hilario Marsh Jr Relationship 18 Self / Same As Patient Advance Directives Directive Response Recorded Date/Time Does the patient have an advance directive? No 10/07/17 3:41am If yes, is advance directive on file with [facility]? No 06/30/09 1:49am If not on file with [facility] will patient provide a copy? Yes 10/06/17 7:47pm Do you have a Directive to Physician? No 12/10/17 6:48pm Do you have a Medical Power of Meat Molder? No 12/10/17 6:48pm Do you have an out of hospital Do Not Resuscitate Order? No 12/10/17 6:48pm Do you have any special needs we should be aware of? No 12/10/17 6:48pm Do you have a support person here with you today? Yes 12/10/17 6:48pm Did patient receive Notice of Privacy Practices? Yes 12/10/17 6:48pm Did patient receive patient rights and responsibilities? Yes 12/10/17 6:48pm Problems Medical Problem Onset Date Status Dislodged gastrostomy tube Unknown Medications Current Home Medications Medication Dose Units Route Directions Days Qty Instructions Start Date Amlodipine Besylate 10 Mg Tablet 10 Mg Peg Tube Bedtime 30 Tab Aplxaban 5 Mg Peg Tube Daily Aspirin (Aspir 81) 81 Mg Tablet.dr 81 Mg Peg Tube Daily Atorvastatin Calcium 20 Mg Tablet 80 Mg Peg Tube Bedtime 30 Tab Docusate Sodium 100 Mg Capsule 100 Mg Peg Tube Twice A Day Donepezil Hcl (Aricept) 5 Mg Tablet 5 Mg Peg Tube Bedtime 30 Tab Doxazosin Mesylate 2 Mg Tablet 2 Mg Peg Tube Daily 30 Tab Famotidine 20 Mg Tab 20 Mg Peg Tube Daily 30 Tab Gabapentin 300 Mg Capsule 300 Mg Peg Tube Three Times A Day 60 Cap Lisinopril 10 Mg Tablet 40 Mg Peg Tube Daily 30 Tab Lorazepam (Ativan) 1 Mg Tablet 0.5 Mg Peg Tube Every 8 Hours as needed for Agitation Magnesium Oxide 400 Mg Tablet 400 Mg Peg Tube Daily Melatonin 3 Mg Tablet 6 Mg Peg Tube Bedtime Metformin Hcl 500 Mg Tablet 1,000 Mg Peg Tube Twice A Day 60 Tab Metoprolol Tartrate 50 Mg Tablet 100 Mg Peg Tube Every 12 Hours Modafinil 100 Mg Tablet 100 Mg Peg Tube Daily Nystatin 1 Each Powder.ea. 100,000 U Peg Tube Three Times A Day Sertraline Hcl 50 Mg Tablet 50 Mg Peg Tube Daily 30 Tab Social History Social History Problem Response Recorded Date/Time Onset Date Status Hx Psychiatric Problems Yes 10/07/2017 3:41am Not Applicable Not Applicable Hx Depression Yes 10/07/2017 3:41am Not Applicable Not Applicable Hospital Discharge Instructions No hospital discharge instruction information available. Plan of Care Discharge Date 12/10/17 9:58pm Disposition HOME, SELF-CARE Condition at Discharge Stable Instructions/Education Provided Contusion Fall Prevention Forms Provided Work/School Excuse Prescriptions See Medication Section Referrals JESÚS MARTINEZ MD Order Date: Call for an appointment Address: [address] [place] [address] Additional Instructions/Education DC HOME FOLLOW UP WITH PCP FOR THE MRI ON TUESDAY TAKE MEDS DIRECTED RETURN TO THE ER WITH ANY EMERGENT CONDITONS TYLNEOL FOR PAIN/FEVER-TAKE ACCORDING TO LABEL DIRECTIONS CHECK PT OVER THE NEXT 24HRS FOR ANY CHANGES NOT NORMAL. ALTERNATE ICE/HEAT FOR THE CONTUSION Functional Status No functional status information available. Allergies, Adverse Reactions, Alerts Allergen Type Severity Reaction Status Last Updated Penicillin Allergy Mild Active 06/30/09 Immunizations No immunization information available. Vital Signs Acute Vital Signs Vital Response Date/Time Temperature (Fahrenheit) 97.1 degrees F (97.6 - 99.5) 10/07/2017 12:42pm Pulse Pulse Rate (adult) 90 bpm (60 - 90) 10/07/2017 12:42pm Respiratory Rate 17 bpm (12 - 24) 10/07/2017 12:42pm Blood Pressure 134/98 mm Hg 10/07/2017 12:42pm Height 5 ft 8 in 12/10/2017 5:48pm Weight 174 lb 12/10/2017 5:48pm Body Mass Index 26.5 kg/m^2 12/10/2017 6:01pm Results Laboratory Results Test Name Result Units Flags Reference Collection Date/Time Result Date/ Time Comments Prothrombin Time 15.2 seconds H 11.9-14.5 10/06/2017 10:10pm 10/06/2017 11:03pm Prothromb Time International Ratio 1.14 10/06/2017 10:10pm 2016 11:03pm Oral Anticoagulant Therapy INR Values: 1. Low Intensity Therapy 1.5 - 2.0 2. Moderate Intensity Therapy 2.0 - 3.0 3. High Intensity Therapy(1) 2.5 - 3.5 4. High Intensity Therapy(2) 3.0 - 4.0 5. Panic Value INR > 5.0 Activated Partial Thromboplast Time 30.8 seconds 23.8-35.5 10/06/2017 10 :10pm 10/06/2017 11:06pm Bedside Glucose 127 mg/dL H 70-120 10/07/2017 12:14pm 10/07/2017 12: 26pm Meter ID: [id number] White Blood Count 6.69 x10e3/uL 4.8-10.8 11/21/2017 8:4511/21/2017 5 :32pm Red Blood Count 4.42 x10e6/uL 4.3-5.7 11/21/2017 8:4511/21/2017 5: 32pm Hemoglobin 12.7 g/dL L 14.0-18.0 11/21/2017 8:4511/21/2017 5:32pm Hematocrit 38.7 % 38.2-49.6 11/21/2017 8:4511/21/2017 5:32pm Mean Corpuscular Volume 87.6 fL 81-99 11/21/2017 8:4511/21/2017 5: 32pm Mean Corpuscular Hemoglobin 28.7 pg 28-32 11/21/2017 8:4511/21/2017 5:32pm Mean Corpuscular Hemoglobin Concent 32.8 g/dL 31-35 11/21/2017 8:4511/21/2017 5:32pm Red Cell Distribution Width 16.2 % H 11.7-14.4 11/21/2017 8:452017 5:32pm Platelet Count 280 x10e3/uL 140-360 11/21/2017 8:4511/21/2017 5: 32pm Neutrophils (%) (Auto) 56.3 % 38.7-80.0 11/21/2017 8:11/21/2017 5: 32pm Lymphocytes (%) (Auto) 33.0 % 18.0-39.1 11/21/2017 8:4511/21/2017 5: 32pm Monocytes (%) (Auto) 7.0 % 4.4-11.3 11/21/2017 8:4511/21/2017 5: 32pm Eosinophils (%) (Auto) 3.3 % 0.0-6.0 11/21/2017 8:4511/21/2017 5: 32pm Basophils (%) (Auto) 0.3 % 0.0-1.0 11/21/2017 8:4511/21/2017 5:32pm IM GRANULOCYTES % 0.1 % 0.0-1.0 11/21/2017 8:4511/21/2017 5:32pm Neutrophils # (Auto) 3.8 2.1-6.9 11/21/2017 8:45am 11/21/2017 5:32pm Lymphocytes # (Auto) 2.2 1.0-3.2 11/21/2017 8:45am 11/21/2017 5:32pm Monocytes # (Auto) 0.5 0.2-0.8 11/21/2017 8:45am 11/21/2017 5:32pm Eosinophils # (Auto) 0.2 0.0-0.4 11/21/2017 8:45am 11/21/2017 5:32pm Basophils # (Auto) 0.0 0.0-0.1 11/21/2017 8:45am 11/21/2017 5:32pm Absolute Immature Granulocyte (auto 0.01 x10e3/uL 0-0.1 11/21/2017 8: 45am 11/21/2017 5:32pm Sodium Level 139 mmol/L 136-145 11/21/2017 8:45am 11/21/2017 5:33pm Potassium Level 3.6 mmol/L 3.5-5.1 11/21/2017 8:45am 11/21/2017 5:33pm Chloride Level 106 mmol/L 98-107 11/21/2017 8:45am 11/21/2017 5:33pm Carbon Dioxide Level 24 mmol/L 22-29 11/21/2017 8:45am 11/21/2017 5: 33pm Anion Gap 12.6 mmol/L 8-16 11/21/2017 8:45am 11/21/2017 5:33pm Blood Urea Nitrogen 19 mg/dL 7-26 11/21/2017 8:45am 11/21/2017 5:33pm Creatinine 0.78 mg/dL 0.72-1.25 11/21/2017 8:45am 11/21/2017 5:33pm BUN/Creatinine Ratio 24 6-25 11/21/2017 8:45am 11/21/2017 5:33pm Estimat Glomerular Filtration Rate > 60 ML/MIN 60- 11/21/2017 8:45am 5:33pm Ranges were taken from the National Kidney Disease Education Program and the National Kidney Foundation literature. Reference ranges: 60 or greater: Normal 16-59 (for 3 consecutive months): Chronic kidney disease 15 or less: Kidney failure Glucose Level 113 mg/dL 74-118 11/21/2017 8:45am 11/21/2017 5:33pm Calcium Level 9.8 mg/dL 8.4-10.2 11/21/2017 8:45am 11/21/2017 5:33pm Procedures Procedure Status Date Provider(s) CHANGE GASTROSTOMY TUBE Completed 10/05/17 LEXIS BARGER MD CHANGE GASTROSTOMY TUBE Completed 10/05/17 LEXIS BARGER MD Computed tomography of brain without radiopaque contrast Active 12/10/17 ELVIS REED NP Computed tomography of cervical spine without contrast Active 12/10/17 ELVIS REED NP Encounters Encounter Location Arrival/Admit Date Discharge/Depart Date Attending Provider [facility] 12/10/17 5:40pm 9:58pm ABDIAS SIMMONS MD Registered [facility] 11/21/17 12:22pm JAXSON SOSA MD Registered [facility] 10/31/17 11:00am JAXSON SOSA MD [facility] 10/20/17 1:30pm JAXSON SOSA MD [facility]obs[facility] 10/07/17 12:17am 2:55pm JAXSON SOSA MD [facility] 10/05/17 4:58pm 5:07pm LEXIS BARGER MD [facility] 10/05/17 7:49am 10:20am LEXIS BARGER MD
[2018-01-04 13:24] LABS: BASOPHILS % 0.6 % (0.0-1.0); EOSINOPHILS # (AUTO) 0.3 (0.0-0.4); EOSINOPHILS % 3.9 % (0.0-6.0); HEMOGLOBIN 13.7 g/dL (14.0-18.0); LYMPHOCYTES # (AUTO) 2.4 (1.0-3.2); LYMPHOCYTES % 32.5 % (18.0-39.1); MEAN CORPUSCULAR HEMOGLOBIN 29.3 pg (28-32); MEAN CORPUSCULAR HGB CONC 32.6 g/dL (31-35); MEAN CORPUSCULAR VOLUME 89.7 fL (81-99); MONOCYTES # (AUTO) 0.6 (0.2-0.8); MONOCYTES % 8.1 % (4.4-11.3); NEUTROPHILS # (AUTO) 3.9 (2.1-6.9); NEUTROPHILS % 54.2 % (38.7-80.0); PLATELET COUNT 277 x10e3/uL (140-360); RED BLOOD COUNT 4.68 x10e6/uL (4.3-5.7); RED CELL DISTRIBUTION WIDTH 17.8 % (11.7-14.4)
[2018-01-04 13:29] LABS: INR 1.13; PROTHROMBIN TIME 13.6 seconds (11.9-14.5)
[2018-01-04 13:30] LABS: PARTIAL THROMBOPLASTIN TIME 29.7 seconds (23.8-35.5)
[2018-01-04 13:36] LABS: ALANINE AMINOTRANSFERASE 7 IU/L (0-55); ALBUMIN 3.7 g/dL (3.5-5.0); ALBUMIN/GLOBULIN RATIO 1.1 (0.8-2.0); ALKALINE PHOSPHATASE 58 IU/L (40-150); ANION GAP 13.6 mmol/L (8-16); BLOOD UREA NITROGEN 27 mg/dL (7-26); BUN/CREATININE RATIO 26 (6-25); CALCIUM 10.3 mg/dL (8.4-10.2); CARBON DIOXIDE 27 mmol/L (22-29); CHLORIDE 104 mmol/L (98-107); CREATININE, SERUM 1.04 mg/dL (0.72-1.25); EST GLOMERULAR FILTRATION RATE > 60 ML/MIN (60-); GLUCOSE 249 mg/dL (74-118); POTASSIUM 3.6 mmol/L (3.5-5.1); SODIUM 141 mmol/L (136-145)
--- NOTE | 2018-01-04 14:19 | Diagnostic Imaging Report ---
EXAMINATION: Head CT HISTORY: Status post fall, trauma COMPARISON: Head CT 12/10/2017 TECHNIQUE: Multidetector axial images were obtained without contrast from the foramen magnum to the vertex . The images were reconstructed using brain and bone algorithms. Thin section brain images were reformatted into coronal and sagittal planes. Intravenous contrast: None. Motion/streaking artifact limits the evaluation of the skull base and posterior cranial fossa. FINDINGS: Parenchyma: 1. Unchanged cortical and subcortical hypodensity that extends in the posterior aspect of left frontal lobe and left parietal lobe into the centrum semiovale while he, melgoza radiata, insular lobe, lateral aspect of lentiform nucleus and superior aspect of the temporal lobe represents age indeterminate vascular insult in the MCA territory. 2. Unchanged left hemispheric gyriform linear hyperdensity likely related to laminar necrosis associated to above-mentioned chronic infarct. 3. Persistent Wallerian degeneration in the left cerebral peduncle. 4. Unchanged focal cortical hypodensity in the left occipitoparietal region with regional volume loss represents chronic encephalomalacia from prior vascular insult in the left MCA/SHAFT MECHANIC watershed distribution. 5. No CT evidence of acute territorial vascular insult. Extra-axial spaces:No abnormal density. No extra-axial fluid collections Brain volume: Normal for age. Ventricles: Interval resolution of previously seen minimal intraventricular hemorrhage layering in the occipital horns Arteries: No density suggestive of thrombus. Dural sinuses: No abnormal density. Extra-axial spaces: No abnormal density. Foramen magnum: No mass, Chiari malformation, or basilar invagination. Sella: No obvious mass. Paranasal/mastoid sinuses: Imaged portions unremarkable. Skull/Scalp: No lytic or blastic lesions. No fractures. IMPRESSION: 1. No acute posttraumatic intracranial abnormalities, particularly no hemorrhage. 2. 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 3. Interval resolution of previously seen small amount of intraventricular hemorrhage. Signed by: Dr. Yoko Flowers M.D. on 01/04/2018 2:15 PM
[2018-01-04 15:39] VITALS: BP 132/66
== END 2018-01-04 15:49 | disposition home or self-care (01) ==
LOC: ER 12:37
DX: S00.83XA Contusion of other part of head, initial encounter (principal); W05.0XXA Fall from non-moving wheelchair, initial encounter; Y92.008 Other place in unspecified non-institutional (private) residence as the place of occurrence of the external cause; E11.9 Type 2 diabetes mellitus without complications; I69.959 Hemiplegia and hemiparesis following unspecified cerebrovascular disease affecting unspecified side
CPT/HCPCS: 36415; 70450; 80053; 85025; 85610; 85730; 93005; 99284

== ENCOUNTER 2018-02-27 13:56 | Emergency (ER) | payer MEDICARE, OTHER ==
[~2018-02-27] VITALS: Ht 172.7 cm; Wt 78.9 kg
--- OUTSIDE RECORDS SUMMARY | 2018-02-27 13:59 | XMS REPORT | Clinical Summary ---
Author Author [facility] Organization 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 Name Role Phone PCP Unavailable Allergies Active [...] Not on file Implants Implanted Type Area Medicinal Plant Picker Device Expiration Model / Identifier Date Serial / Lot Device Clsr Angio-Seal Vip 6fr Cardiovasc Right: ST IAN 06/09/2017 [id number] / [id number] - [id number] Leiva MED:CARDIAC / Implanted: Qty: 1 on 09/08/2016 by [id number] Charles Beyer MD Synergy Stents-Cor Right: [place] 06/04/2017 [id number] Implanted: Qty: 1 on 09/08/2016 by [employer]if Coronary [employer]ENTIFIC [id number] / Charles Beyer MD / [id number] Resolute Intergrity MEDTRONIC 07/02/2015 [id number] Implanted: Qty: 1 on 11/13/2014 by Colleen / Charles Beyer MD / [id number] Resolute Vintergrity 12/07/2015 [id number] Implanted: Qty: 1 on 11/13/2014 by Charles Wyatt MD / [id number] Angioseal [employer] 04/08/2015 [id number] / Implanted: Qty: 1 on 11/13/2014 by LAWANDA / Charles Beyer MD [id number] Results Not on fileafter 02/26/2017
--- OUTSIDE RECORDS SUMMARY | 2018-02-27 13:59 | XMS REPORT | Clinical Summary ---
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 Name Role Phone Asked, Pcp PCP Unavailable [...] Overview: Added automatically from request for surgery [id number] Osteoarthritis of left hip 03/08/2017 Encounters Date [...] Surgery Hilario Mathis MD TOTAL HIP ARTHROPLASTY after 02/26/2017 Immunizations Name Dates Previously Given Next Due [...] Health Maintenance Due Date Last Done Comments DIABETIC FOOT EXAM 1958 DIABETIC RETINAL EYE EXAM 1958 URINE MICROALBUMIN 1958 COLON CANCER SCREENING 1998 SHINGRIX VACCINE (#1) 1998 ZOSTER VACCINE 2008 PNEUMOCOCCAL 2013 POLYSACCHARIDE VACCINE AGE 65 AND OVER INFLUENZA VACCINE 05/10/2018 PNEUMOCOCCAL-13 Completed 03/09/2017 Implants Implanted Type Area Bone Plant Supervisor Device Expiration Model / Identifier Date Serial / Lot Device Vasclr Clsr Vasoactive Cardiovasc N/A: N/A 05/09/2018 [id number] / Intstnl Peptd 6fr Angio-Seal - ular / [id number] Implants [id number] Implanted: 07/26/2017 (Quantity not on file) Device Vasclr Clsr Vasoactive Cardiovasc N/A: N/A 12/07/2017 [id number] / Intstnl Peptd 8fr Angio-Seal - ular / [id number] Implants [id number] Implanted: 07/26/2017 (Quantity not on file) Head Fml Sld Modlr Co-Cr 40x-6mm Hip Joint Left: Hip [employer] INC 08/10 [id number] / [id number] - [id number] Implants / Implanted: Qty: 1 on 03/08/2017 by [id number] Hilario Mathis MD G7 Osseoti 4 Hole Shell 56mm F - IPM Left: Hip [employer] INC 2025 [id number] IMPLANT / Implanted: Qty: 1 on 03/08/2017 by TONIO / Hilario Mathis MD [id number] Liner G7 Neutral Arcomxl G40 - IPM Left: Hip [employer] INC 07/10/2021 [id number] IMPLANT / Implanted: Qty: 1 on 03/08/2017 by TONIO / Hilario Mathis MD [id number] Tprlc 133 Type1 Pps So 10.0 IPM Left: Hip [employer] INC 01/08/2027 [id number] Taperloc Complete Stem - [id number] IMPLANT / Implanted: Qty: 1 on 03/08/2017 by TONIO / Hilario Mathis MD [id number] G7 Osseoti Ltd Hole Shell 54mm - IPM Right: Hip [employer], INC 2026 [id number] IMPLANT / Implanted: Qty: 1 on 07/26/2017 by TONIO / Hilario Mathis MD [id number] G7 Neutral E1 Liner 40mm F - IPM Right: Hip [employer] 01/22/2022 [id number] IMPLANT / Implanted: Qty: 1 on 07/26/2017 by TONIO / Hilario Mathis MD [id number] Tprlc 133 Fp Type1 Pps So 8.0, IPM Right: Hip [employer] 04/09/2027 [id number] Taperloc Complete Stem - [id number] IMPLANT / Implanted: Qty: 1 on 07/26/2017 by DEVICES / Hilario Mathis MD [id number] Head Feml Ceramc Type 1 Taperd Orthopedic Right: Hip [employer] INC 03/10 650 1058 / Option 40mm Biolox Delta - Trauma / [id number] Implants [id number] Implanted: Qty: 1 on 07/26/2017 by Hilario Mathis MD Catheter [id number] Reperfusion High Surgical N/A: N/A [employer] [id number] Flow Tubing 6.0f 132cm - [id number] Implants; KIT / Implanted: 07/26/2017 (Quantity not Expanders; / on file) Extenders; Surgical Wires Device Revasclrzn Flow Rstrtn Surgical N/A: N/A [employer] INC SFR3 4 20 20x4mm Solitaire - [id number] Implants; 10 / Implanted: 07/26/2017 (Quantity not Expanders; / on file) Extenders; Surgical Wires Neuron Select 5f 130 [place] - Surgical N/A: N/A [employer] [id number] Implants; R / Implanted: 07/26/2017 (Quantity not Expanders; / on file) Extenders; Surgical Wires Procedures Procedure Name Priority Date/Time Associated Diagnosis Comments EGD W/PEG 08/04/2017 Other dysphagia 2:00 PM CDT HC CATH DUAL LUMEN PICC Routine 08/03/2017 Results for this 1:17 PM CDT procedure are in the results section. HC US GUIDED VASCULAR Routine 08/03/2017 Results for this ACCESS 1:17 PM CDT procedure are in the results section. HC CVL PICC INSERT 5 YRS Routine 08/03/2017 [...] CDT procedure are in the COLOR DOPPLER (84659) results section. INTUBATION Routine 07/26/2017 Localized osteoarthrosis Results for this 11:59 PM CDT of left hip procedure are in the Cerebrovascular accident results section. (CVA) due to occlusion of left middle cerebral artery Primary osteoarthritis of right hip Semicoma Primary osteoarthritis of left hip WV INSERT NON-TUNNEL CV Routine 07/26/2017 Cerebrovascular accident Results for this CATH 11:56 PM CDT (CVA) due to occlusion of procedure are in the left middle cerebral results section. artery ARTHROPLASTY, HIP, TOTAL 07/26/2017 Localized osteoarthrosis 8:15 AM CDT of left hip Special Needs GRANT BIOMET WV AN SPINAL BLOCK Routine 07/26/2017 PROCEDURE FOR [...] complicati ons and patient tolerated procedure well WV AN SPINAL BLOCK Routine 07/26/2017 POST-OP PAIN 7:52 AM CDT Procedure Note - Duy Cueva MD - 07/26/2017 7:51 AM CDT Spinal Block Performed by: DUY CUEVA Authorized by: DUY CUEVA Patient Location: Pre-op Start Time: 07/26/2017 7:42 AM End Time: 07/26/2017 7:50 AM Reason for Block: at surgeon's request, post-op pain management , procedure for pain Staff: Beth wyattt: DUY CUEVA Performed by: Anesthesio norbert patient [...] complicati ons and patient tolerated procedure well WV AN ELECTIVE Routine 03/08/2017 ENDOTRACHEAL AIRWAY 8:17 [...] 1 Easy atraumatic intubation . Dentition unchanged WV AN SPINAL BLOCK Routine 03/08/2017 PROCEDURE FOR [...] Staff: Keno logist: RIGO KO Performed by: Anesthesio norbert [...] RPM- 22ga quincke-3. 5", pt tolerated well WV AN SPINAL BLOCK Routine 03/08/2017 POST-OP PAIN [...] Staff: Keno logist: RIGO KO Performed by: Beth toussaint patient identified , IV checked, site [...] BIOMET GRANT Special Needs BIOMET GRANT after 02/26/2017 Results * POC glucose (08/09/2017 3:49 PM) Only the most recent of 92 results within the time period is included. Component Value Ref Range POC glucose 182 (H) 65 - 99 mg/dL Comment: [facility] Notified RN Meter ID: [id number] Wire Machine Operator: Suzan Gayle Specimen Performing Laboratory [facility] DEPARTMENT OF PATHOLOGY AND GENOMIC MEDICINE [address] [place] [address] * XR Hip 2-3 View Left (08/09/2017 11:28 AM) Specimen Performing Laboratory [facility] [address] [place], [place] [id number] Narrative EXAMINATION:XR HIP 2-3 VIEWS LEFT CLINICAL HISTORY:Post Op, post op evaluation prior to transfer to facility COMPARISON:None. IMPRESSION: Left total hip arthroplasty is in place. There is no evidence of hardware fracture or dislocation. [facility]-[id number] Procedure Note Interface, Radiology Results Incoming - 08/09/2017 11:42 AM CDT EXAMINATION: XR HIP 2-3 VIEWS LEFT CLINICAL HISTORY: Post Op, post op evaluation prior to transfer to facility COMPARISON: None. IMPRESSION: Left total hip arthroplasty is in place. There is no evidence of hardware fracture or dislocation. [facility]-[id number] * XR Chest 1 Vw Portable (08/09/2017 5:01 AM) Only the most recent of 15 results within the time period is included. Specimen [facility] [address] [place] [address] Narrative EXAMINATION:XR CHEST 1 VW PORTABLE CLINICAL HISTORY: Ventilator Patient COMPARISON:08/08/2017 IMPRESSION: Support lines and tubes remain in stable position. Cardiomediastinal silhouette is stable. Pulmonary vasculature is top normal.No focal infiltrate, effusion or pneumothorax seen. [facility]-[id number] Procedure Note Interface, Radiology Results Incoming - 08/09/2017 6:13 AM CDT EXAMINATION: XR CHEST 1 VW PORTABLE CLINICAL HISTORY: Ventilator Patient COMPARISON: 08/08/2017 IMPRESSION: Support lines and tubes remain in stable position. Cardiomediastinal silhouette is stable. Pulmonary vasculature is top normal. No focal infiltrate, effusion or pneumothorax seen. [facility]-[id number] * Ionized calcium, arterial (08/09/2017 4:15 AM) Only the most recent of 14 results within the time period is included. Component Value Ref Range Ionized calcium, arterial 1.21 1.11 - 1.32 mmol/L Specimen Performing Laboratory Blood [facility] DEPARTMENT OF PATHOLOGY AND GENOMIC MEDICINE [address] [place] [address] * CBC hemogram (08/09/2017 4:15 AM) Only [...] 0.00 /100 WBC Specimen Performing Laboratory Blood [facility] DEPARTMENT OF PATHOLOGY AND GENOMIC MEDICINE [address] [place] [address] * Arterial blood gas (08/09/2017 4:15 AM) [...] - 100 % Specimen Performing Laboratory Blood [facility] DEPARTMENT OF PATHOLOGY AND [address] [address] * Estimated GFR (08/09/2017 4:00 AM) Only [...] and Americans. Specimen Performing Laboratory Plasma specimen [facility] DEPARTMENT OF PATHOLOGY AND [address] [address] * Phosphorus level (08/09/2017 4:00 AM) Only the most recent of 17 results within the time period is included. Component Value Ref Range Phosphorus 3.3 2.4 - 4.5 mg/dL Specimen Performing Laboratory Plasma specimen [facility] DEPARTMENT OF PATHOLOGY AND [address] [address] * Magnesium level (08/09/2017 4:00 AM) Only the most recent of 18 results within the time period is included. Component Value Ref Range Magnesium 2.7 (H) 1.6 - 2.4 mg/dL Specimen Performing Laboratory Plasma specimen [facility] DEPARTMENT OF PATHOLOGY AND [facility] MEDICINE [address] [place] [address] * Basic metabolic panel (08/09/2017 4:00 AM) [...] 10.2 mg/dL Specimen Performing Laboratory Plasma specimen [facility] DEPARTMENT OF PATHOLOGY AND GENOMIC MEDICINE [address] [place] [address] * ECG 12 lead (08/08/2017 12:05 PM) Only the most recent of 3 results within the time period is included. Component Value Ref Range Ventricular rate 66 Atrial rate 66 WV interval 134 QRSD interval 90 QT interval 402 QTC interval 421 P axis 1 39 QRS axis 1 -64 T wave axis 64 EKG impression Normal sinus rhythm-Left anterior fascicular block-Anteroseptal infarct , age undetermined-Possible lateral infarct as cited before-Abnormal ECG-In automated comparison with ECG of 29-JUL-2017 16:56,-Anteroseptal infarct is now present-Questionable change in initial forces of Anterior leads- Specimen Performing Laboratory [facility] MUSE [address] [place] [address] * Potassium level (08/07/2017 6:05 PM) Only the most recent of 3 results within the time period is included. Component Value Ref Range Potassium 4.0 3.5 - 5.0 mEq/L Specimen Performing Laboratory Plasma specimen [facility] DEPARTMENT OF PATHOLOGY AND GENOMIC MEDICINE [address] [place] [address] * CT Head Wo Contrast (08/07/2017 4:01 AM) Only the most recent of 5 results within the time period is included. Specimen Performing Laboratory [facility] [address] [place] [address] Narrative EXAMINATION:CT HEAD WO CONTRAST COMPARISON:06 August [...] unchanged in size. IMPRESSION: No interval change. [facility]-[id number] Procedure Note Interface, Radiology Results Incoming - [...] unchanged in size. IMPRESSION: No interval change. [facility]-[id number] * Partial thromboplastin time, activated (08/07/2017 2:40 AM) Only the most recent of 10 results within the time period is included. Component Value Ref Range PTT 35.6 23.0 - 36.0 sec Comment: PTT therapeutic range for unfractionated heparin is 61.0-112.0 seconds which corresponds to Anti-Xa 0.3-0.7 U/ml. Specimen Performing Laboratory Blood [facility] DEPARTMENT OF PATHOLOGY AND [facility] MEDICINE [address] [place] [address] * Comprehensive metabolic panel (08/06/2017 1:52 AM) [...] 6.0 (L) 6.3 - 8.3 g/dL Comment: [place] 4.6-7.0 g/dL 1 week 4.4-7.6 g/dL 7 [...] 1.2 mg/dL Specimen Performing Laboratory Plasma specimen [facility] DEPARTMENT OF PATHOLOGY AND [employer] [facility]IC[facility] [address] [place] [address] * CBC with platelet and differential (08/06/2017 [...] (promyelocytes, myelocytes, metamyelocytes) Specimen Performing Laboratory Blood [facility] DEPARTMENT OF PATHOLOGY AND GENOMIC MEDICINE [address] [place] [address] * Vancomycin level, trough (08/04/2017 11:30 AM) Component Value Ref Range Vancomycin, trough 13.5 10.0 - 20.0 ug/mL Comment: Therapeutic Ranges: Peak 30.0 - 40.0 ug/mL Trough 10.0 - 20.0 ug/mL Specimen Performing Laboratory Serum [facility] DEPARTMENT OF PATHOLOGY AND GENOMIC MEDICINE [address] [place] [address] * XR Abdomen 1 Vw Portable (08/03/2017 6:48 PM) Only the most recent of 3 results within the time period is included. Specimen Performing Laboratory [address] [address] Narrative EXAMINATION:XR ABDOMEN 1 VW PORTABLE CLINICAL HISTORY:Check dobhoff placement COMPARISON:August 02, 2017 IMPRESSION: Dobbhoff tube terminates in the distal stomach level, similar to prior. Bowel gas pattern is nonobstructive. [facility]-[id number] Procedure Note Interface, Radiology Results Incoming - 08/03/2017 6:54 PM CDT EXAMINATION: XR ABDOMEN 1 VW PORTABLE CLINICAL HISTORY: Check dobhoff placement COMPARISON: August 02, 2017 IMPRESSION: Dobbhoff tube terminates in the distal stomach level, similar to prior. Bowel gas pattern is nonobstructive. [facility]-[id number] * Transfuse RBC (08/03/2017 4:26 PM) * XR Picc Chest Portable (08/03/2017 2:08 PM) Specimen Performing Laboratory [facility] [address] [place] [address] Narrative EXAMINATION:XR PICC CHEST PORTABLE CLINICAL HISTORY:PICC line position verification COMPARISON:August 03, 2017 0300 hours chest IMPRESSION: Interval placement left PICC line catheter. Catheter tip superior vena cava level of T7. Endotracheal tube feeding tube and right IJ catheter unchanged. No pneumothorax. Central vascular prominence is stable Cardiomediastinal silhouette remains normal size with mild vascular ectasia [facility]-[id number] Procedure Note Interface, Radiology Results Incoming - [...] remains normal size with mild vascular ectasia [facility]-[id number] * PICC INSERTION (08/03/2017 1:17 PM) Narrative Angel Blas 08/03/20171:17 PM PICC insertion Date/Time: 08/03/2017 1:17 PM Performed by: MANDY PROCTOR Authorized by: LEYDA HUBER V Consent: Consent obtained:Verbal Consent given by:Patient (PT. 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 IV therapy Location:Left brachial Site selection rationale:LIMITEDRIGHT ARM MOVEMENT Device Type:Non-valved Catheter size:5 Fr Unsuccessful Attempt(s): Location(s) Attempted:Left basilic Problems or complications:Unable to access vein PICC Characteristics: Catheter Brand:I Like My Waitress PICC External Catheter Length (cm):0 Internal Catheter Length (cm):43 Total Catheter Length (cm):43 Catheter Lot Number:[id number] Catheter Expiration Date:05/09/2019 Procedure Details: Landmarks identified: [...] Red Blood Cells -1, Leukored Unit number [id number] Product code [id number] Dispense status Transfused Blood expiration date 20170825 Blood type code 5100 Blood type O POSITIVE Product name Apheresis Red Cell AS3 #1 LR Unit number [id number] Product code [id number] Dispense status Transfused Blood expiration date 20170825 Blood type code 5100 Blood type O POSITIVE Specimen Performing Laboratory [facility] DEPARTMENT OF PATHOLOGY AND GENOMIC MEDICINE [address] [place] [address] * Type and screen (08/03/2017 10:15 AM) Only the most recent of 3 results within the time period is included. Component Value Ref Range ABO grouping O Rh type POS Antibody screen (gel) NEG Specimen Performing Laboratory Blood [facility] DEPARTMENT OF PATHOLOGY AND GENOMIC MEDICINE [address] [place] [address] * Insert arterial line (08/02/2017 11:35 PM) Only the most recent of 2 results within the time period is included. Suzanne Hernandez MD 08/02/2017 11:35 PM Arterial Line [...] Lingula Specimen Performing Laboratory Bronchial washing - [facility] DEPARTMENT OF PATHOLOGY AND GENOMIC MEDICINE [facility] [address] [place] [address] * Sputum culture (08/02/2017 3:08 PM) Only the most recent of 2 results within the time period is included. Component Value Ref Range Sputum culture isolate Normal oral aly isolated. Comment: Specimen Information Specimen Source: Sputum Specimen Site: Expectorated Specimen Performing Laboratory Sputum - Expectorated [facility] DEPARTMENT OF PATHOLOGY AND GENOMIC MEDICINE [address] [place] [address] * Gram stain (08/02/2017 3:08 PM) Only the most recent of 2 results within the time period is included. Component Value Ref Range Gram stain isolate Many WBC's No organisms seen Comment: Specimen Information Specimen Source: Sputum Specimen Site: Expectorated Specimen Performing Laboratory Sputum - Expectorated [facility] OF PATHOLOGY AND [facility] MEDICINE [address] [place] [address] * Pv transcranial Doppler intracranial arteries emboli detect w inj (08/02/2017 2:30 PM) Specimen Performing Laboratory [facility] [address] [place] [address] Narrative Vascular Ultrasound Laboratory Transcranial Doppler Report (TCD) [address] [place] [address] Pat.Name:Patience AGUILAR.ID:[id number] .Date: 08/02/2017Refer.MD:HILARIO MATHIS MD Exam Time: 2:54:00 PMStudy Type:TCD DOBAge:1950,66YSex: MALE Sonogrphr: Gianni Mosher RDMS, RVTPat. Stat.:Inpatient Room:NICU 1TapeVol: , CPT - 4: 78155, 29088Asrr Event ID:[id number] Order ID:[id number] Reason for Study:Acute pulmonary embolism and ischemic stroke (persistent occlusion of M1 segment of left MCA) s/p thrombectomy. History of left hip replacement, hypertension, type 2 diabetes, coronary arterial disease. Race:C SUMMARY: RIGHT LEFT Antegrade RetrogradeAntegrade Retrograde Ophthalmic Artery+ + RIGHT LEFT Normal Abnormal Not SeenNormal Abnormal Not Seen Siphon 7828 [id number] + GIANCARLO ++ PERCH MENDER 6241 Basilar prox only+ Vertebral ++ TECHNIQUE [...] of the left vertebral artery. PHYSICIAN INTERPRETATION: 00909: Negative TCD bubble test. 15020: Mild stenosis in the right MCA.Suboptimal window on the left side. Both VA are antegrade. Signed 08/03/2017 07:31 AM Yousif Maurice MD, RPVI Procedure Note Interface, Radiology Results In - 08/03/2017 7:31 AM CDT Vascular Ultrasound Laboratory Transcranial Doppler Report (TCD) [address] [place] [address] Pat.Name: HILARIO AGUILAR Pat.ID: [id number] .Date: 08/02/2017 Refer.MD: HILARIO MATHIS MD Exam Time: 2:54:00 PM Study Type:TCD Age: 1 1950,66Y Sex: MALE Sonogrphr: Gianni Mosher RDMS, RVT Pat. Stat.:Inpatient Room: [facility] 1 Tape Vol: ST, CPT - 4: 65984, 80884 Echo Event ID:[id number] Order ID: [id number] Reason for Study:Acute pulmonary embolism and ischemic stroke (persistent occlusion of M1 segment of left MCA) s/p thrombectomy. History of left hip replacement, hypertension, type 2 diabetes, coronary arterial disease. Race: C SUMMARY: RIGHT LEFT Antegrade Retrograde Antegrade Retrograde Ophthalmic Artery + + RIGHT LEFT Normal Abnormal Not Seen Normal Abnormal Not Seen Siphon 78 28 MCA 105 + GIANCARLO + + PERCH MENDER 62 41 Basilar prox only + Vertebral [...] of the left vertebral artery. PHYSICIAN INTERPRETATION: 13664: Negative TCD bubble test. 48967: Mild stenosis in the right MCA.Suboptimal window on the left side. Both VA are antegrade. Signed 08/03/2017 07:31 AM Yousif Maurice MD, RPVI * Bronchoscopy (08/02/2017 2:19 PM) Narrative Leyda Pate MD 08/02/20172:19 PM Bronchoscopy Date/Time: 08/02/2017 2:16 PM Performed by: LEYDA HUBER V Authorized by: LEYDA HUBER V Consent: Consent obtained:Verbal Consent given by:Spouse Alternatives discussed:No treatment [facility] protocol: Procedure explained and questions answered to [...] AM) Specimen Performing Laboratory [facility] [address] [place] [address] Narrative Vascular Ultrasound Laboratory Lower Extremity Venous Report [address]Name:Patience AGUILAR.ID:[id number] .Date: 08/02/2017Refer.MD:HILARIO MATHIS MD Exam Time: 9:58:00 AMStudy Type:LE Venous DOBAge:1950,66YSex: MALE Sonogrphr: Malcolm Benson, RVSPat. Stat.:Inpatient Room:[facility]1TapeVol: , CPT - 4: 58753 Echo Event ID:[id number] Order ID:[id number] Reason for Study:Leg swelling. Patient went into [...] Vascular Ultrasound Laboratory Lower Extremity Venous Report [address] [place] [address] Pat.Name: HILARIO AGUILAR Pat.ID: [id number] St.Date: 08/02/2017 Refer.MD: HILARIO MATHIS MD Exam Time: 9:58:00 AM Study Type:LE Venous Age: 1 1950,66Y Sex: MALE Sonogrphr: RICK Thornton Pat. Stat.:Inpatient Room: [facility]#1 Tape Vol: FE, CPT - 4: 44599 Echo Event ID:[id number] Order ID: [id number] Reason for Study:Leg swelling. Patient went into [...] myocardial injury. Specimen Performing Laboratory Plasma specimen [facility] DEPARTMENT OF PATHOLOGY AND GENOMIC MEDICINE [address] [place] [address] * Lactic acid level (08/02/2017 6:10 AM) Only the most recent of 2 results within the time period is included. Component Value Ref Range Lactic acid 2.2 0.5 - 2.2 mmol/L Specimen Performing Laboratory Plasma specimen [facility] DEPARTMENT OF PATHOLOGY AND GENOMIC MEDICINE [address] [place], [place] [address] * Urinalysis, automated with microscopy (08/01/2017 11:50 [...] None seen UA Specimen Performing Laboratory Urine [facility] DEPARTMENT OF PATHOLOGY AND GENOMIC MEDICINE [address] [place] [address] * Blood culture, aerobic & anaerobic (08/01/2017 11:45 PM) Only the most recent of 2 results within the time period is included. Component Value Ref Range Blood culture isolate No growth after 5 days of incubation. Comment: Specimen Information Specimen Source: Blood Specimen Site: Antecubital, right Specimen Performing Laboratory Blood - Antecubital, [facility] DEPARTMENT OF PATHOLOGY AND GENOMIC MEDICINE right [address] [place] [address] * CT Angiogram Pe Chest (08/01/2017 10:48 PM) Specimen Performing Laboratory [facility] [address] [place] [address] Narrative EXAMINATION:CT ANGIOGRAM PE CHEST CLINICAL HISTORY: [...] PM and acknowledged understanding of the findings. [facility]-[id number] Procedure Note Interface, Radiology Results Incoming - [...] PM and acknowledged understanding of the findings. [facility]-[id number] * CK-MB (08/01/2017 9:10 PM) Only the most recent of 2 results within the time period is included. Component Value Ref Range CK-MB 1.8 1.0 - 10.4 ng/mL Specimen Performing Laboratory Plasma specimen [facility] DEPARTMENT OF PATHOLOGY AND GENOMIC MEDICINE [address] [place] [address] * Creatine kinase, total (CPK) (08/01/2017 9:10 PM) Only the most recent of 2 results within the time period is included. Component Value Ref Range Creatine kinase 136 39 - 308 U/L Specimen Performing Laboratory Plasma specimen [facility] DEPARTMENT OF PATHOLOGY AND GENOMIC MEDICINE [address] [place] [address] * INTUBATION (08/01/2017 7:39 PM) Narrative Leyda Pate MD 08/01/20177:39 PM Intubation Date/Time: 08/01/2017 7:35 PM Performed by: LEYDA HUBER V Authorized by: LEYDA HUBER V Consent: Consent obtained:Verbal Consent given by:Spouse Risks discussed:Aspiration Alternatives discussed:No treatment [facility] protocol: Procedure explained and questions answered to [...] 1.32 mmol/L Specimen Performing Laboratory Plasma specimen [facility] DEPARTMENT OF PATHOLOGY AND [facility] MEDICINE [address] [place] [address] * Sodium level (07/29/2017 10:25 PM) Only the most recent of 8 results within the time period is included. Component Value Ref Range Sodium 149 (H) 135 - 148 mEq/L Specimen Performing Laboratory Plasma specimen [facility] DEPARTMENT OF PATHOLOGY AND GENOMIC MEDICINE [address] [place] [address] * Echocardiogram transesophageal (07/28/2017 4:28 PM) Specimen [place] [address] Narrative Transesophageal Echo Report [address] [place], [place] [address] , [place] [address] Pat.Name:HILARIO AGUILARKatarzyna.ID:[id number] St.Date: 07/28/2017Refer.MD:HILARIO MATHIS MD Exam Time: 3:56:00 PMStudy Type:YELITZA Height:69inWeight:196lb BSA: 2.05 m2 DOBAge:1950 ,66Y Sex: MALEBP: 150/52 HR:53 bpmSonogrphr: Nena Orozco DO Colón. Stat.:Inpatient Study Status:Final Echo Event ID:[id number] Order ID:[id number] Reason for Study:EVAL FOR CARDIOVASCULAR SOURCE OF EMBOLUS WITH NO IDENTIFIED NONCARDIAC SOURCE. CRYPTOGENIC EMBOLIC STROKE History / Clinical:Diabetes, Hyperlipidemia, Hypertension Procedures:Transesophageal Echo with Colorflow Doppler Race:C SUMMARY: No thrombus or mass is visualized in the LA or LA appendage. Moderate atherosclerotic changes seen in the descending aorta. No intracardiac shunt detected on saline bubble study. FINDINGS: YELITZA:The attending insurance adjuster performed the YELITZA procedure and waspresent for [...] Anesthesia: OtherASA Class: 4 Physician: Sonu Urrutia M.D.Pattern Scratcher: Nena Orozco DO Pre TEEBP HR Post YELITZA BP HR 150/52 53 159/52 60 Meds:Viscous xylocaine, Cetacaine spray to oropharynx, Per Anesthesia Complications: None Condition: Stable MEASUREMENTS: 2D Parasternal [place] Ao Rtd 3.8 cm Signed 07/28/2017 05:37 PM Sonu Urrutia M.D. Procedure Note Interface, Radiology Results In - 07/28/2017 5:37 PM CDT Transesophageal Echo Report [address] [place], [place], [place] [address] Pat.Name: HILARIO AGUILAR Pat.ID: [id number] .Date: 07/28/2017 Refer.MD: HILARIO MATHIS MD Exam Time: 3:56:00 PM Study Type:YELITZA Height: 69in Weight: 196lb BSA: 2.05 m2 Age: 1 1950,66Y Sex: MALE BP: 150/52 HR: 53 bpm Sonogrphr: Nena Orozco DO Pat. Stat.:Inpatient Study Status:Final Echo Event ID:[id number] Order ID: [id number] Reason for Study:EVAL FOR CARDIOVASCULAR SOURCE OF EMBOLUS WITH NO IDENTIFIED NONCARDIAC SOURCE. CRYPTOGENIC EMBOLIC STROKE History / Clinical:Diabetes, Hyperlipidemia, Hypertension Procedures:Transesophageal Echo with Colorflow Doppler Race: C SUMMARY: No thrombus or mass is visualized in the LA or LA appendage. Moderate atherosclerotic changes seen in the descending aorta. No intracardiac shunt detected on saline bubble study. FINDINGS: YELITZA: The attending insurance adjuster performed the YELITZA procedure and was present [...] ASA Class: 4 Physician: Sonu Urrutia M.D. Pattern Scratcher: Nena Orozco DO Pre YELITZA BP HR Post YELITZA BP HR 150/52 53 159/52 60 Meds: Viscous xylocaine, Cetacaine spray to oropharynx, Per Anesthesia Complications: None Condition: Stable MEASUREMENTS: 2D Parasternal [place] Ao Rtd 3.8 cm Signed 07/28/2017 05:37 [...] Contrast (07/27/2017 1:00 PM) Specimen Performing Laboratory [address] [address] Narrative EXAMINATION:MRI BRAIN WO CONTRAST CLINICAL HISTORY:NEURO [...] different vascular distributions likely due to emboli. [id number] Procedure Note Hm Interface, Radiology Results Incoming - 07/27/2017 1:33 [...] different vascular distributions likely due to emboli. [facility]-[id number] * MRA Head Wo Contrast (07/27/2017 12:38 PM) Specimen Performing Laboratory [facility] [address] [place] [address] Narrative EXAMINATION:MRA HEAD WO CONTRAST CLINICAL HISTORY:STROKE COMPARISON:CT of the head dated July 26, 2017 TECHNIQUE: Head MRA using 3D astc-lm-cgrmad technique with multi-planar MIP and 3D reconstruction. [...] The posterior commuting arteries bilaterally are patent. [facility]-[id number] Procedure Note Interface, Radiology Results Incoming - 07/27/2017 1:15 PM CDT EXAMINATION: MRA HEAD WO CONTRAST CLINICAL HISTORY: STROKE COMPARISON: CT of the head dated July 26, 2017 TECHNIQUE: Head MRA using 3D pgxl-st-tebwss technique with multi-planar MIP and 3D reconstruction. [...] The posterior commuting arteries bilaterally are patent. [facility]-[id number] * Urinalysis screen and microscopy, with reflex [...] None seen UA Specimen Performing Laboratory Urine [facility] DEPARTMENT OF PATHOLOGY AND GENOMIC MEDICINE [address] [place] [address] * Urine culture (07/27/2017 7:28 AM) Component Value Ref Range Urine culture SEE COMMENTComment: Bacteriuria screen negative. Specimen Performing Laboratory [facility] DEPARTMENT OF PATHOLOGY AND [facility] MEDICINE [address] [place] [address] * Echocardiogram complete w contrast and 3D if needed (07/27/2017 6:30 AM) [facility] [address] [place] [address] Narrative Echocardiography Report [address] [place] [address] Pat.Name:Patience AGUILAR.ID:[id number] .Date: 07/27/2017Refer.MD:HILARIO MATHIS MD Exam Time: 5:46:00 AMStudy Type:Routine Echo Height:69inWeight:196lb BSA: 2.05 m2 DOBAge:1950 ,66Y Sex: MALEBP: 140/51 HR:45 bpmSonogrphr: Lorin Quinones RDCS, RVT Pat. Stat.:Inpatient Room:- Study Status:Final Echo Event ID:[id number] Order ID:[id number] Reason for Study:Stroke History / Clinical:Diabetes, Hyperlipidemia, [...] PA systolic pressure. MEASUREMENTS: 2D Parasternal [place] LVOT 2.3 cmLA Ds 3.4 cm LVIDd5.2 cmIndex 2.5 cm/m Ao An2.4 cm LVIDs3.6 cmAo Rtd 3.5 cm Index1.7 cm/m LV%fs 30.8 % LV Ujat084 g(122-174) IVSd 1.3 cmLVM Index 143.4 g/m2 [...] - 07/27/2017 8:33 AM CDT Echocardiography Report [id number] [address] Pat.Name: HILARIO AGUILAR Pat.ID: [id number] St.Date: 07/27/2017 Refer.MD: HILARIO MATHIS MD Exam Time: 5:46:00 AM Study Type:Routine Echo Height: 69in Weight: 196lb BSA: 2.05 m2 Age: 1 1950,66Y Sex: MALE BP: 140/51 HR: 45 bpm Sonogrphr: Lorin Quinones RDCS, RVT Pat. Stat.:Inpatient Room: [place] [address] Study Status:Final Echo Event ID:[id number] Order ID: [id number] Reason for Study:Stroke History / Clinical:Diabetes, Hyperlipidemia, [...] PA systolic pressure. MEASUREMENTS: 2D Parasternal [place] LVOT 2.3 cm LA Ds 3.4 cm [...] Peck MD * INTUBATION (07/26/2017 11:59 PM) Narrative Jenni Hernandez MD 07/26/2017 11:59 PM Intubation Date/Time: 07/26/2017 11:56 PM Performed by: JENNI HERNANDEZ Authorized by: JENNI HERNANDEZ Consent: Consent obtained:Written Consent given by:Spouse Risks discussed:Aspiration, brain injury, laryngeal injury, dental trauma, hypoxia, , bleeding and pneumothorax Alternatives discussed:No treatment [facility] protocol: Patient identity confirmed:Arm band and hospital-assigned [...] puncture, incorrect placement, bleeding, infection and pneumothorax [facility] protocol: Procedure explained and questions answered to [...] - 10 mm/hr Specimen Performing Laboratory Blood [facility] DEPARTMENT OF PATHOLOGY AND GENOMIC MEDICINE [address] [place] [address] * Prothrombin time with INR (07/26/2017 10:00 PM) Component Value Ref Range Prothrombin time 14.0 12.0 - 15.0 sec INR 1.1 Comment: The International Normalized Ratio (INR) is a therapeutic monitoring tool for patients who are stable on oral anticoagulant therapy. An INR of 2.0-3.0 is suggested for deep vein thrombosis/pulmonary embolism. Specimen Performing Laboratory Blood [facility] DEPARTMENT OF PATHOLOGY AND GENOMIC MEDICINE [address] [place] [address] * Fibrinogen (07/26/2017 10:00 PM) Component Value Ref Range Fibrinogen 349 200 - 450 mg/dL Specimen Performing Laboratory Blood [facility] DEPARTMENT OF PATHOLOGY AND GENOMIC MEDICINE [address] [place] [address] * Hemoglobin A1c (07/26/2017 10:00 PM) Component [...] type 1 diabetes. Specimen Performing Laboratory Blood [facility] DEPARTMENT OF PATHOLOGY AND GENOMIC MEDICINE [address] [place] [address] * Surgical pathology request (07/26/2017 3:40 PM) Only the most recent of 3 results within the time period is included. Component Value Ref Range Surgical pathology report See link below for PDF Lab Report Specimen Performing Laboratory [facility] DEPARTMENT OF PATHOLOGY AND [facility] MEDICINE [address] [place] [address] * IR Perq Art M-Thrombect NFS (07/26/2017 2:39 PM) Specimen Performing Laboratory [place] [id number] Narrative Clinical History: 66-year-old male who was [...] Initial posttreatment left internal carotid injection shows mandaeism of flow into the middle cerebral artery [...] clot was again forming in this region. [facility]-[id number] Procedure Note Hm Interface, Radiology Results Incoming - 07/26/2017 6:39 PM [...] Initial posttreatment left internal carotid injection shows mandaeism of flow into the middle cerebral artery [...] clot was again forming in this region. [facility]-[id number] * CT Stroke Brain Wo Contrast (07/26/2017 1:19 PM) Specimen Performing Laboratory [facility] [address] [place] [address] Narrative EXAMINATION: CT STROKE BRAIN WO CONTRAST [...] with endovascular neuroradiologist at time of dictation. [facility]-[id number] Procedure Note Interface, Radiology Results Incoming - [...] with endovascular neuroradiologist at time of dictation. [facility]-[id number] * CTA Neck W Wo Contrast (07/26/2017 1:18 PM) Specimen Performing Laboratory [facility] [address] [place] [address] Narrative EXAMINATION:CT ANGIOGRAM NECK W WO CONTRAST [...] the right. Otherwise no vessel stenosis demonstrated. [facility]-[id number] Procedure Note Interface, Radiology Results Incoming - [...] the right. Otherwise no vessel stenosis demonstrated. [facility]-[id number] * CTA Head W Wo Contrast (07/26/2017 1:16 PM) Specimen Performing Laboratory [facility] [address] [place] [address] Narrative EXAMINATION: CT ANGIOGRAM HEAD W WO [...] of dictation at 1330 hours on 07/26/2017. [facility]-[id number] Procedure Note Interface, Radiology Results Incoming - [...] of dictation at 1330 hours on 07/26/2017. [facility]-[id number] * Thyroid stimulating hormone (07/26/2017 12:53 PM) Component Value Ref Range TSH 0.75 0.27 - 4.20 uIU/mL Specimen Performing Laboratory Plasma specimen [facility] DEPARTMENT OF PATHOLOGY AND GENOMIC MEDICINE [address] [place] [address] * T4, free (07/26/2017 12:53 PM) Component Value Ref Range T4, free 1.1 0.9 - 1.7 ng/dL Specimen Performing Laboratory Plasma specimen [facility] DEPARTMENT OF PATHOLOGY AND GENOMIC MEDICINE [address] [place] [address] * Lipid panel (07/26/2017 12:53 PM) Component [...] (>=200 mg/dL) Specimen Performing Laboratory Plasma specimen [facility] DEPARTMENT OF PATHOLOGY AND [address] [address] * Syphilis treponemal IgG (07/26/2017 12:21 PM) Component Value Ref Range Syphilis treponemal IgG Non-reactiveComment: Non-reactive: No serological Non-reactive evidence of Syphilis infection Specimen Performing Laboratory Serum [facility] [address] [address] * HIV 1, 2 antibody (07/26/2017 12:21 PM) Component Value Ref Range HIV 1, 2 antibody Non-reactive Non-reactive Comment: Starting from January 06 2016, 4th generation HIV screening and confirmation assays are in use at [facility], consistent with the CDC-recommended algorithm. [...] on the testing algorithm, please refer to: http://stacks.cdc.gov/view/cdc/82275. Specimen Performing Laboratory Blood [facility] OF PATHOLOGY AND [facility] [address] [place] [address] * Folate level (07/26/2017 12:21 PM) Component Value Ref Range Folate 10.1 4.8 - 24.2 ng/mL Specimen Performing Laboratory Serum [facility] PATHOLOGY AND [facility] [address] [place] [address] * Vitamin B12 level (07/26/2017 12:21 PM) Component Value Ref Range Vitamin B12 329 211 - 946 pg/mL Comment: Significant overlap exists between normal and deficiency states. However, most patients with deficiencies will have Serum B12 <200 pg/mL. Specimen Performing Laboratory Serum [facility] PATHOLOGY AND [facility] MEDIC[facility] [address] [place] [address], [place] [address] * XR Pelvis 1 Or 2 Vw (07/26/2017 9:29 AM) Only the most recent of 3 results within the time period is included. Specimen Performing Laboratory [facility] [address] [place] [address] Narrative EXAMINATION:XR PELVIS 1 OR 2 VW [...] There is pre-existing intact left hip prosthesis. after 02/26/2017 Insurance Payer Benefit Subscriber ID Type Phone Address Plan / Group MEDICARE MEDICARE xxxxxxxxxx Medicare [place], [place] PART A AND B [employer] xxxxxxxxxx [employer] [facility] [place] [address]
--- OUTSIDE RECORDS SUMMARY | 2018-02-27 13:59 | XMS REPORT | Continuity of Care Document ---
Author Author [facility] Organization [facility] Address [address] [place] [address] Phone Unavailable Care Team Providers Care Business Administrator Name Role Phone JESÚS MARTINEZ MD PCP Insurance Providers Guarantor Hilario Marsh Jr Address [address] [place] [address] Payer Medicare A & B Policy Number [id number] Subscriber's Name Hilario Marsh Jr Relationship 18 Self / Same As Patient Group Number [id number] Group Name RETIRED Effective Date 13 Payer Aet Medicare Supplement Plan Policy Number [id number] Subscriber's Name Hilario Marsh Jr Relationship 18 Self / Same As Patient Advance Directives Directive Response Recorded Date/Time Does the patient have an advance directive? No 10/07/17 3:41am If yes, is advance directive on file with [facility]? No 06/30/09 1:49am If not on file with [facility] will patient provide a copy? Yes 10/06/17 7:47pm Do you have a Directive to Physician? No 01/04/18 1:25pm Do you have a Medical Power of Front End Mechanic? No 01/04/18 1:25pm Do you have an out of hospital Do Not Resuscitate Order? No 01/04/18 1:25pm Do you have any special needs we should be aware of? No 01/04/18 1:25pm Do you have a support person here with you today? Yes 01/04/18 1:25pm Did patient receive Notice of Privacy Practices? Yes 01/04/18 1:25pm Did patient receive patient rights and responsibilities? Yes 01/04/18 1:25pm Problems Medical Problem Onset Date Status Dislodged [...] information available. Plan of Care Discharge Date 01/04/18 3:49pm Disposition HOME, SELF-CARE Condition at Discharge Stable Instructions/Education Provided Fall Prevention Forms Provided Work/School Excuse Prescriptions See Medication Section Referrals JESÚS MARTINEZ MD Address: [address] [place] [phone] Additional Instructions/Education FOLLOW UP WITH YOUR PCP WITHING NEXT 2-3 DAYS FOLLOW FALL PREVENTION PRECATIONS RETURN TO ER IF FEVER OVER 100.4 NOT RELIEVED BY MEDICATIONS, CHEST PAIN OR ONSET OF NEW ABNORMAL SYMPTOMS Functional Status No functional status information available. Allergies, Adverse Reactions, Alerts Allergen Type Severity Reaction Status Last Updated Penicillin Allergy Mild Active 01/04/18 Immunizations No immunization information available. Vital Signs Acute Vital Signs Vital Response Date/Time Temperature (Fahrenheit) 98.0 degrees F (97.6 - 99.5) 01/04/2018 3:39pm Pulse Pulse Rate (adult) 85 bpm (60 - 90) 01/04/2018 3:39pm Respiratory Rate 18 bpm (12 - 24) 01/04/2018 3:39pm Blood Pressure 132/66 mm Hg 01/04/2018 3:39pm Height 5 ft 8 in 01/04/2018 12:45pm Weight 174 lb 01/04/2018 12:45pm Body Mass Index 26.5 kg/m^2 01/04/2018 12:45pm Results Laboratory Results Test Name Result Units Flags Reference Collection Date/Time Result Date/ Time Comments Bedside Glucose 127 mg/dL H 70-120 10/07/2017 12:14pm 10/07/2017 12: 26pm Meter ID: [id number] White Blood Count 7.26 x10e3/uL 4.8-10.8 01/04/2018 12:44pm 01/04/2018 1:29pm Red Blood Count 4.68 x10e6/uL 4.3-5.7 01/04/2018 12:44pm 01/04/2018 1: 29pm Hemoglobin 13.7 g/dL L 14.0-18.0 01/04/2018 12:44pm 01/04/2018 1:29pm Hematocrit 42.0 % 38.2-49.6 01/04/2018 12:44pm 01/04/2018 1:29pm Mean Corpuscular Volume 89.7 fL 81-99 01/04/2018 12:44pm 01/04/2018 1: 29pm Mean Corpuscular Hemoglobin 29.3 pg 28-32 01/04/2018 12:44pm 2017 1:29pm Mean Corpuscular Hemoglobin Concent 32.6 g/dL 31-35 01/04/2018 12:44pm 01/04/2018 1:29pm Red Cell Distribution Width 17.8 % H 11.7-14.4 01/04/2018 12:44pm 2017 1:29pm Platelet Count 277 x10e3/uL 140-360 01/04/2018 12:44pm 01/04/2018 1: 29pm Neutrophils (%) (Auto) 54.2 % 38.7-80.0 01/04/2018 12:44pm 01/04/2018 1 :29pm Lymphocytes (%) (Auto) 32.5 % 18.0-39.1 01/04/2018 12:44pm 01/04/2018 1 :29pm Monocytes (%) (Auto) 8.1 % 4.4-11.3 01/04/2018 12:44pm 01/04/2018 1: 29pm Eosinophils (%) (Auto) 3.9 % 0.0-6.0 01/04/2018 12:44pm 01/04/2018 1: 29pm Basophils (%) (Auto) 0.6 % 0.0-1.0 01/04/2018 12:44pm 01/04/2018 1: 29pm IM GRANULOCYTES % 0.7 % 0.0-1.0 01/04/2018 12:44pm 01/04/2018 1:29pm Neutrophils # (Auto) 3.9 2.1-6.9 01/04/2018 12:44pm 01/04/2018 1: 29pm Lymphocytes # (Auto) 2.4 1.0-3.2 01/04/2018 12:44pm 01/04/2018 1: 29pm Monocytes # (Auto) 0.6 0.2-0.8 01/04/2018 12:44pm 01/04/2018 1:29pm Eosinophils # (Auto) 0.3 0.0-0.4 01/04/2018 12:44pm 01/04/2018 1: 29pm Basophils # (Auto) 0.0 0.0-0.1 01/04/2018 12:44pm 01/04/2018 1:29pm Absolute Immature Granulocyte (auto 0.05 x10e3/uL 0-0.1 01/04/2018 12: 44pm 01/04/2018 1:29pm Prothrombin Time 13.6 seconds 11.9-14.5 01/04/2018 12:44pm 01/04/2018 1 :30pm Prothromb Time International Ratio 1.13 01/04/2018 12:44pm 2017 1:30pm Oral Anticoagulant Therapy INR Values: 1. Low Intensity Therapy 1.5 - 2.0 2. Moderate Intensity Therapy 2.0 - 3.0 3. High Intensity Therapy(1) 2.5 - 3.5 4. High Intensity Therapy(2) 3.0 - 4.0 5. Panic Value INR > 5.0 Activated Partial Thromboplast Time 29.7 seconds 23.8-35.5 01/04/2018 12 :44pm 01/04/2018 1:30pm Sodium Level 141 mmol/L 136-145 01/04/2018 12:44pm 01/04/2018 1:39pm Potassium Level 3.6 mmol/L 3.5-5.1 01/04/2018 12:44pm 01/04/2018 1: 39pm Chloride Level 104 mmol/L 98-107 01/04/2018 12:44pm 01/04/2018 1:39pm Carbon Dioxide Level 27 mmol/L 22-29 01/04/2018 12:44pm 01/04/2018 1: 39pm Anion Gap 13.6 mmol/L 8-16 01/04/2018 12:44pm 01/04/2018 1:39pm Blood Urea Nitrogen 27 mg/dL H 7-01/04/2018 12:44pm 01/04/2018 1: 39pm Creatinine 1.04 mg/dL 0.72-1.25 01/04/2018 12:44pm 01/04/2018 1:39pm BUN/Creatinine Ratio 26 H 6-25 01/04/2018 12:44pm 01/04/2018 1:39pm Estimat Glomerular Filtration Rate > 60 ML/MIN 60- 01/04/2018 12:44pm 01/04/2018 1:39pm Ranges were taken from the National Kidney Disease Education Program and the National Kidney Foundation literature. Reference ranges: 60 or greater: Normal 16-59 (for 3 consecutive months): Chronic kidney disease 15 or less: Kidney failure Glucose Level 249 mg/dL H 74-118 01/04/2018 12:44pm 01/04/2018 1:39pm Calcium Level 10.3 mg/dL H 8.4-10.2 01/04/2018 12:44pm 01/04/2018 1: 39pm Total Bilirubin 0.4 mg/dL 0.2-1.2 01/04/2018 12:44pm 01/04/2018 1:39pm Aspartate Amino Transf (AST/SGOT) 7 IU/L 5-34 01/04/2018 12:44pm 2017 1:39pm Alanine Aminotransferase (ALT/SGPT) 7 IU/L 0-55 01/04/2018 12:44pm 1:39pm Total Protein 7.2 g/dL 6.5-8.1 01/04/2018 12:44pm 01/04/2018 1:39pm Albumin 3.7 g/dL 3.5-5.0 01/04/2018 12:44pm 01/04/2018 1:39pm Globulin 3.5 g/dL 2.3-3.5 01/04/2018 12:44pm 01/04/2018 1:39pm Albumin/Globulin Ratio 1.1 0.8-2.0 01/04/2018 12:44pm 01/04/2018 1: 39pm Alkaline Phosphatase 58 IU/L 40-150 01/04/2018 12:44pm 01/04/2018 1: 39pm Procedures Procedure Status Date Provider(s) CHANGE GASTROSTOMY TUBE Completed 10/05/17 LEXIS BARGER MD CHANGE GASTROSTOMY TUBE Completed 10/05/17 LEXIS BARGER MD Computed tomography of brain without radiopaque contrast Active 12/10/17 ELVIS REED NP Computed tomography of cervical spine without contrast Active 12/10/17 ELVIS REED NP Computed tomography of brain without radiopaque contrast Active 01/04/18 OBED VILELGAS MD Encounters Encounter Location Arrival/Admit Date Discharge/Depart Date Attending Provider Departed Emergency Room [facility] 01/04/18 12:37pm 01/04 3:49pm OBED VILLEGAS MD Departed Emergency Room [facility] 12/10/17 5:40pm 9:58pm ABDIAS SIMMONS MD Registered [facility]erred [facility] 11/21/17 12:42pm JAXSON SOSA MD Registered [facility]erred [facility] 10/31/17 10:37am JAXSON SOSA MD Registered [facility]erred [facility] 10/20/17 10:35am JAXSON SOSA MD Discharged Inpatient (obs) [facility] 10/07/17 12:17am 2:55pm JAXSON SOSA MD Departed Emergency Room [facility] 10/05/17 4:58pm 5:07pm LEXIS BARGER MD Departed Emergency Room [facility] 10/05/17 7:49am 10:20am LEXIS BARGER MD
[2018-02-27] MEDS ORDERED: DIATRIZOATE MEGL/DIATRIZOA SOD 30 ML BTL PO ONE (16:55)
[2018-02-27 17:44] VITALS: BP 107/72
--- NOTE | 2018-02-27 17:49 | Diagnostic Imaging Report ---
PROCEDURE:X-RAY ABDOMEN - KUB COMPARISON:None. INDICATIONS:post g tube replacement FINDINGS: See conclusions. CONCLUSION: Administration of contrast through PEG tube. No extraluminal contrast or evidence of leak. Contrast opacifies distal stomach up to the third portion of duodenum. Nonobstructive bowel gas pattern. Dictated by: Mac Gentile M.D. on 02/27/2018 at 17:52 Electronically approved by: Mac Gentile M.D. on 02/27/2018 at 17:52
== END 2018-02-27 19:05 | disposition home or self-care (01) ==
LOC: ER 13:56
DX: Z43.1 Encounter for attention to gastrostomy (principal); I10 Essential (primary) hypertension; E11.9 Type 2 diabetes mellitus without complications; I50.9 Heart failure, unspecified; Z86.73 Personal history of transient ischemic attack (TIA), and cerebral infarction without residual deficits
CPT/HCPCS: 74018; 99284

== ENCOUNTER 2018-02-28 09:03 | Emergency (ER) | payer MEDICARE, OTHER ==
[~2018-02-28] VITALS: Ht 172.7 cm; Wt 78.9 kg
--- OUTSIDE RECORDS SUMMARY | 2018-02-28 09:05 | XMS REPORT | Clinical Summary ---
Author Author [facility] Address Unknown Phone Unavailable Care Team Providers Care Psychiatrist Name Role Phone Asked, Pcp PCP Unavailable [...] Overview: Added automatically from request for surgery [id number] Osteoarthritis of left hip 03/08/2017 Encounters Date [...] Hilario Mathis MD TOTAL HIP ARTHROPLASTY after 02/27/2017 Immunizations Name Dates Previously Given Next Due [...] PNEUMOCOCCAL-13 Completed 03/09/2017 Implants Implanted Type Area Gut Snatcher Device Expiration Model / Identifier Date Serial / Lot Device Vasclr Clsr Vasoactive Cardiovasc N/A: N/A 05/09/2018 [id number] / Intstnl Peptd 6fr Angio-Seal - ular / [id number] Implants [id number] Implanted: 07/26/2017 (Quantity not on file) Device Vasclr Clsr Vasoactive Cardiovasc N/A: N/A 12/07/2017 [id number] / Intstnl Peptd 8fr Angio-Seal - ular / [id number] Implants [id number] Implanted: 07/26/2017 (Quantity not on file) Head Fml Sld Modlr Co-Cr 40x-6mm Hip Joint Left: Hip [employer] INC 08/10 [id number] / [id number] - [id number] Implants / Implanted: Qty: 1 on 03/08/2017 by [id number] Hilario Mathis MD G7 Osseoti 4 Hole Shell 56mm F - IPM Left: Hip [employer], INC 2025 [id number] IMPLANT / Implanted: Qty: 1 on 03/08/2017 by TONIO / Hilario Mathis MD [id number] Liner G7 Neutral Arcomxl G40 - IPM Left: Hip [employer] INC 07/10/2021 [id number] IMPLANT / Implanted: Qty: 1 on 03/08/2017 by TONIO / Hilario Mathis MD [id number] Tprlc 133 Type1 Pps So 10.0 IPM Left: Hip [employer] INC 01/08/2027 51 [id number] Taperloc Complete Stem - [id number] IMPLANT / Implanted: Qty: 1 on 03/08/2017 by TONIO / Hilario Mathis MD [id number] G7 Osseoti Ltd Hole Shell 54mm - IPM Right: Hip [employer], INC 2026 [id number] IMPLANT / Implanted: Qty: 1 on 07/26/2017 by TONIO / Hilario Mathis MD [id number] G7 Neutral E1 Liner 40mm F - IPM Right: Hip [employer] 01/22/2022 [id number] IMPLANT / Implanted: Qty: 1 on 07/26/2017 by TONIO / Hilario Mathis MD [id number] Tprlc 133 Fp Type1 Pps So 8.0, IPM Right: Hip [employer] 04/09/2027 51 [id number] Taperloc Complete Stem - [id number] IMPLANT / Implanted: Qty: 1 on 07/26/2017 by DEVICES / Hilario Mathis MD [id number] Head Feml Ceramc Type 1 Taperd Orthopedic Right: Hip [employer] INC 03/10 650 1058 / Option 40mm Biolox Delta - Trauma / [id number] Implants [id number] Implanted: Qty: 1 on 07/26/2017 by Hilario Mathis MD Catheter [id number] Reperfusion High Surgical N/A: N/A Vid[employer] INC [id number] Flow Tubing 6.0f 132cm - [id number] Implants; KIT / Implanted: 07/26/2017 (Quantity not Expanders; / on file) Extenders; Surgical Wires Device Revasclrzn Flow Rstrtn Surgical N/A: N/A EV3 INC SFR3 4 20 20x4mm Solitaire - [id number] Implants; 10 / Implanted: 07/26/2017 (Quantity not Expanders; / on file) Extenders; Surgical Wires Neuron Select 5f 130 [place] - Surgical N/A: N/A [employer] INC [id number] Implants; R / Implanted: 07/26/2017 (Quantity not [...] CDT procedure are in the COLOR DOPPLER (53724) results section. INTUBATION Routine 07/26/2017 Localized osteoarthrosis Results for this 11:59 PM CDT of left hip procedure are in the Cerebrovascular accident results section. 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 artery ARTHROPLASTY, HIP, TOTAL 07/26/2017 Localized osteoarthrosis 8:15 AM CDT of left hip Special Needs GRANT BIOMET KS AN SPINAL BLOCK Routine 07/26/2017 PROCEDURE FOR [...] Beth toussaint: DUY CUEVA Performed by: Anesthesio norbetr patient identified , IV checked, site and [...] complicati ons and patient tolerated procedure well KS AN SPINAL BLOCK Routine 07/26/2017 POST-OP PAIN [...] complicati ons and patient tolerated procedure well KS AN ELECTIVE Routine 03/08/2017 ENDOTRACHEAL AIRWAY 8:17 [...] 1 Easy atraumatic intubation . Dentition unchanged KS AN SPINAL BLOCK Routine 03/08/2017 PROCEDURE FOR [...] RPM- 22ga quincke-3. 5", pt tolerated well KS AN SPINAL BLOCK Routine 03/08/2017 POST-OP PAIN [...] BIOMET GRANT Special Needs BIOMET GRANT after 02/27/2017 Results * POC glucose (08/09/2017 3:49 PM) Only the most recent of 92 results within the time period is included. Component Value Ref Range POC glucose 182 (H) 65 - 99 mg/dL Comment: COUNT INCLUDES THE [facility] Notified RN Meter ID: [id number] Bag Repairer: Suzan Gayle Specimen Performing Laboratory [facility] DEPARTMENT OF PATHOLOGY AND GENOMIC MEDICINE [address] [place] [address] * XR Hip 2-3 View Left (08/09/2017 11:28 AM) Specimen Performing Laboratory [facility] [address] [place], [place] [id number] Narrative EXAMINATION:XR HIP 2-3 VIEWS LEFT CLINICAL HISTORY:Post Op, post op evaluation prior to transfer to facility COMPARISON:None. IMPRESSION: Left total hip arthroplasty is in place. There is no evidence of hardware fracture or dislocation. [facility]-[id number] Procedure Note Interface, Radiology Results Incoming - 08/09/2017 11:42 AM CDT EXAMINATION: XR HIP 2-3 VIEWS LEFT CLINICAL HISTORY: Post Op, post op evaluation prior to transfer to facility COMPARISON: None. IMPRESSION: Left total hip arthroplasty is in place. There is no evidence of hardware fracture or dislocation. [facility]-[id number] * XR Chest 1 Vw Portable (08/09/2017 5:01 AM) Only the most recent of 15 results within the time period is included. Specimen Performing Laboratory [facility] [address] [place] [address] Narrative EXAMINATION:XR CHEST 1 VW PORTABLE CLINICAL HISTORY: Ventilator Patient COMPARISON:08/08/2017 IMPRESSION: Support lines and tubes remain in stable position. Cardiomediastinal silhouette is stable. Pulmonary vasculature is top normal.No focal infiltrate, effusion or pneumothorax seen. [facility]-[id number] Procedure Note Interface, Radiology Results Incoming - 08/09/2017 6:13 AM CDT EXAMINATION: XR CHEST 1 VW PORTABLE CLINICAL HISTORY: Ventilator Patient COMPARISON: 08/08/2017 IMPRESSION: Support lines and tubes remain in stable position. Cardiomediastinal silhouette is stable. Pulmonary vasculature is top normal. No focal infiltrate, effusion or pneumothorax seen. [facility]-[id number] * Ionized calcium, arterial (08/09/2017 4:15 AM) Only the most recent of 14 results within the time period is included. Component Value Ref Range Ionized calcium, arterial 1.21 1.11 - 1.32 mmol/L Specimen Performing Laboratory Blood [facility] DEPARTMENT OF PATHOLOGY AND GENOMIC MEDICINE [address] [place] [address] * CBC hemogram (08/09/2017 4:15 AM) Only [...] 0.00 /100 WBC Specimen Performing Laboratory Blood [facility] DEPARTMENT OF PATHOLOGY AND GENOMIC MEDICINE [address] [place] [address] * Arterial blood gas (08/09/2017 4:15 AM) [...] - 100 % Specimen Performing Laboratory Blood [facility] DEPARTMENT OF PATHOLOGY AND [address] [address] * Estimated GFR (08/09/2017 4:00 AM) Only [...] and Americans. Specimen Performing Laboratory Plasma specimen [facility] DEPARTMENT OF PATHOLOGY AND [address] [address] * Phosphorus level (08/09/2017 4:00 AM) Only the most recent of 17 results within the time period is included. Component Value Ref Range Phosphorus 3.3 2.4 - 4.5 mg/dL Specimen Performing Laboratory Plasma specimen [facility] DEPARTMENT OF PATHOLOGY AND [address] [address] * Magnesium level (08/09/2017 4:00 AM) Only the most recent of 18 results within the time period is included. Component Value Ref Range Magnesium 2.7 (H) 1.6 - 2.4 mg/dL Specimen Performing Laboratory Plasma specimen [facility] DEPARTMENT OF PATHOLOGY AND [facility] [address] [place] [address] * Basic metabolic panel (08/09/2017 4:00 AM) [...] 10.2 mg/dL Specimen Performing Laboratory Plasma specimen [facility] DEPARTMENT OF PATHOLOGY AND GENOMIC MEDICINE [address] [place] [address] * ECG 12 lead (08/08/2017 12:05 PM) Only the most recent of 3 results within the time period is included. Component Value Ref Range Ventricular rate 66 Atrial rate 66 KS interval 134 QRSD interval 90 QT interval 402 QTC interval 421 P axis 1 39 QRS axis 1 -64 T wave axis 64 EKG impression Normal sinus rhythm-Left anterior fascicular block-Anteroseptal infarct , age undetermined-Possible lateral infarct as cited before-Abnormal ECG-In automated comparison with ECG of 29-JUL-2017 16:56,-Anteroseptal infarct is now present-Questionable change in initial forces of Anterior leads- Specimen Performing Laboratory [facility] MUSE [address] [place] [address] * Potassium level (08/07/2017 6:05 PM) Only the most recent of 3 results within the time period is included. Component Value Ref Range Potassium 4.0 3.5 - 5.0 mEq/L Specimen Performing Laboratory Plasma specimen [facility] DEPARTMENT OF PATHOLOGY AND GENOMIC MEDICINE [address] [place] [address] * CT Head Wo Contrast (08/07/2017 4:01 AM) Only the most recent of 5 results within the time period is included. Specimen Performing Laboratory [facility] [address] [place] [address] Narrative EXAMINATION:CT HEAD WO CONTRAST COMPARISON:06 August [...] unchanged in size. IMPRESSION: No interval change. [facility]-[id number] Procedure Note Interface, Radiology Results Incoming - [...] unchanged in size. IMPRESSION: No interval change. [facility]-[id number] * Partial thromboplastin time, activated (08/07/2017 2:40 AM) Only the most recent of 10 results within the time period is included. Component Value Ref Range PTT 35.6 23.0 - 36.0 sec Comment: PTT therapeutic range for unfractionated heparin is 61.0-112.0 seconds which corresponds to Anti-Xa 0.3-0.7 U/ml. Specimen Performing Laboratory Blood [facility] DEPARTMENT OF PATHOLOGY AND [facility] [address] [place] [address] * Comprehensive metabolic panel (08/06/2017 1:52 AM) [...] 6.0 (L) 6.3 - 8.3 g/dL Comment: [place] 4.6-7.0 g/dL 1 week 4.4-7.6 g/dL 7 [...] 1.2 mg/dL Specimen Performing Laboratory Plasma specimen [facility] DEPARTMENT OF PATHOLOGY AND [facility]IC[facility] [address] [place] [address] * CBC with platelet and differential (08/06/2017 [...] (promyelocytes, myelocytes, metamyelocytes) Specimen Performing Laboratory Blood [facility] DEPARTMENT OF PATHOLOGY AND GENOMIC MEDICINE [address] [place] [address] * Vancomycin level, trough (08/04/2017 11:30 AM) Component Value Ref Range Vancomycin, trough 13.5 10.0 - 20.0 ug/mL Comment: Therapeutic Ranges: Peak 30.0 - 40.0 ug/mL Trough 10.0 - 20.0 ug/mL Specimen Performing Laboratory Serum [facility] DEPARTMENT OF PATHOLOGY AND GENOMIC MEDICINE [address] [place] [address] * XR Abdomen 1 Vw Portable (08/03/2017 6:48 PM) Only the most recent of 3 results within the time period is included. Specimen Performing Laboratory [address] [address] Narrative EXAMINATION:XR ABDOMEN 1 VW PORTABLE CLINICAL HISTORY:Check dobhoff placement COMPARISON:August 02, 2017 IMPRESSION: Dobbhoff tube terminates in the distal stomach level, similar to prior. Bowel gas pattern is nonobstructive. [facility]-[id number] Procedure Note Interface, Radiology Results Incoming - 08/03/2017 6:54 PM CDT EXAMINATION: XR ABDOMEN 1 VW PORTABLE CLINICAL HISTORY: Check dobhoff placement COMPARISON: August 02, 2017 IMPRESSION: Dobbhoff tube terminates in the distal stomach level, similar to prior. Bowel gas pattern is nonobstructive. [facility]-[id number] * Transfuse RBC (08/03/2017 4:26 PM) * XR Picc Chest Portable (08/03/2017 2:08 PM) Specimen Performing Laboratory [facility] [address] [place] [address] Narrative EXAMINATION:XR PICC CHEST PORTABLE CLINICAL HISTORY:PICC line position verification COMPARISON:August 03, 2017 0300 hours chest IMPRESSION: Interval placement left PICC line catheter. Catheter tip superior vena cava level of T7. Endotracheal tube feeding tube and right IJ catheter unchanged. No pneumothorax. Central vascular prominence is stable Cardiomediastinal silhouette remains normal size with mild vascular ectasia [facility]-[id number] Procedure Note Interface, Radiology Results Incoming - [...] remains normal size with mild vascular ectasia [facility]-[id number] * PICC INSERTION (08/03/2017 1:17 PM) Narrative Angel Blas 08/03/20171:17 PM PICC insertion Date/Time: 08/03/2017 1:17 PM Performed by: MANDY PROCTOR Authorized by: LEYDA HUBER V Consent: Consent obtained:Verbal Consent given by:Patient (PT. 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 Location:Left brachial Site selection rationale:LIMITEDRIGHT ARM MOVEMENT Device Type:Non-valved Catheter size:5 Fr Unsuccessful Attempt(s): Location(s) Attempted:Left basilic Problems or complications:Unable to access vein PICC Characteristics: Catheter Brand:[employer] PICC External Catheter Length (cm):0 Internal Catheter Length (cm):43 Total Catheter Length (cm):43 Catheter Lot Number:[id number] Catheter Expiration Date:05/09/2019 Procedure Details: Landmarks identified: [...] Red Blood Cells -1, Leukored Unit number [id number] Product code [id number] Dispense status Transfused Blood expiration date 20170825 Blood type code 5100 Blood type O POSITIVE Product name Apheresis Red Cell AS3 #1 LR Unit number [id number] Product code [id number] Dispense status Transfused Blood expiration date 20170825 Blood type code 5100 Blood type O POSITIVE Specimen Performing Laboratory [facility] DEPARTMENT OF PATHOLOGY AND GENOMIC MEDICINE [address] [place] [address] * Type and screen (08/03/2017 10:15 AM) Only the most recent of 3 results within the time period is included. Component Value Ref Range ABO grouping O Rh type POS Antibody screen (gel) NEG Specimen Performing Laboratory Blood [facility] DEPARTMENT OF PATHOLOGY AND GENOMIC MEDICINE [address] [place] [address] * Insert arterial line (08/02/2017 11:35 PM) [...] Lingula Specimen Performing Laboratory Bronchial washing - [facility] DEPARTMENT OF PATHOLOGY AND GENOMIC MEDICINE [facility] [address] [place] [address] * Sputum culture (08/02/2017 3:08 PM) Only the most recent of 2 results within the time period is included. Component Value Ref Range Sputum culture isolate Normal oral aly isolated. Comment: Specimen Information Specimen Source: Sputum Specimen Site: Expectorated Specimen Performing Laboratory Sputum - Expectorated [facility] DEPARTMENT OF PATHOLOGY AND GENOMIC MEDICINE [address] [place] [address] * Gram stain (08/02/2017 3:08 PM) Only the most recent of 2 results within the time period is included. Component Value Ref Range Gram stain isolate Many WBC's No organisms seen Comment: Specimen Information Specimen Source: Sputum Specimen Site: Expectorated Specimen Performing Laboratory Sputum - Expectorated [facility] OF PATHOLOGY AND [facility] [address] [place] [address] * Pv transcranial Doppler intracranial arteries emboli detect w inj (08/02/2017 2:30 PM) Specimen Performing Laboratory [facility] [address] [place] [address] Narrative Vascular Ultrasound Laboratory Transcranial Doppler Report (TCD) [address] [place] [address] Pat.Name:Patience AGUILAR.ID:[id number] .Date: 08/02/2017Refer.MD:HILARIO MATHIS MD Exam Time: 2:54:00 PMStudy Type:TCD DOBAge:1950,66YSex: MALE Sonogrphr: Gianni Mosher RDMS, RVTPat. Stat.:Inpatient Room:NICU 1TapeVol: , CPT - 4: 48076, 51083Txcy Event ID:[id number] Order ID:[id number] Reason for Study:Acute pulmonary embolism and ischemic stroke (persistent occlusion of M1 segment of left MCA) s/p thrombectomy. History of left hip replacement, hypertension, type 2 diabetes, coronary arterial disease. 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 PHYSICIAN INTERPRETATION: 51163: Negative TCD bubble test. 72838: Mild stenosis in the right MCA.Suboptimal window on the left side. Both VA are antegrade. Signed 08/03/2017 07:31 AM Yousif Maurice MD, RPVI Procedure Note Interface, Radiology Results In - 08/03/2017 7:31 AM CDT Vascular Ultrasound Laboratory Transcranial Doppler Report (TCD) [address] [place] [address] Pat.Name: HILAIRO AGUILAR Pat.ID: [id number] .Date: 08/02/2017 Refer.MD: HILARIO MATHIS MD Exam Time: 2:54:00 PM Study Type:TCD Age: 1 1950,66Y Sex: MALE Sonogrphr: Gianni Mosher RDMS, RVT Pat. Stat.:Inpatient Room: [facility] 1 Tape Vol: ST, CPT - 4: 53552, 38698 Echo Event ID:[id number] Order ID: [id number] Reason for Study:Acute pulmonary embolism and ischemic stroke (persistent occlusion of M1 segment of left MCA) s/p thrombectomy. History of left hip replacement, hypertension, type 2 diabetes, coronary arterial disease. 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 PHYSICIAN INTERPRETATION: 52941: Negative TCD bubble test. 71095: Mild stenosis in the right MCA.Suboptimal window on the left side. Both VA are antegrade. Signed 08/03/2017 07:31 AM Yousif Maurice MD, RPVI * Bronchoscopy (08/02/2017 2:19 PM) Narrative Leyda Pate MD 08/02/20172:19 PM Bronchoscopy Date/Time: 08/02/2017 2:16 PM Performed by: LEYDA HUBER V Authorized by: LEYDA HUBER V Consent: Consent obtained:Verbal Consent given by:Spouse Alternatives discussed:No treatment [place] protocol: Procedure explained and questions answered to [...] AM) Specimen Performing Laboratory [facility] [address] [place] [address] Narrative Vascular Ultrasound Laboratory Lower Extremity Venous Report [address]Name:Patience AGUILAR.ID:[id number] .Date: 08/02/2017Refer.MD:HILARIO MATHIS MD Exam Time: 9:58:00 AMStudy Type:LE Venous DOBAge:1950,66YSex: MALE Sonogrphr: Malcolm Benson, RVSPat. Stat.:Inpatient Room:[facility]1TapeVol: , CPT - 4: 74317 Echo Event ID:[id number] Order ID:[id number] Reason for Study:Leg swelling. Patient went into [...] Vascular Ultrasound Laboratory Lower Extremity Venous Report [address] [place] [address] Pat.Name: HILARIO AGUILAR Pat.ID: [id number] St.Date: 08/02/2017 Refer.MD: HILARIO MATHIS MD Exam Time: 9:58:00 AM Study Type:LE Venous Age: 1 1950,66Y Sex: MALE Sonogrphr: RICK Thornton Pat. Stat.:Inpatient Room: [facility]#1 Tape Vol: FE, CPT - 4: 19028 Echo Event ID:[id number] Order ID: [id number] Reason for Study:Leg swelling. Patient went into [...] myocardial injury. Specimen Performing Laboratory Plasma specimen [facility] DEPARTMENT OF PATHOLOGY AND GENOMIC MEDICINE [address] [place] [address] * Lactic acid level (08/02/2017 6:10 AM) Only the most recent of 2 results within the time period is included. Component Value Ref Range Lactic acid 2.2 0.5 - 2.2 mmol/L Specimen Performing Laboratory Plasma specimen [facility] DEPARTMENT OF PATHOLOGY AND GENOMIC MEDICINE [address] [place], [place] [phone] * Urinalysis, automated with microscopy (08/01/2017 11:50 [...] None seen UA Specimen Performing Laboratory Urine [facility] DEPARTMENT OF PATHOLOGY AND GENOMIC MEDICINE [address] [place] [address] * Blood culture, aerobic & anaerobic (08/01/2017 11:45 PM) Only the most recent of 2 results within the time period is included. Component Value Ref Range Blood culture isolate No growth after 5 days of incubation. Comment: Specimen Information Specimen Source: Blood Specimen Site: Antecubital, right Specimen Performing Laboratory Blood - Antecubital, [facility] DEPARTMENT OF PATHOLOGY AND GENOMIC MEDICINE right [address] [place] [address] * CT Angiogram Pe Chest (08/01/2017 10:48 PM) Specimen Performing Laboratory [facility] [address] [place] [address] Narrative EXAMINATION:CT ANGIOGRAM PE CHEST CLINICAL HISTORY: [...] PM and acknowledged understanding of the findings. [facility]-[id number] Procedure Note Interface, Radiology Results Incoming - [...] PM and acknowledged understanding of the findings. [facility]-[id number] * CK-MB (08/01/2017 9:10 PM) Only the most recent of 2 results within the time period is included. Component Value Ref Range CK-MB 1.8 1.0 - 10.4 ng/mL Specimen Performing Laboratory Plasma specimen [facility] DEPARTMENT OF PATHOLOGY AND GENOMIC MEDICINE [address] [place] [address] * Creatine kinase, total (CPK) (08/01/2017 9:10 PM) Only the most recent of 2 results within the time period is included. Component Value Ref Range Creatine kinase 136 39 - 308 U/L Specimen Performing Laboratory Plasma specimen [facility] DEPARTMENT OF PATHOLOGY AND GENOMIC MEDICINE [address] [place] [address] * INTUBATION (08/01/2017 7:39 PM) Narrative Leyda Pate MD 08/01/20177:39 PM Intubation Date/Time: 08/01/2017 7:35 PM Performed by: LEYDA HUEBR V Authorized by: LEYDA HUBER V Consent: Consent obtained:Verbal Consent given by:Spouse Risks discussed:Aspiration Alternatives discussed:No treatment [place] protocol: Procedure explained and questions answered to [...] 1.32 mmol/L Specimen Performing Laboratory Plasma specimen [facility] DEPARTMENT OF PATHOLOGY AND [facility] [address] [place] [address] * Sodium level (07/29/2017 10:25 PM) Only the most recent of 8 results within the time period is included. Component Value Ref Range Sodium 149 (H) 135 - 148 mEq/L Specimen Performing Laboratory Plasma specimen [facility] DEPARTMENT OF PATHOLOGY AND GENOMIC MEDICINE [address] [place] [address] * Echocardiogram transesophageal (07/28/2017 4:28 PM) Specimen [place] [address] Narrative Transesophageal Echo Report [address] [place], [place] [address] , [place] [address] Pat.Name:HILARIO AGUILARKatarzyna.ID:[id number] St.Date: 07/28/2017Refer.MD:HILARIO MATHIS MD Exam Time: 3:56:00 PMStudy Type:YELITZA Height:69inWeight:196lb BSA: 2.05 m2 DOBAge:1950 ,66Y Sex: MALEBP: 150/52 HR:53 bpmSonogrphr: Nena Orozco DO Colón. Stat.:Inpatient Study Status:Final Echo Event ID:[id number] Order ID:[id number] Reason for Study:EVAL FOR CARDIOVASCULAR SOURCE OF EMBOLUS WITH NO IDENTIFIED NONCARDIAC SOURCE. CRYPTOGENIC EMBOLIC STROKE History / Clinical:Diabetes, Hyperlipidemia, Hypertension Procedures:Transesophageal Echo with Colorflow Doppler Race:C SUMMARY: No thrombus or mass is visualized in the LA or LA appendage. Moderate atherosclerotic changes seen in the descending aorta. No intracardiac shunt detected on saline bubble study. FINDINGS: YELITZA:The attending auxiliary engineer performed the YELITZA procedure and waspresent for [...] Anesthesia: OtherASA Class: 4 Physician: Sonu Urrutia M.D.Cloud Systems Architect: Nena Orozco DO Pre TEEBP HR Post YELITZA BP HR 150/52 53 159/52 60 Meds:Viscous xylocaine, Cetacaine spray to oropharynx, Per Anesthesia Complications: None Condition: Stable MEASUREMENTS: 2D Parasternal Long Medora Ao Rtd 3.8 cm Signed 07/28/2017 05:37 PM Sonu Urrutia M.D. Procedure Note Interface, Radiology Results In - 07/28/2017 5:37 PM CDT Transesophageal Echo Report [address] [place], [place], [place] [address] Pat.Name: HILARIO AGUILAR Pat.ID: [id number] .Date: 07/28/2017 Refer.MD: HILARIO MATHIS MD Exam Time: 3:56:00 PM Study Type:YELITZA Height: 69in Weight: 196lb BSA: 2.05 m2 Age: 1 1950,66Y Sex: MALE BP: 150/52 HR: 53 bpm Sonogrphr: Nena Orozco DO Pat. Stat.:Inpatient Study Status:Final Echo Event ID:[id number] Order ID: [id number] Reason for Study:EVAL FOR CARDIOVASCULAR SOURCE OF EMBOLUS WITH NO IDENTIFIED NONCARDIAC SOURCE. CRYPTOGENIC EMBOLIC STROKE History / Clinical:Diabetes, Hyperlipidemia, Hypertension Procedures:Transesophageal Echo with Colorflow Doppler Race: C SUMMARY: No thrombus or mass is visualized in the LA or LA appendage. Moderate atherosclerotic changes seen in the descending aorta. No intracardiac shunt detected on saline bubble study. FINDINGS: YELITZA: The attending auxiliary engineer performed the YELITZA procedure and was present [...] ASA Class: 4 Physician: Sonu Urrutia M.D. Cloud Systems Architect: Nena Orozco DO Pre YELITZA BP HR Post YELITZA BP HR 150/52 53 159/52 60 Meds: Viscous xylocaine, Cetacaine spray to oropharynx, Per Anesthesia Complications: None Condition: Stable MEASUREMENTS: 2D Parasternal Long Medora Ao Rtd 3.8 cm Signed 07/28/2017 05:37 [...] Contrast (07/27/2017 1:00 PM) Specimen Performing Laboratory [address] [address] Narrative EXAMINATION:MRI BRAIN WO CONTRAST CLINICAL HISTORY:NEURO [...] different vascular distributions likely due to emboli. [id number] Procedure Note Hm Interface, Radiology Results Incoming [...] different vascular distributions likely due to emboli. [facility]-[id number] * MRA Head Wo Contrast (07/27/2017 12:38 PM) Specimen Performing Laboratory [facility] [address] [place] [address] Narrative EXAMINATION:MRA HEAD WO CONTRAST CLINICAL HISTORY:STROKE COMPARISON:CT of the head dated July 26, 2017 TECHNIQUE: Head MRA using 3D vefb-jj-qizrhp technique with multi-planar MIP and 3D reconstruction. [...] The posterior commuting arteries bilaterally are patent. [facility]-[id number] Procedure Note Interface, Radiology Results Incoming - 07/27/2017 1:15 PM CDT EXAMINATION: MRA HEAD WO CONTRAST CLINICAL HISTORY: STROKE COMPARISON: CT of the head dated July 26, 2017 TECHNIQUE: Head MRA using 3D wkwf-gd-[id number] technique with multi-planar MIP and 3D reconstruction. [...] The posterior commuting arteries bilaterally are patent. [facility]-[id number] * Urinalysis screen and microscopy, with reflex [...] None seen UA Specimen Performing Laboratory Urine [facility] DEPARTMENT OF PATHOLOGY AND GENOMIC MEDICINE [address] [place] [address] * Urine culture (07/27/2017 7:28 AM) Component Value Ref Range Urine culture SEE COMMENTComment: Bacteriuria screen negative. Specimen Performing Laboratory [facility] DEPARTMENT OF PATHOLOGY AND [facility] [address] [place] [address] * Echocardiogram complete w contrast and 3D if needed (07/27/2017 6:30 AM) [facility] [address] [place] [address] Narrative Echocardiography Report [address] [place] [address] Pat.Name:Patience AGUILAR.ID:[id number] .Date: 07/27/2017Refer.MD:HILARIO MATHIS MD Exam Time: 5:46:00 AMStudy Type:Routine Echo Height:69inWeight:196lb BSA: 2.05 m2 DOBAge:1950 ,66Y Sex: MALEBP: 140/51 HR:45 bpmSonogrphr: Lorin Quinones RDCS, RVT Pat. Stat.:Inpatient Room:- Study Status:Final Echo Event ID:[id number] Order ID:[id number] Reason for Study:Stroke History / Clinical:Diabetes, Hyperlipidemia, [...] PA systolic pressure. MEASUREMENTS: 2D Parasternal Long [place] LVOT 2.3 cmLA Ds 3.4 cm LVIDd5.2 cmIndex 2.5 cm/m Ao An2.4 cm LVIDs3.6 cmAo Rtd 3.5 cm Index1.7 cm/m LV%fs 30.8 % LV Pffh882 g(122-174) IVSd 1.3 cmLVM Index 143.4 g/m2 [...] - 07/27/2017 8:33 AM CDT Echocardiography Report [id number] [address] Pat.Name: HILARIO AGUILAR Pat.ID: [id number] St.Date: 07/27/2017 Refer.MD: HILARIO MATHIS MD Exam Time: 5:46:00 AM Study Type:Routine Echo Height: 69in Weight: 196lb BSA: 2.05 m2 Age: 1 1950,66Y Sex: MALE BP: 140/51 HR: 45 bpm Sonogrphr: Lorin Quinones RDCS, RVT Pat. Stat.:Inpatient Room: [place] [address] Study Status:Final Echo Event ID:[id number] Order ID: [id number] Reason for Study:Stroke History / Clinical:Diabetes, Hyperlipidemia, [...] PA systolic pressure. MEASUREMENTS: 2D Parasternal Long Medora LVOT 2.3 cm LA Ds 3.4 cm [...] , bleeding and pneumothorax Alternatives discussed:No treatment Marienthal protocol: Patient identity confirmed:Arm band and hospital-assigned [...] puncture, incorrect placement, bleeding, infection and pneumothorax Mar[place]hal protocol: Procedure explained and questions answered to [...] - 10 mm/hr Specimen Performing Laboratory Blood [facility] DEPARTMENT OF PATHOLOGY AND GENOMIC MEDICINE [address] [place] [address] * Prothrombin time with INR (07/26/2017 10:00 PM) Component Value Ref Range Prothrombin time 14.0 12.0 - 15.0 sec INR 1.1 Comment: The International Normalized Ratio (INR) is a therapeutic monitoring tool for patients who are stable on oral anticoagulant therapy. An INR of 2.0-3.0 is suggested for deep vein thrombosis/pulmonary embolism. Specimen Performing Laboratory Blood [facility] DEPARTMENT OF PATHOLOGY AND GENOMIC MEDICINE [address] [place] [address] * Fibrinogen (07/26/2017 10:00 PM) Component Value Ref Range Fibrinogen 349 200 - 450 mg/dL Specimen Performing Laboratory Blood [facility] DEPARTMENT OF PATHOLOGY AND GENOMIC MEDICINE [address] [place] [address] * Hemoglobin A1c (07/26/2017 10:00 PM) Component [...] type 1 diabetes. Specimen Performing Laboratory Blood [facility] DEPARTMENT OF PATHOLOGY AND GENOMIC MEDICINE [address] [place] [address] * Surgical pathology request (07/26/2017 3:40 PM) Only the most recent of 3 results within the time period is included. Component Value Ref Range Surgical pathology report See link below for PDF Lab Report Specimen Performing Laboratory [facility] DEPARTMENT OF PATHOLOGY AND [facility] [address] [place] [address] * IR Perq Art M-Thrombect NFS (07/26/2017 2:39 PM) Specimen Performing Laboratory [place] [id number] Narrative Clinical History: 66-year-old male who was [...] Initial posttreatment left internal carotid injection shows synagogue of flow into the middle cerebral artery [...] clot was again forming in this region. [facility]-[id number] Procedure Note Hm Interface, Radiology Results Incoming [...] Initial posttreatment left internal carotid injection shows synagogue of flow into the middle cerebral artery [...] clot was again forming in this region. [facility]-[id number] * CT Stroke Brain Wo Contrast (07/26/2017 1:19 PM) Specimen Performing Laboratory [facility] [address] [facility] [place] [address] Narrative EXAMINATION: CT STROKE BRAIN WO CONTRAST [...] with endovascular neuroradiologist at time of dictation. [facility]-[id number] Procedure Note Interface, Radiology Results Incoming - [...] with endovascular neuroradiologist at time of dictation. [facility]-[id number] * CTA Neck W Wo Contrast (07/26/2017 1:18 PM) Specimen Performing Laboratory [facility] [address] [place] [address] Narrative EXAMINATION:CT ANGIOGRAM NECK W WO CONTRAST [...] the right. Otherwise no vessel stenosis demonstrated. [facility]-[id number] Procedure Note Interface, Radiology Results Incoming - [...] the right. Otherwise no vessel stenosis demonstrated. [facility]-[id number] * CTA Head W Wo Contrast (07/26/2017 1:16 PM) Specimen Performing Laboratory [facility] [address] [place] [address] Narrative EXAMINATION: CT ANGIOGRAM HEAD W WO [...] of dictation at 1330 hours on 07/26/2017. [facility]-[id number] Procedure Note Interface, Radiology Results Incoming - [...] of dictation at 1330 hours on 07/26/2017. [facility]-[id number] * Thyroid stimulating hormone (07/26/2017 12:53 PM) Component Value Ref Range TSH 0.75 0.27 - 4.20 uIU/mL Specimen Performing Laboratory Plasma specimen [facility] DEPARTMENT OF PATHOLOGY AND GENOMIC MEDICINE [address] [place] [address] * T4, free (07/26/2017 12:53 PM) Component Value Ref Range T4, free 1.1 0.9 - 1.7 ng/dL Specimen Performing Laboratory Plasma specimen [facility] DEPARTMENT OF PATHOLOGY AND GENOMIC MEDICINE [address] [place] [address] * Lipid panel (07/26/2017 12:53 PM) Component [...] (>=200 mg/dL) Specimen Performing Laboratory Plasma specimen [facility] DEPARTMENT OF PATHOLOGY AND [address] [address] * Syphilis treponemal IgG (07/26/2017 12:21 PM) Component Value Ref Range Syphilis treponemal IgG Non-reactiveComment: Non-reactive: No serological Non-reactive evidence of Syphilis infection Specimen Performing Laboratory Serum [facility] [address] [address] * HIV 1, 2 antibody (07/26/2017 12:21 PM) Component Value Ref Range HIV 1, 2 antibody Non-reactive Non-reactive Comment: Starting from January 06 2016, 4th generation HIV screening and confirmation assays are in use at [facility], consistent with the CDC-recommended algorithm. [...] on the testing algorithm, please refer to: http://stacks.cdc.gov/view/cdc/41073. Specimen Performing Laboratory Blood [facility] OF PATHOLOGY AND [facility] [address] [place] [address] * Folate level (07/26/2017 12:21 PM) Component Value Ref Range Folate 10.1 4.8 - 24.2 ng/mL Specimen Performing Laboratory Serum [facility] AND [facility] [address] [place] [address] * Vitamin B12 level (07/26/2017 12:21 PM) Component Value Ref Range Vitamin B12 329 211 - 946 pg/mL Comment: Significant overlap exists between normal and deficiency states. However, most patients with deficiencies will have Serum B12 <200 pg/mL. Specimen Performing Laboratory Serum [facility] AND [facility] [address] [place] [address], [place] [address] * XR Pelvis 1 Or 2 Vw (07/26/2017 9:29 AM) Only the most recent of 3 results within the time period is included. Specimen Performing Laboratory [facility] [address] [place] [address] Narrative EXAMINATION:XR PELVIS 1 OR 2 VW [...] is pre-existing intact left hip prosthesis. after 02/27/2017 Insurance Payer Benefit Subscriber ID Type Phone Address Plan / Group MEDICARE MEDICARE xxxxxxxxxx Medicare [place], [place] PART A AND B [employer] xxxxxxxxxx Commercial Inventalator LIFE INS [facility] [place] [address]
--- OUTSIDE RECORDS SUMMARY | 2018-02-28 09:05 | XMS REPORT | Clinical Summary ---
Author Author [facility] Organization [facility] Address Unknown Phone Unavailable Care Team Providers Care Nozzle Cement Sprayer Helper Name Role Phone PCP Unavailable Allergies Active [...] Not on file Implants Implanted Type Area Accounting Instructor Device Expiration Model / Identifier Date Serial / Lot Device Clsr Angio-Seal Vip 6fr Cardiovasc Right: ST IAN 06/09/2017 [id number] / [id number] - [id number] Leiva MED:CARDIAC / Implanted: Qty: 1 on 09/08/2016 by [id number] [id number] Charles Beyer MD Synergy Stents-Cor Right: [place] 06/04/2017 [id number] Implanted: Qty: 1 on 09/08/2016 by onZoomph Coronary SCIENTIFIC 6300 / Charles Beyer MD / [id number] Resolute Intergrity MEDTRONIC 07/02/2015 [id number] Implanted: Qty: 1 on 11/13/2014 by Colleen / Charles Beyer MD / [id number] Resolute Vintergrity 12/07/2015 [id number] Implanted: Qty: 1 on 11/13/2014 by Charles Wyatt MD / [id number] Angioseal [employer]AN [employer]ICAL 04/08/2015 [id number] / Implanted: Qty: 1 on 11/13/2014 by LAWANDA / Charles Beyer MD [id number] Results Not on fileafter 02/27/2017
--- OUTSIDE RECORDS SUMMARY | 2018-02-28 09:05 | XMS REPORT | Continuity of Care Document ---
Author Author [facility] Organization [facility] Address [address] [place] [address] Phone Unavailable Care Team Providers Care Acid Leveler Name Role Phone JESÚS MARTINEZ MD PCP Insurance Providers Guarantor Hilario Marsh Jr Address [address] [place] [address] Email [email or web address] Payer Medicare A & B Policy Number [id number] Subscriber's Name Hilario Marsh Jr Relationship 18 Self / Same As Patient Group Number [id number] Group Name RETIRED Effective Date 13 Payer Aetna Medicare Supplement Plan Policy Number [id number] Subscriber's Name Hilario Marsh Jr Relationship 18 Self / Same As Patient Advance Directives Directive Response Recorded Date/Time Does the patient have an advance directive? No 10/07/17 3:41am If yes, is advance directive on file with [facility]? No 06/30/09 1:49am If not on file with [facility] will patient provide a copy? No 02/27/18 3:22pm Do you have a Directive to Physician? No 02/27/18 3:22pm Do you have a Medical Power of Freight Router? No 02/27/18 3:22pm Do you have an out of hospital Do Not Resuscitate Order? No 02/27/18 3:22pm Do you have any special needs we should be aware of? No 02/27/18 3:22pm Do you have a support person here with you today? Yes 02/27/18 3:22pm Did patient receive Notice of Privacy Practices? Yes 02/27/18 3:22pm Did patient receive patient rights and responsibilities? Yes 02/27/18 3:22pm Problems Medical Problem Onset Date Status Dislodged [...] Yes 10/07/2017 3:41am Not Applicable Not Applicable Smoking Status Start Date Stop Date Former smoker Hospital Discharge Instructions No hospital discharge instruction information available. Plan of Care Discharge Date 02/27/18 7:05pm Disposition HOME, SELF-CARE Condition at Discharge Stable Forms Provided Work/School Excuse Prescriptions See Medication Section Referrals JESÚS MARTINEZ MD Address: [address] [place] [id number] Additional Instructions/Education FOLLOW UP WITH YOUR PRIMARY CARE DOCTOR NEEDED. CHANGE G-TUBE DRESSING DAILY, CLEAN SKIN AROUND WITH SOAP AND WATER TO PREVENT IRRITATION. FLUSH TUBE WITH 30 ML OF WARM WATER AT LEAST EVERY 6-8 HRS. COME BACK TO ER IF ANY COMPLICATIONS OCCUR. Functional Status No functional status information available. Allergies, Adverse Reactions, Alerts Allergen Type Severity Reaction Status Last Updated Penicillin Allergy Mild Active 01/04/18 Immunizations No immunization information available. Vital Signs Acute Vital Signs Vital Response Date/Time Temperature (Fahrenheit) 98.0 degrees F (97.6 - 99.5) 01/04/2018 3:39pm Pulse Pulse Rate (adult) 79 bpm (60 - 90) 02/27/2018 5:44pm Respiratory Rate 20 bpm (12 - 24) 02/27/2018 5:44pm Blood Pressure 107/72 mm Hg 02/27/2018 5:44pm Height 5 ft 8 in 02/27/2018 1:59pm Weight 174 lb 02/27/2018 1:59pm Body Mass Index 26.5 kg/m^2 02/27/2018 1:59pm Results Laboratory Results Test Name Result Units Flags Reference Collection Date/Time Result Date/ Time Comments Bedside Glucose 127 mg/dL H 70-120 10/07/2017 12:14pm 10/07/2017 12: 26pm Meter ID: [id number] White Blood Count 7.26 x10e3/uL 4.8-10.8 01/04/2018 [...] 1:39pm Blood Urea Nitrogen 27 mg/dL H 7-26 01/04/2018 12:44pm 01/04/2018 1: 39pm Creatinine 1.04 mg/dL [...] brain without radiopaque contrast Active 01/04/18 OBED VILLEGAS MD Encounters Encounter Location Arrival/Admit Date Discharge/Depart Date Attending Provider Departed Emergency Room [facility] 02/27/18 1:56pm 7:05pm LEXIS BARGER MD Departed Emergency Room [facility] 01/04/18 12:37pm 01/04 3:49pm OBED VILLEGAS MD Departed Emergency Room [facility] 12/10/17 5:40pm 9:58pm ABDIAS SIMMONS MD Registered Referred [facility] 11/21/17 12:42pm JAXSON SOSA MD Registered Referred [facility] 10/31/17 10:37am JAXSON SOSA MD Registered Referred [facility] 10/20/17 10:35am JAXSON SOSA MD Discharged Inpatient (obs) [facility] 10/07/17 12:17am 2:55pm JAXSON SOSA MD Departed Emergency Room [facility] 10/05/17 4:58pm 5:07pm LEXIS BARGER MD Departed Emergency Room [facility] 10/05/17 7:49am 10:20am LEXIS BARGER MD
[2018-02-28] MEDS ORDERED: LIDOCAINE HCL 1% LOCAL INJ 20 ML VIAL ONE (09:46)
[2018-02-28] MEDS ORDERED: LIDOCAINE HCL 1% LOCAL INJ 20 ML VIAL INJ ONE (10:00)
[2018-02-28] MEDS ORDERED: DIATRIZOATE MEGL/DIATRIZOA SOD 30 ML BTL PO ONE (10:15)
--- NOTE | 2018-02-28 10:57 | Diagnostic Imaging Report ---
PROCEDURE:ABDOMEN-1VIEW (KUB) TECHNIQUE:Portable supine AP abdomen INDICATION:Gastrostomy tube check COMPARISON:[facility], DX, ABDOMEN-1VIEW (KUB), 02/27/2018, 17:10. FINDINGS: See conclusion. CONCLUSION: 1. Positive enteric contrast in the stomach with overlying gastrostomy. 2. Normal bowel gas pattern. Dictated by: Quintin Bang M.D. on 02/28/2018 at 10:59 Electronically approved by: Quintin Bang M.D. on 02/28/2018 at 10:59
[2018-02-28 11:41] VITALS: BP 132/78
== END 2018-02-28 11:12 | disposition home or self-care (01) ==
LOC: ER 09:03
DX: Z43.1 Encounter for attention to gastrostomy (principal); I10 Essential (primary) hypertension; E11.9 Type 2 diabetes mellitus without complications; Z86.73 Personal history of transient ischemic attack (TIA), and cerebral infarction without residual deficits
CPT/HCPCS: 49440; 74018; 99284; J2001